=== PATIENT | female | born 1980 | race African-American/Black ===

== ENCOUNTER 2016-04-25 13:12 | Emergency (ER) | payer SELFPAY ==
--- NOTE | 2016-04-25 15:20 | EDDOCDS ---
Nurse's Notes [facility] Name: Jose Carlos Larry Age: 35 yrs Sex: Female : 1980 Arrival Date: 04/25/2016 Time: 13:12 Bed Family 1 Private MD: NO PRIMARY PHYSICIAN, . Diagnosis: Headache-carboxyhemaglobin level of 1.9% Presentation: 04/25 13:24 Presenting complaint: Patient states: here for carbon monoxide exposure . Some SOB, ttb nausea. Adult Sepsis Screening: The patient does not have new or worsening altered mentation. Patient's respiratory rate is less than 22. Systolic blood pressure is greater than 100. Patient has a qSOFA score of 0- Negative Sepsis Screen. Suicide/Homicide risk assessment- the patient denies having any suicidal and/or homicidal ideations and does not present with any other emotional, behavioral or mental health complaints. Status: Patient is not a reactor service operator or dependent. Transition of care: patient was not received from another setting of care. 13:24 Acuity: SHELLEY Level 4 ttb 13:24 Method Of Arrival: Walkin/Carried/Asstd ttb Triage Assessment: 13:22 General: Appears in no apparent distress, well nourished, well groomed, Behavior is ttb appropriate for age, cooperative, pleasant. Pain: Location: left lower leg pain. HIV screening NA for this visit Offered previously. Neurological: Level of Consciousness is awake, alert, Reports headache. Cardiovascular: Chest pain is denied. Respiratory: No deficits noted. Airway is patent Respiratory effort is even, unlabored. Respiratory: Reports shortness of breath at rest on exertion the patient has mild shortness of breath. GI: Reports nausea. Derm: Skin is normal. Injury Description: No known injury. 13:26 Pain: Location: bilateral legs from knee to foot. 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 none - PMHx: gestational diabetes; possible CHF; - PSHx: none; - Social history: Smoking status: Patient states was never smoker of tobacco. Patient/guardian denies using alcohol, street drugs, No barriers to communication noted, The patient speaks fluent Slovak, Speaks appropriately for age. - Family history: Pertinent for recent upper respiratory infection symptoms. - : The pt / caregiver states he / she is not on anticoagulants. Home medication list is obtained from the patient. - Exposure Risk Screening:: None identified. Screenin:18 Screening information is obtained from the patient. Fall risk: No risks identified. srm Assistance ADL's: requires no assistance with activities of daily living. Abuse/DV Screen: The patient / caregiver reports he/she is: not in a situation that causes fear, pain or injury. Nutritional screening: On. Nutritional screening: No deficits noted. Advance Directives: There is no active DNR order. home support is adequate. Assessment: 14:26 General: Appears in no apparent distress, Behavior is appropriate for age, cooperative. srm Neurological: No deficits noted. EENT: No deficits noted. Respiratory: No deficits noted. GI: No deficits noted. 15:18 General: Appears in no apparent distress, Behavior is appropriate for age, cooperative. srm Pain: Denies pain. Neurological: No deficits noted. EENT: No deficits noted. Respiratory: No deficits noted. Social Work Consult: 14:40 Social Work Note: Patient brought her children in with flu-like sx. During the course jl of their evaluation, they were noted to have carboxyhemoglobin levels that are consistent of a smoker. Patient denied any smokers in their residence & denied the use of any portable/secondary heaters. As a result, she & her 3rd child (who was asymptomatic) registered as patients. Both parties were found to have slightly elevated levels as well. Family was discussed with Swati Ramírez, pipe fitter, as well as [employer] (Isabel Waters), [facility] Leanna (Luciana Caldwell) & [facility] Code Enforcement Office. Classroom Paraprofessional (Pan Toño: [phone]) went to the residence & reported finding no evidence of any CO leak. They reportedly changed the battery in the smoke/CO detector in the unit while there & has cleared the family to return home. Patient denied having any other D/C planning needs at this time. Support extended. Vital Signs: 13:25 BP 129 / 88; Pulse 105; Resp 18; Temp 97.8(O); Pulse Ox 99% on R/A; Weight 104.33 kg jjr (R); Height 5 ft. 2 in. (157.48 cm) (R); Pain 8/10; 14:37 BP 142 / 94; Pulse 102; Resp 18; Temp 98.5(O); Pulse Ox 99% on R/A; Pain 0/10; dem1 13:25 Body Mass Index 42.07 (104.33 kg, 157.48 cm) [facility] Vitals: 13:14 Log In Time: April 25, 2016 at 13:12. elp ED Course: 13:14 Patient visited by Belkis Louise PCA. elp 13:14 NO PRIMARY PHYSICIAN, . is Private Physician. elp 13:14 Patient visited by Belkis Louise PCA. elp 13:14 Patient moved to Waiting elp 13:16 Patient moved to Family 1 kc3 13:22 [facility] ar2 13:22 Jonas Melendez MD is Attending Physician. ar2 13:23 Patient visited by Kerrie Quijano RN. ttb 13:24 Patient visited by Kerrie Quijano RN. ttb 13:24 Triage Initiated ttb 13:28 Patient visited by Piero Garcia PA-C. ar2 14:27 Patient visited by Kiley Cardozo, MONSE. srm 14:29 Patient name changed from Vernette\S\\S\Larry\S\ to Vernette\S\ \S\Larry. EDMS 14:35 [facility] Payment Agreement was scanned into [employer] and attached to record. mm15 14:37 Patient visited by Mikal Venegas. dem1 15:19 The patient / caregiver is instructed regarding the plan of care and ED course. srm Accompanied by Family Member, Patient has correct armband on for positive identification. 15:19 No IV's were initiated during this patient's visit. No procedures done that require srm assistance. Order Results: Lab Order: Carboxyhemoglobin; SPEC'M 04/25/16 13:23 Test: CARBOXYHEMOGLOBIN; Value: 1.9; Range: 0.0-1.5; Abnormal: Above high normal; Units: %; Status: F Test Note: ; CARBOXYHEMOGLOBIN EXPECTED VALUES SUBURBAN NON-SMOKERS LESS THAN 1.5% SMOKERS 1.5-5.0% HEAVY SMOKERS 5.0-9.0% Outcome: 14:43 Discharge ordered by Provider. ar2 15:19 Discharge Assessment: Patient awake, alert and oriented x 3. No cognitive and/or srm functional deficits noted. Patient verbalized understanding of disposition instructions. patient administered narcotics - no. The following High Risk Discharge criteria are identified: None. Discharged to home with family. Condition: stable. Discharge instructions given to patient, Instructed on discharge instructions, follow up and referral plans. Demonstrated understanding of instructions, Pt was receptive of discharge instructions/ teaching. No special radiology studies were completed. Property sent home with patient. 15:19 Patient left the ED. srm Signatures: Dispatcher MedHost EDMS Kiley Cardozo, RN RN srm Jake, Larry, PSA PSA Tala Long RN RN jjr Robertshaw, Aaron, PA-C PAAlberto ar2 Mikal Venegas1 Kerrie Quijano RN RN ttb Isa Rodríguez mm15 Belkis Louise, WORKS MANAGER WORKS MANAGER Salima CuencaRN RN kc3 Corrections: (The following items were deleted from the chart) 15:00 14:40 Social Work Note: Patient brought her children in with flu-like sx. During the course of their evaluation, they were noted to have carboxyhemoglobin levels that are consistent of a smoker. Patient denied any smokers in their residence & denied the use of any portable/secondary heaters. As a result, she & her 3rd child (who was asymptomatic) registered as patients. Both parties were found to have slightly elevated levels as well. Family was discussed with Swati Ramírez, pipe fitter, as well as JC, [facility] & [facility] Code Enforcement Office. Code Enforcement went to the residence & reported finding no evidence of any CO leak. They reportedly changed the battery in the smoke/CO detector in the unit while there & has cleared the family to return home. Patient denied having any other D/C planning needs at this time. Support extended 15:19 15:18 Family history Not pertinent, srm srm MTDD
--- NOTE | 2016-04-25 15:20 | EDDOCDS ---
Physician Documentation [facility] Name: Jose Carlos Larry Age: 35 yrs Sex: Female : 1980 Arrival Date: 04/25/2016 Time: 13:12 Bed Family 1 Private MD: NO PRIMARY PHYSICIAN, . Disposition: 04/25/16 14:43 Discharged to Home/Self Care. Impression: Headache - carboxyhemaglobin level of 1.9%. - Condition is Stable. - Discharge Instructions: Carbon Monoxide Poisoning, General Headache Without Cause. - Referral List Call for Appointment, Medication Reconciliation, Local Pharmacy Hours form. - Follow up: Emergency Department; When: As needed; Reason: Trouble breathing, Worsening of conditions. - Problem is new. - Symptoms are resolved. - Notes: may use tylenol or ibuprofen for headache as needed. your apartment has been investigated and found safe to reside in, there is no carbon monoxide leak Historical: - Allergies: no known allergies; - Home Meds: 1. none - PMHx: gestational diabetes; possible CHF; - PSHx: none; - Social history: Smoking status: Patient states was never smoker of tobacco. Patient/guardian denies using alcohol, street drugs, No barriers to communication noted, The patient speaks fluent Grenadian, Speaks appropriately for age. - Family history: Pertinent for recent upper respiratory infection symptoms. - : The pt / caregiver states he / she is not on anticoagulants. Home medication list is obtained from the patient. - Exposure Risk Screening:: None identified. 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 2 in. (157.48 cm) (R); Pain 8/10; 14:37 BP 142 / 94; Pulse 102; Resp 18; Temp 98.5(O); Pulse Ox 99% on R/A; Pain 0/10; dem1 13:25 Body Mass Index 42.07 (104.33 kg, 157.48 cm) jjr MDM: 13:26 Carboxyhemoglobin Ordered. EDMS 13:43 Carboxyhemoglobin Reviewed. ar2 13:45 Financial registration complete. mm15 14:35 [facility] Payment Agreement was scanned into [employer] and attached to record. mm15 Signatures: Dispatcher MedHost Kiley Kay RN RN srm Piero Garcia, SANJU PAAlberto ar2 Kerrie Quijano RN RN ttb Isa Rodríguez mm15 The chart was reviewed and I authenticate all verbal orders and agree with the evaluation and treatment provided.Corrections: (The following items were deleted from the chart) 15:19 15:18 Family history Not pertinent, srm srm Attachments: 14:35 [facility] Payment Agreement mm15 MTDD
--- NOTE | 2016-04-27 16:20 | EDDOCDS ---
Physician Documentation [facility] Name: Jose Carlos Larry Age: 35 yrs Sex: Female : 1980 Arrival Date: 04/25/2016 Time: 13:12 Bed Family 1 Private MD: NO PRIMARY PHYSICIAN, . Disposition: 04/25/16 14:43 Discharged to Home/Self Care. Impression: Headache - carboxyhemaglobin level of 1.9%. - Condition is Stable. - Discharge Instructions: Carbon Monoxide Poisoning, General Headache Without Cause. - Referral List Call for Appointment, Medication Reconciliation, Local Pharmacy Hours form. - Follow up: Emergency Department; When: As needed; Reason: Trouble breathing, Worsening of conditions. - Problem is new. - Symptoms are resolved. - Notes: may use tylenol or ibuprofen for headache as needed. your apartment has been investigated and found safe to reside in, there is no carbon monoxide leak Historical: - Allergies: no known allergies; - Home Meds: 1. none - PMHx: gestational diabetes; possible CHF; - PSHx: none; - Social history: Smoking status: Patient states was never smoker of tobacco. Patient/guardian denies using alcohol, street drugs, No barriers to communication noted, The patient speaks fluent Irish, Speaks appropriately for age. - Family history: Pertinent for recent upper respiratory infection symptoms. - : The pt / caregiver states he / she is not on anticoagulants. Home medication list is obtained from the patient. - Exposure Risk Screening:: None identified. 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 2 in. (157.48 cm) (R); Pain 8/10; 14:37 BP 142 / 94; Pulse 102; Resp 18; Temp 98.5(O); Pulse Ox 99% on R/A; Pain 0/10; dem1 13:25 Body Mass Index 42.07 (104.33 kg, 157.48 cm) jjr MDM: 13:26 Carboxyhemoglobin Ordered. EDMS 13:43 Carboxyhemoglobin Reviewed. ar2 13:45 Financial registration complete. mm15 14:35 [facility] Payment Agreement was scanned into [employer] and attached to record. mm15 17:25 T-Sheet-- Draft Copy was scanned into Gem[employer] and attached to record. klr Signatures: Dispatcher MedHost Kiley Kay RN RN srm Piero Garcia, SANJU BILLS ar2 Kerrie Quijano RN RN ttb McGrath, Marlynn mm15 Alejandra Abdul klr The chart was reviewed and I authenticate all verbal orders and agree with the evaluation and treatment provided.Corrections: (The following items were deleted from the chart) 15:19 15:18 Family history Not pertinent, srm srm Attachments: 14:35 [facility] Payment Agreement mm15 17:25 T-Sheet-- Draft Copy klr Chart Complete MTDD
--- NOTE | 2016-04-27 16:20 | EDDOCDS ---
Nurse's Notes [facility] Name: Jose Carlos Larry Age: 35 yrs Sex: Female : 1980 Arrival Date: 04/25/2016 Time: 13:12 Bed Family 1 Private MD: NO PRIMARY PHYSICIAN, . Diagnosis: Headache-carboxyhemaglobin level of 1.9% Presentation: 04/25 13:24 Presenting complaint: Patient states: here for carbon monoxide exposure . Some SOB, ttb nausea. Adult Sepsis Screening: The patient does not have new or worsening altered mentation. Patient's respiratory rate is less than 22. Systolic blood pressure is greater than 100. Patient has a qSOFA score of 0- Negative Sepsis Screen. Suicide/Homicide risk assessment- the patient denies having any suicidal and/or homicidal ideations and does not present with any other emotional, behavioral or mental health complaints. Status: Patient is not a job service consultant or dependent. Transition of care: patient was not received from another setting of care. 13:24 Acuity: SHELLEY Level 4 ttb 13:24 Method Of Arrival: Walkin/Carried/Asstd ttb Triage Assessment: 13:22 General: Appears in no apparent distress, well nourished, well groomed, Behavior is ttb appropriate for age, cooperative, pleasant. Pain: Location: left lower leg pain. HIV screening NA for this visit Offered previously. Neurological: Level of Consciousness is awake, alert, Reports headache. Cardiovascular: Chest pain is denied. Respiratory: No deficits noted. Airway is patent Respiratory effort is even, unlabored. Respiratory: Reports shortness of breath at rest on exertion the patient has mild shortness of breath. GI: Reports nausea. Derm: Skin is normal. Injury Description: No known injury. 13:26 Pain: Location: bilateral legs from knee to foot. 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 none - PMHx: gestational diabetes; possible CHF; - PSHx: none; - Social history: Smoking status: Patient states was never smoker of tobacco. Patient/guardian denies using alcohol, street drugs, No barriers to communication noted, The patient speaks fluent Lithuanian, Speaks appropriately for age. - Family history: Pertinent for recent upper respiratory infection symptoms. - : The pt / caregiver states he / she is not on anticoagulants. Home medication list is obtained from the patient. - Exposure Risk Screening:: None identified. Screenin:18 Screening information is obtained from the patient. Fall risk: No risks identified. srm Assistance ADL's: requires no assistance with activities of daily living. Abuse/DV Screen: The patient / caregiver reports he/she is: not in a situation that causes fear, pain or injury. Nutritional screening: On. Nutritional screening: No deficits noted. Advance Directives: There is no active DNR order. home support is adequate. Assessment: 14:26 General: Appears in no apparent distress, Behavior is appropriate for age, cooperative. srm Neurological: No deficits noted. EENT: No deficits noted. Respiratory: No deficits noted. GI: No deficits noted. 15:18 General: Appears in no apparent distress, Behavior is appropriate for age, cooperative. srm Pain: Denies pain. Neurological: No deficits noted. EENT: No deficits noted. Respiratory: No deficits noted. Social Work Consult: 14:40 Social Work Note: Patient brought her children in with flu-like sx. During the course jl of their evaluation, they were noted to have carboxyhemoglobin levels that are consistent of a smoker. Patient denied any smokers in their residence & denied the use of any portable/secondary heaters. As a result, she & her 3rd child (who was asymptomatic) registered as patients. Both parties were found to have slightly elevated levels as well. Family was discussed with Swati Ramírez, ecology professor, as well as [facility] (Isabel Waters), [facility] Leanna (Luciana Caldwell) & [facility] Code Enforcement Office. Tip Mender (Pan Toño: [phone]) went to the residence & reported finding no evidence of any CO leak. They reportedly changed the battery in the smoke/CO detector in the unit while there & has cleared the family to return home. Patient denied having any other D/C planning needs at this time. Support extended. Vital Signs: 13:25 BP 129 / 88; Pulse 105; Resp 18; Temp 97.8(O); Pulse Ox 99% on R/A; Weight 104.33 kg jjr (R); Height 5 ft. 2 in. (157.48 cm) (R); Pain 8/10; 14:37 BP 142 / 94; Pulse 102; Resp 18; Temp 98.5(O); Pulse Ox 99% on R/A; Pain 0/10; dem1 13:25 Body Mass Index 42.07 (104.33 kg, 157.48 cm) [facility] Vitals: 13:14 Log In Time: April 25, 2016 at 13:12. elp ED Course: 13:14 Patient visited by Belkis Louise PCA. elp 13:14 NO PRIMARY PHYSICIAN, . is Private Physician. elp 13:14 Patient visited by Belkis Louise PCA. elp 13:14 Patient moved to Waiting elp 13:16 Patient moved to Family 1 kc3 13:22 [facility] ar2 13:22 Jonas Melendez MD is Attending Physician. ar2 13:23 Patient visited by Kerrie Quijano RN. ttb 13:24 Patient visited by Kerrie Quijano RN. ttb 13:24 Triage Initiated ttb 13:28 Patient visited by Piero Garcia PA-C. ar2 14:27 Patient visited by Kiley Cardozo RN. srm 14:29 Patient name changed from Vernette\S\\S\Larry\S\ to Vernette\S\ \S\Larry. EDMS 14:35 [facility] Payment Agreement was scanned into [employer] and attached to record. mm15 14:37 Patient visited by Mikal Venegas. dem1 15:19 The patient / caregiver is instructed regarding the plan of care and ED course. srm Accompanied by Family Member, Patient has correct armband on for positive identification. 15:19 No IV's were initiated during this patient's visit. No procedures done that require srm assistance. 17:25 T-Sheet-- Draft Copy was scanned into T[employer] and attached to record. klr Order Results: Lab Order: Carboxyhemoglobin; SPEC'M 04/25/16 13:23 Test: CARBOXYHEMOGLOBIN; Value: 1.9; Range: 0.0-1.5; Abnormal: Above high normal; Units: %; Status: F Test Note: ; CARBOXYHEMOGLOBIN EXPECTED VALUES SUBURBAN NON-SMOKERS LESS THAN 1.5% SMOKERS 1.5-5.0% HEAVY SMOKERS 5.0-9.0% Outcome: 14:43 Discharge ordered by Provider. ar2 15:19 Discharge Assessment: Patient awake, alert and oriented x 3. No cognitive and/or srm functional deficits noted. Patient verbalized understanding of disposition instructions. patient administered narcotics - no. The following High Risk Discharge criteria are identified: None. Discharged to home with family. Condition: stable. Discharge instructions given to patient, Instructed on discharge instructions, follow up and referral plans. Demonstrated understanding of instructions, Pt was receptive of discharge instructions/ teaching. No special radiology studies were completed. Property sent home with patient. 15:19 Patient left the ED. srm Signatures: Dispatcher MedHost EDMS Kiley Cardozo, RN RN srm Larry Joseph, CARLINE PSA Tala Long RN RN jPiero Pelayo, PA-C PA-C ar2 Mikal Venegas1 Kerrie Quijano RN RN Isa Joe mm15 Belkis Louise, CORI REAL ESTATE FINANCIAL ANALYST Salima Cuenca RN RN [id number] Alejandra Abdul Corrections: (The following items were deleted from the chart) 15:00 14:40 Social Work Note: Patient brought her children in with flu-like sx. During the jl course of their evaluation, they were noted to have carboxyhemoglobin levels that are consistent of a smoker. Patient denied any smokers in their residence & denied the use of any portable/secondary heaters. As a result, she & her 3rd child (who was asymptomatic) registered as patients. Both parties were found to have slightly elevated levels as well. Family was discussed with Swati Ramírez, ecology professor, as well as JC, [facility] & [facility] Code Enforcement Office. Code Enforcement went to the residence & reported finding no evidence of any CO leak. They reportedly changed the battery in the smoke/CO detector in the unit while there & has cleared the family to return home. Patient denied having any other D/C planning needs at this time. Support extended jl 15:19 15:18 Family history Not pertinent, srm srm Chart Complete MTDD
--- NOTE | 2016-04-27 16:20 | EDDOCDS ---
Physician Documentation [facility] Name: Jose Carlos Larry Age: 35 yrs Sex: Female : 1980 Arrival Date: 04/25/2016 Time: 13:12 Bed Family 1 Private MD: NO PRIMARY PHYSICIAN, . Disposition: 04/25/16 14:43 Discharged to Home/Self Care. Impression: Headache - carboxyhemaglobin level of 1.9%. - Condition is Stable. - Discharge Instructions: Carbon Monoxide Poisoning, General Headache Without Cause. - Referral List Call for Appointment, Medication Reconciliation, Local Pharmacy Hours form. - Follow up: Emergency Department; When: As needed; Reason: Trouble breathing, Worsening of conditions. - Problem is new. - Symptoms are resolved. - Notes: may use tylenol or ibuprofen for headache as needed. your apartment has been investigated and found safe to reside in, there is no carbon monoxide leak Historical: - Allergies: no known allergies; - Home Meds: 1. none - PMHx: gestational diabetes; possible CHF; - PSHx: none; - Social history: Smoking status: Patient states was never smoker of tobacco. Patient/guardian denies using alcohol, street drugs, No barriers to communication noted, The patient speaks fluent Bhutanese, Speaks appropriately for age. - Family history: Pertinent for recent upper respiratory infection symptoms. - : The pt / caregiver states he / she is not on anticoagulants. Home medication list is obtained from the patient. - Exposure Risk Screening:: None identified. 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 2 in. (157.48 cm) (R); Pain 8/10; 14:37 BP 142 / 94; Pulse 102; Resp 18; Temp 98.5(O); Pulse Ox 99% on R/A; Pain 0/10; dem1 13:25 Body Mass Index 42.07 (104.33 kg, 157.48 cm) jjr MDM: 13:26 Carboxyhemoglobin Ordered. EDMS 13:43 Carboxyhemoglobin Reviewed. ar2 13:45 Financial registration complete. mm15 14:35 [facility] Payment Agreement was scanned into [employer] and attached to record. mm15 17:25 T-Sheet-- Draft Copy was scanned into [employer] and attached to record. klr Signatures: Dispatcher MedHost Kiley Kay RN RN srm Piero Garcia, SANJU BILLS ar2 Kerrie Quijano RN RN ttb McGrath, Marlynn mm15 Alejandra Abdul klr The chart was reviewed and I authenticate all verbal orders and agree with the evaluation and treatment provided.Corrections: (The following items were deleted from the chart) 15:19 15:18 Family history Not pertinent, srm srm Attachments: 14:35 [facility] Payment Agreement mm15 17:25 T-Sheet-- Draft Copy klr Chart Complete MTDD
== END 2016-04-25 15:19 | disposition home or self-care (01) ==
LOC: M ED 13:12
DX: R51 Headache (principal); R79.9 Abnormal finding of blood chemistry, unspecified; Z86.32 Personal history of gestational diabetes

== ENCOUNTER 2016-11-25 09:30 | Emergency (ER) | payer MEDICAID, OTHER, SELFPAY ==
[~2016-11-25] VITALS: Ht 157.5 cm; Wt 118.9 kg
[2016-11-25 09:31] VITALS: BP 154/91
[2016-11-25] MEDS ORDERED: IBUP80TA PO (10:28)
[2016-11-25] MEDS ORDERED: AMOX500C PO (10:28)
[2016-11-25] MEDS ORDERED: AMOXICILLIN 500 MG CAP PO ONE (10:30)
[2016-11-25] MEDS ORDERED: NORCO, ANEXSIA 5/325MG TABLET (HYDROcodone/ACETAMINOPHEN) PO ONE (10:30)
[2016-11-25] MEDS ORDERED: IBUPROFEN 800 MG TAB PO ONE (10:30)
== END 2016-11-25 11:05 | disposition home or self-care (01) ==
LOC: M ED 09:30
DX: K02.9 Dental caries, unspecified (principal)

== ENCOUNTER 2017-01-20 16:03 | Emergency (ER) | payer MEDICAID, OTHER ==
[~2017-01-20] VITALS: Ht 157.5 cm; Wt 119.7 kg
[~2017-01-20 16:03] MED LIST: AMOX500C PO; IBUP80TA PO
[2017-01-20] MEDS ORDERED: NS 1,000 ML IV SCH (16:37)
[2017-01-20] MEDS ORDERED: ONDANSETRON 4MG/2ML VIAL (J2405) IV ONE (16:45)
[2017-01-20] MEDS ORDERED: KETOROLAC 30 MG/ML VIAL (J1885) IV ONE (16:45)
[2017-01-20] MEDS ORDERED: FAMOTIDINE IV BAG 20 MG in APPROPRIATE DILUENT 1 EA IV ONE (16:45)
[2017-01-20 17:46] LABS: BASO % 0.2 % (0.0-1.0); EOS # 0.1 10^3/uL (0.0-0.50); EOS % 1.2 % (0.0-3.0); IMMATURE GRANULOCYTE % 0.2 % (0-0); LYMPH # 1.9 10^3/uL (1.5-4.5); LYMPH % 40.2 % (24.0-44.0); MEAN CORPUSCULAR HEMOGLOBIN 25.3 pg (27.0-33.0); MEAN CORPUSCULAR HGB CONC 30.8 g/dl (32.0-36.5); MONO # 0.3 10^3/uL (0.0-0.8); MONO % 6.8 % (0.0-5.0); NEUTROPHILS # 2.5 10^3/uL (1.8-7.7); NEUTROPHILS % 51.4 % (36.0-66.0); PLATELET COUNT, AUTOMATED 322 10^3/uL (150-450); RED CELL DISTRIBUTION WIDTH 15.7 % (11.5-14.5); WHITE BLOOD COUNT 4.8 10^3/uL (4.0-10.0)
[2017-01-20 17:51] LABS: INR 0.95
--- NOTE | 2017-01-20 17:53 | REP ---
RIGHT UPPER QUADRANT ULTRASOUND: Real-time sonographic evaluation of the right upper quadrant performed. The gallbladder appears somewhat contracted. No gallstones are seen. There is no gallbladder wall thickening. There is no pericholecystic fluid. There is no intrahepatic or extrahepatic biliary dilatation, the common bile duct measuring 5 mm in diameter. No gross liver mass is seen. No gross pancreatic mass is seen, the pancreas is not well seen due to overlying bowel gas. The right kidney demonstrates no hydronephrosis or nephrolithiasis with normal size at 10.9 cm in length. IMPRESSION: Essentially negative right upper quadrant ultrasound. Signed by Fabricio Correa MD 01/22/2017 07:20 P
[2017-01-20 17:54] LABS: CONTROL LINE HCG INT CTR LINE PRESENT
[2017-01-20 17:59] LABS: ALBUMIN 3.5 GM/DL (3.2-5.2); ALBUMIN/GLOBULIN RATIO 0.71 (1.00-1.93); ALKALINE PHOSPHATASE 80 U/L (45-117); ALT/SGPT 17 U/L (12-78); AMYLASE 43 U/L (25-115); ANION GAP 8 MEQ/L (8-16); AST/SGOT 13 U/L (7-37); BILIRUBIN,DIRECT < 0.1 MG/DL (0.0-0.2); BILIRUBIN,TOTAL 0.2 MG/DL (0.2-1.0); BLOOD UREA NITROGEN 15 MG/DL (7-18); CARBON DIOXIDE LEVEL 30 MEQ/L (21-32); CHLORIDE LEVEL 102 MEQ/L (98-107); CREATININE FOR GFR 0.87 MG/DL (0.55-1.02); GLOMERULAR FILTRATION RATE > 60.0 (>60); GLUCOSE, FASTING 81 MG/DL (70-105); POTASSIUM SERUM 3.3 MEQ/L (3.5-5.1); SODIUM LEVEL 140 MEQ/L (136-145); TOTAL PROTEIN 8.4 GM/DL (6.4-8.2)
[2017-01-20] MEDS ORDERED: OMEP10CASR PO (18:18)
[2017-01-20 19:15] VITALS: BP 162/98
--- NOTE | 2017-01-20 20:16 | REP ---
HISTORY: Abdominal pain. FINDINGS: The superior mediastinal structures are midline. The cardiac silhouette is unremarkable in size, shape and position. The diaphragmatic surfaces of the lungs are regular and the costophrenic angles are clear. The pulmonary moctezuma are clear. The imaged osseous structures are intact. IMPRESSION: There is no acute cardiopulmonary disease. Signed by Jaiden Romero DO 01/23/2017 06:11 P
== END 2017-01-20 19:10 | disposition home or self-care (01) ==
LOC: M ED 16:03
DX: R10.9 Unspecified abdominal pain (principal); R11.0 Nausea
CPT/HCPCS: 71020; 76705; 80048; 80076; 81001; 81025; 82150; 83690; 84703; 85025; 85610; 87086; 96365; 96366; 96375; 99284; J1885; J2405

== ENCOUNTER 2017-04-30 14:10 | Emergency (ER) | payer OTHER | END 2017-04-30 14:55 | disposition left against medical advice (07) | LOC: M ED 14:55 | DX: Z53.29 Procedure and treatment not carried out because of patient's decision for other reasons (principal) ==

== ENCOUNTER 2017-05-01 13:49 | Emergency (ER) | payer OTHER ==
[2017-05-01] MEDS: NORCO, ANEXSIA 5/325MG TABLET (HYDROcodone/ACETAMINOPHEN) PO (15:06)
== END 2017-05-01 15:18 | disposition home or self-care (01) ==
LOC: M ED 13:49
DX: B02.9 Zoster without complications (principal); R06.02 Shortness of breath; I50.9 Heart failure, unspecified
CPT/HCPCS: 99282

== ENCOUNTER 2017-05-21 18:40 | Emergency (ER) | payer OTHER ==
[2017-05-21] MEDS: SIMETHICONE 80 MG CHEW TAB PO (23:28)
[2017-05-21] MEDS: MAALOX 30 ML SUSP *UDC PO (23:30)
[2017-05-21 23:55] LABS: BASO % 0.2 % (0.0-1.0); EOS # 0.1 10^3/uL (0.0-0.50); EOS % 1.6 % (0.0-3.0); HEMATOCRIT 36.2 % (36.0-47.0); IMMATURE GRANULOCYTE % 0.2 % (0-3.0); LYMPH # 2.6 10^3/uL (1.5-4.5); LYMPH % 40.3 % (24.0-44.0); MEAN CORPUSCULAR HEMOGLOBIN 24.9 pg (27.0-33.0); MEAN CORPUSCULAR HGB CONC 30.4 g/dl (32.0-36.5); MEAN CORPUSCULAR VOLUME 81.9 fl (80.0-96.0); MONO # 0.3 10^3/uL (0.0-0.8); MONO % 5.4 % (0.0-5.0); NEUTROPHILS # 3.3 10^3/uL (1.8-7.7); NEUTROPHILS % 52.3 % (36.0-66.0); PLATELET COUNT, AUTOMATED 306 10^3/uL (150-450); RED BLOOD COUNT 4.42 10^6/uL (4.00-5.40); RED CELL DISTRIBUTION WIDTH 16.4 % (11.5-14.5); WHITE BLOOD COUNT 6.3 10^3/uL (4.0-10.0)
[2017-05-22 00:20] LABS: ALBUMIN 3.6 GM/DL (3.2-5.2); ALBUMIN/GLOBULIN RATIO 0.75 (1.00-1.93); ALKALINE PHOSPHATASE 82 U/L (45-117); ALT/SGPT 18 U/L (12-78); ANION GAP 8 MEQ/L (8-16); AST/SGOT 11 U/L (7-37); BILIRUBIN,DIRECT < 0.1 MG/DL (0.0-0.2); BILIRUBIN,TOTAL 0.3 MG/DL (0.2-1.0); BLOOD UREA NITROGEN 18 MG/DL (7-18); CALCIUM LEVEL 9.1 MG/DL (8.5-10.1); CARBON DIOXIDE LEVEL 28 MEQ/L (21-32); CHLORIDE LEVEL 103 MEQ/L (98-107); CREATININE FOR GFR 0.89 MG/DL (0.55-1.30); GLOMERULAR FILTRATION RATE > 60.0 (>60); GLUCOSE, FASTING 99 MG/DL (70-100); HCG, SERUM QUANTITATIVE < 1.0 MIU/ML; LIPASE 82 U/L (73-393); POTASSIUM SERUM 3.8 MEQ/L (3.5-5.1); SODIUM LEVEL 139 MEQ/L (136-145); TOTAL PROTEIN 8.4 GM/DL (6.4-8.2)
[2017-05-22 01:40] LABS: CHLAMYDIA DNA AMPLIFICATION NEGATIVE (NEGATIVE); GC DNA AMPLIFICATION NEGATIVE (NEGATIVE)
[2017-05-22 08:35] LABS: PROLACTIN 6.2 NG/ML
== END 2017-05-22 01:32 | disposition home or self-care (01) ==
LOC: M ED 18:40
DX: N76.0 Acute vaginitis (principal); R10.12 Left upper quadrant pain
CPT/HCPCS: 76856

== ENCOUNTER 2017-07-10 02:09 | Emergency (ER) | payer OTHER ==
[2017-07-10] MEDS: DERMABOND TOPICAL SKIN ADHESIVE TOP (04:00)
== END 2017-07-10 04:23 | disposition home or self-care (01) ==
LOC: M ED 02:09
DX: S01.81XA Laceration without foreign body of other part of head, initial encounter (principal); W01.190A Fall on same level from slipping, tripping and stumbling with subsequent striking against furniture, initial encounter; Y92.89 Other specified places as the place of occurrence of the external cause
CPT/HCPCS: 12011

== ENCOUNTER 2017-08-19 16:41 | Emergency (ER) | payer OTHER ==
[2017-08-19] MEDS ORDERED: ACETAMINOPHEN 325 MG TAB (16:42)
[2017-08-20 02:57] LABS: ALBUMIN 3.6 GM/DL (3.2-5.2); ALBUMIN/GLOBULIN RATIO 0.78 (1.00-1.93); ALKALINE PHOSPHATASE 91 U/L (45-117); ALT/SGPT 22 U/L (12-78); ANION GAP 6 MEQ/L (8-16); AST/SGOT 11 U/L (7-37); BILIRUBIN,TOTAL 0.2 MG/DL (0.2-1.0); BLOOD UREA NITROGEN 16 MG/DL (7-18); CALCIUM LEVEL 8.6 MG/DL (8.5-10.1); CARBON DIOXIDE LEVEL 26 MEQ/L (21-32); CHLORIDE LEVEL 105 MEQ/L (98-107); CREATININE FOR GFR 0.87 MG/DL (0.55-1.30); GLOMERULAR FILTRATION RATE > 60.0 (>60); GLUCOSE, FASTING 167 MG/DL (70-100); HCG, SERUM QUANTITATIVE 2385 MIU/ML; POTASSIUM SERUM 3.5 MEQ/L (3.5-5.1); SODIUM LEVEL 137 MEQ/L (136-145); TOTAL PROTEIN 8.2 GM/DL (6.4-8.2)
[2017-08-20 03:56] LABS: BASO % 0.2 % (0.0-1.0); EOS # 0.1 10^3/uL (0.0-0.50); HEMATOCRIT 34.9 % (36.0-47.0); HEMOGLOBIN 10.8 g/dl (12.0-15.5); IMMATURE GRANULOCYTE % 0.3 % (0-3.0); LYMPH % 33.4 % (24.0-44.0); MEAN CORPUSCULAR HEMOGLOBIN 25.5 pg (27.0-33.0); MEAN CORPUSCULAR HGB CONC 30.9 g/dl (32.0-36.5); MEAN CORPUSCULAR VOLUME 82.3 fl (80.0-96.0); MONO # 0.4 10^3/uL (0.0-0.8); MONO % 5.9 % (0.0-5.0); NEUTROPHILS # 3.5 10^3/uL (1.8-7.7); NEUTROPHILS % 59.2 % (36.0-66.0); PLATELET COUNT, AUTOMATED 298 10^3/uL (150-450); RED BLOOD COUNT 4.24 10^6/uL (4.00-5.40)
[2017-08-20 04:43] LABS: APPEARANCE, URINE HAZY (CLEAR); BACTERIA, URINE AUTO NEGATIVE (NEGATIVE); BILIRUBIN, URINE AUTO NEGATIVE (NEGATIVE); BLOOD, URINE BLOOD NEGATIVE (NEGATIVE); COLOR, URINE YELLOW (YELLOW); GLUCOSE, URINE (UA) AUTO 2+ mg/dL (NEGATIVE); KETONE, URINE AUTO TRACE mg/dL (NEGATIVE); LEUKOCYTE ESTERASE, URINE AUTO NEGATIVE (NEGATIVE); MUCUS, URINE SMALL (NEGATIVE); NITRITE, URINE AUTO NEGATIVE (NEGATIVE); PROTEIN, URINE AUTO 1+ mg/dL (NEGATIVE); RBC, URINE AUTO 2 /HPF (0-3); SPECIFIC GRAVITY URINE AUTO 1.033 (1.002-1.035); SQUAMOUS EPITHELIAL CELL UR AU 1 /HPF (0-6); WBC, URINE AUTO 1 /HPF (0-3)
== END 2017-08-20 00:03 | disposition home or self-care (01) ==
LOC: M ED 16:41
DX: Z32.01 Encounter for pregnancy test, result positive (principal); O26.891 Other specified pregnancy related conditions, first trimester; O09.521 Supervision of elderly multigravida, first trimester
CPT/HCPCS: 93975

== ENCOUNTER 2017-09-10 13:45 | Emergency (ER) | payer OTHER ==
[2017-09-10 16:00] LABS: BASO % 0.2 % (0.0-1.0); EOS # 0.3 10^3/uL (0.0-0.50); EOS % 4.5 % (0.0-3.0); HEMATOCRIT 34.4 % (36.0-47.0); HEMOGLOBIN 10.7 g/dl (12.0-15.5); IMMATURE GRANULOCYTE % 0.2 % (0-3.0); LYMPH # 1.7 10^3/uL (1.5-4.5); LYMPH % 30.7 % (24.0-44.0); MEAN CORPUSCULAR HEMOGLOBIN 25.2 pg (27.0-33.0); MEAN CORPUSCULAR HGB CONC 31.1 g/dl (32.0-36.5); MEAN CORPUSCULAR VOLUME 80.9 fl (80.0-96.0); MONO # 0.4 10^3/uL (0.0-0.8); MONO % 7.2 % (0.0-5.0); NEUTROPHILS # 3.2 10^3/uL (1.8-7.7); NEUTROPHILS % 57.2 % (36.0-66.0); PLATELET COUNT, AUTOMATED 279 10^3/uL (150-450); RED BLOOD COUNT 4.25 10^6/uL (4.00-5.40); RED CELL DISTRIBUTION WIDTH 16.1 % (11.5-14.5); WHITE BLOOD COUNT 5.6 10^3/uL (4.0-10.0)
[2017-09-10 16:04] LABS: KETONE, URINE AUTO RFX NEGATIVE (NEGATIVE); LEUKOCYTE ESTERASE UR AUTO RFX NEGATIVE (NEGATIVE); NITRITE, URINE AUTO RFX POSITIVE (NEGATIVE); RBC, URINE AUTO RFX 61 /HPF (0-3); SPECIFIC GRAVITY UR AUTO RFX 1.016 (1.002-1.035); SQUAM EPITHELIAL CELL UR AURFX 6 /HPF (0-6); WBC, URINE AUTO RFX 1 /HPF (0-3)
[2017-09-10 16:10] LABS: INR 0.95; PROTHROMBIN TIME 12.8 SECONDS (12.4-14.5)
[2017-09-10 16:45] LABS: ALBUMIN 3.4 GM/DL (3.2-5.2); ALBUMIN/GLOBULIN RATIO 0.81 (1.00-1.93); ALKALINE PHOSPHATASE 82 U/L (45-117); ALT/SGPT 15 U/L (12-78); ANION GAP 8 MEQ/L (8-16); AST/SGOT 11 U/L (7-37); BILIRUBIN,DIRECT < 0.1 MG/DL (0.0-0.2); BILIRUBIN,TOTAL 0.2 MG/DL (0.2-1.0); BLOOD UREA NITROGEN 10 MG/DL (7-18); CALCIUM LEVEL 8.7 MG/DL (8.5-10.1); CARBON DIOXIDE LEVEL 27 MEQ/L (21-32); CHLORIDE LEVEL 103 MEQ/L (98-107); CREATININE FOR GFR 0.81 MG/DL (0.55-1.30); GLOMERULAR FILTRATION RATE > 60.0 (>60); GLUCOSE, FASTING 93 MG/DL (70-100); HCG, SERUM QUANTITATIVE 4470 MIU/ML; POTASSIUM SERUM 4.2 MEQ/L (3.5-5.1); SODIUM LEVEL 138 MEQ/L (136-145); TOTAL PROTEIN 7.6 GM/DL (6.4-8.2)
== END 2017-09-10 20:00 | disposition home or self-care (01) ==
LOC: M ED 13:45
DX: O20.0 Threatened abortion (principal); O99.411 Diseases of the circulatory system complicating pregnancy, first trimester; I50.9 Heart failure, unspecified; Z3A.01 Less than 8 weeks gestation of pregnancy
CPT/HCPCS: 76801

== ENCOUNTER 2018-01-26 08:57 | Emergency (ER) | payer OTHER ==
[2018-01-26] MEDS: IBUPROFEN 800 MG TAB PO (09:50)
== END 2018-01-26 09:55 | disposition home or self-care (01) ==
LOC: M ED 08:57
DX: H66.92 Otitis media, unspecified, left ear (principal); J02.9 Acute pharyngitis, unspecified; I50.9 Heart failure, unspecified
CPT/HCPCS: 87880

== ENCOUNTER 2018-06-17 19:11 | Emergency (ER) | payer OTHER ==
[~2018-06-17] VITALS: Ht 157.5 cm; Wt 118.2 kg
[~2018-06-17 19:11] MED LIST changes: +BACT800T5 PO; +HYDR-3715 PO; +METR-265 PO; +OMEP10CASR PO; +PRED20TA PO; +PRENMIS3 PO; +VALA1TAB2 PO
[2018-06-17] MEDS: ASPIRIN 325 MG TAB PO ONE (20:04)
[2018-06-17 20:06] LABS: BASO % 0.4 % (0.0-1.0); EOS % 0.6 % (0.0-3.0); HEMATOCRIT 34.4 % (36.0-47.0); HEMOGLOBIN 10.3 g/dl (12.0-15.5); LYMPH # 1.6 10^3/uL (1.5-4.5); LYMPH % 30.1 % (24.0-44.0); MEAN CORPUSCULAR HGB CONC 29.9 g/dl (32.0-36.5); MONO # 0.3 10^3/uL (0.0-0.8); MONO % 5.2 % (0.0-5.0); NEUTROPHILS # 3.4 10^3/uL (1.8-7.7); NEUTROPHILS % 63.3 % (36.0-66.0); PLATELET COUNT, AUTOMATED 337 10^3/uL (150-450); WHITE BLOOD COUNT 5.4 10^3/uL (4.0-10.0)
[2018-06-17 20:10] LABS: PARTIAL THROMBOPLASTIN TIME 29.2 SECONDS (25.4-37.6); PROTHROMBIN TIME 13.3 SECONDS (12.1-14.4)
[2018-06-17 20:18] LABS: BLOOD UREA NITROGEN 15 MG/DL (7-18); CALCIUM LEVEL 8.6 MG/DL (8.5-10.1); CARBON DIOXIDE LEVEL 26 MEQ/L (21-32); CHLORIDE LEVEL 106 MEQ/L (98-107); CPK CREATINE PHOSPHOKINASE 139 U/L (26-192); CREATININE FOR GFR 0.83 MG/DL (0.55-1.30); GLOMERULAR FILTRATION RATE > 60.0 (>60); GLUCOSE, FASTING 114 MG/DL (70-100); MB/CK RELATIVE INDEX 1.08 (< OR =4); POTASSIUM SERUM 4.3 MEQ/L (3.5-5.1); SODIUM LEVEL 139 MEQ/L (136-145); TROPONIN I < 0.02 NG/ML (< 0.10)
[2018-06-17] MEDS ORDERED: ISOVUE-370 76% 125ML VIAL (Q9967 PER ML) As Ordered ONE (20:25)
--- NOTE | 2018-06-17 21:40 | REP ---
Clinical: Acute chest pain. Technique: Axial contrast enhanced images from the thoracic inlet to the upper abdomen using 100 ml Isovue 370 intravenous contrast material with coronal and sagittal re-formations. Findings: Satisfactory enhancement of the pulmonary vasculature is achieved and no filling defects are identified to suggest pulmonary embolus. Lung moctezuma demonstrate mild bibasilar atelectasis. No effusion. No pneumothorax. No adenopathy. Thoracic aorta is normal caliber without aneurysm or dissection. Heart and pericardium are normal. Impression: No evidence for pulmonary embolus. Mild bibasilar atelectasis. Electronically Signed by Nakul Chapin MD 06/17/2018 09:32 P
[2018-06-17] MEDS: CORTISPORIN OTIC SOLN 10 ML BTL AS ONE (22:28)
[2018-06-18 00:01] LABS: CPK CREATINE PHOSPHOKINASE 166 U/L (26-192); MB/CK RELATIVE INDEX 0.66 (< OR =4); TROPONIN I < 0.02 NG/ML (< 0.10)
[2018-06-18 00:36] VITALS: BP 136/71
--- NOTE | 2018-06-18 06:39 | ECGEPIP ---
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
--- NOTE | 2018-06-18 17:02 | ECGEPIP ---
Stationary ECG Study [facility] - ED Test Date: 2018-06-17 Pat Name: BEE HOLCOMB Department: Room: - Gender: F Lab Rn: : 1980 Requested By: MISAEL MONTANO Order Number: [id number] Reading MD: Raeann Lizama Measurements Intervals [place] Rate: 96 P: 51 [place]: 152 QRS: 34 QRSD: 92 T: 9 QT: 355 QTc: 450 Interpretive Statements SINUS RHYTHM DELAYED R WAVE PROGRESSION NONSPECIFIC ST T WAVE CHANGES CW 06/17/18 RATE DECREASED Electronically Signed On 06-18-2018 17:02:40 EDT by Raeann Lizama
== END 2018-06-18 00:55 | disposition home or self-care (01) ==
LOC: M ED 19:11
DX: H60.90 Unspecified otitis externa, unspecified ear (principal); R07.89 Other chest pain; R94.31 Abnormal electrocardiogram [ECG] [EKG]; E66.01 Morbid (severe) obesity due to excess calories
CPT/HCPCS: 36415; 71275; 80048; 82550; 82553; 85025; 85610; 85730; 93005; 99284; Q9967

== ENCOUNTER → 2018-07-19 | Outpatient (REF) | payer OTHER ==
[2018-07-19 12:13] LABS: BASO % 0.2 % (0.0-1.0); EOS # 0.1 10^3/uL (0.0-0.50); EOS % 1.5 % (0.0-3.0); HEMATOCRIT 35.1 % (36.0-47.0); HEMOGLOBIN 10.3 g/dl (12.0-15.5); LYMPH # 1.3 10^3/uL (1.5-4.5); LYMPH % 32.9 % (24.0-44.0); MEAN CORPUSCULAR HEMOGLOBIN 24.1 pg (27.0-33.0); MEAN CORPUSCULAR HGB CONC 29.3 g/dl (32.0-36.5); MONO # 0.3 10^3/uL (0.0-0.8); MONO % 7.7 % (0.0-5.0); NEUTROPHILS # 2.3 10^3/uL (1.8-7.7); NEUTROPHILS % 57.2 % (36.0-66.0); PLATELET COUNT, AUTOMATED 316 10^3/uL (150-450); RED BLOOD COUNT 4.28 10^6/uL (4.00-5.40)
[2018-07-19 12:46] LABS: HEMOGLOBIN A1c 7.4 %
[2018-07-19 13:04] LABS: ALBUMIN 3.5 GM/DL (3.2-5.2); ALT/SGPT 20 U/L (12-78); BILIRUBIN,TOTAL 0.2 MG/DL (0.2-1.0); BLOOD UREA NITROGEN 17 MG/DL (7-18); CALCIUM LEVEL 8.7 MG/DL (8.5-10.1); CARBON DIOXIDE LEVEL 28 MEQ/L (21-32); CHLORIDE LEVEL 106 MEQ/L (98-107); CHOLESTEROL LEVEL 161 MG/DL (<200); CHOLESTEROL RISK RATIO 4.128 (<5); CREATININE FOR GFR 0.91 MG/DL (0.55-1.30); FREE T4 1.08 NG/DL (0.76-1.46); GLOMERULAR FILTRATION RATE > 60.0 (>60); GLUCOSE, FASTING 149 MG/DL (70-100); HDL CHOLESTEROL 39 MG/DL (>40); LDL CHOLESTEROL 94 MG/DL (<100); NON-HDL-C 122 MG/DL; SODIUM LEVEL 140 MEQ/L (136-145); TOTAL 25(OH) VITAMIN D 9.4 NG/ML (30.0-100.0); TOTAL PROTEIN 7.7 GM/DL (6.4-8.2); TRIGLYCERIDES LEVEL 138 MG/DL (<150)
[2018-07-21 00:06] LABS: Lyme Disease IgG/IgM Antibodie <0.91 ISR (0.00-0.90); Lyme Disease IgM Ab Quantitati <0.80 index (0.00-0.79)
== END ==
LOC: M LAB REF 11:51
PROVIDERS: ATTEND Internal Medicine
DX: Z13.228 Encounter for screening for other metabolic disorders (principal); E66.9 Obesity, unspecified

== ENCOUNTER 2018-11-01 21:24 | Emergency (ER) | payer OTHER ==
[~2018-11-01] VITALS: Ht 157.5 cm; Wt 120.5 kg
[2018-11-01 21:25] VITALS: BP 156/100
== END 2018-11-02 00:39 | disposition left against medical advice (07) ==
LOC: M ED 21:24
DX: H92.02 Otalgia, left ear (principal); Z53.21 Procedure and treatment not carried out due to patient leaving prior to being seen by health care provider

== ENCOUNTER 2019-04-07 00:45 | Emergency (ER) | payer OTHER ==
[~2019-04-07] VITALS: Ht 157.5 cm; Wt 118.2 kg
[2019-04-07 00:45] VITALS: BP 171/96
[~2019-04-07 00:45] MED LIST changes: -VALA1TAB2 PO; +VALA1TAB64 PO
[2019-04-07] MEDS ORDERED: PERC5TAB12 PO (06:41)
[2019-04-07] MEDS ORDERED: IBUPROFEN 600 MG TAB PO ONE (06:45)
--- NOTE | 2019-04-14 16:01 | REP ---
Left 93 views: There is a spiral fracture in the fibular proximal shaft. There is no dislocation. Mineralization and joint spaces are normal. Electronically Signed by Fabricio Stewart MD 04/14/2019 03:52 P
--- NOTE | 2019-04-14 16:02 | REP ---
Left ankle three views: Mineralization and joint spaces are normal. There is no fracture or dislocation. There are no calcifications or foreign bodies. Impression: Negative left ankle. Electronically Signed by Fabricio Stewart MD 04/14/2019 03:54 P
--- NOTE | 2019-04-14 16:02 | REP ---
Left tibia-fibula four views: There is a nondisplaced spiral fracture in the proximal shaft of the fibula. Mineralization and joint spaces are normal. There are no calcifications or foreign bodies. Electronically Signed by Fabricio Stewart MD 04/14/2019 03:53 P
== END 2019-04-07 07:12 | disposition home or self-care (01) ==
LOC: M ED 00:45
DX: S82.832A Other fracture of upper and lower end of left fibula, initial encounter for closed fracture (principal); W18.40XA Slipping, tripping and stumbling without falling, unspecified, initial encounter; Y92.096 Garden or yard of other non-institutional residence as the place of occurrence of the external cause; Y93.9 Activity, unspecified; Y99.9 Unspecified external cause status

== ENCOUNTER 2019-04-18 09:23 | Day surgery (SDC) | payer OTHER ==
[~2019-04-18] VITALS: Ht 157.5 cm; Wt 117.9 kg
[~2019-04-18 09:23] MED LIST changes: +LIDOCAINE 1% MDV 20ML VIAL SQ PRN; +LIDOCAINE 2% INJ 100 MG/5 ML SDV (FOR ANES.) As Ordered ONE; +LR 1,000 ML IV ONE; +MIDAZOLAM INJ 2 MG/2 ML VIAL (J2250) As Ordered ONE; +ONDANSETRON 4MG/2ML VIAL (J2405) As Ordered ONE; +PERC5TAB12 PO; +ROCURONIUM BROMIDE 50 MG/5 ML VIAL As Ordered ONE; +ceFAZolin SOD 2 GM in IV 1 EA IV ONE; +dexameTHASONE 4 MG/ML 1ML VIAL (J1100) As Ordered ONE; +fentaNYL 250 MCG/5 ML INJECTION (J3010) As Ordered ONE; +propofoL 200 MG/20 ML VIAL As Ordered ONE; +propofoL 500 MG/50 ML VIAL As Ordered ONE
[2019-04-18] MEDS ORDERED: fentaNYL 100 MCG/2 ML INJECTION (J3010) As Ordered ONE ×2 (10:06→12:40)
[2019-04-18] MEDS ORDERED: MIDAZOLAM INJ 2 MG/2 ML VIAL (J2250) As Ordered ONE (10:06)
[2019-04-18] MEDS: fentaNYL 100 MCG/2 ML INJECTION (J3010) IV SCH ×2 (10:52→11:00)
[2019-04-18] MEDS: MIDAZOLAM INJ 2 MG/2 ML VIAL (J2250) IV SCH ×2 (10:52→10:55)
[2019-04-18 11:05] LABS: HCG, SERUM QUALITATIVE NEGATIVE (NEGATIVE)
[2019-04-18] MEDS ORDERED: SUGAMMADEX SODIUM 500 MG/5 ML VIAL (BRIDION) As Ordered ONE (12:06)
[2019-04-18] MEDS: MORPHINE 2 MG/ML 1ML VIAL (J2270) IV PRN ×4 (12:23→13:17)
[2019-04-18] MEDS ORDERED: PERCOCET 5MG/325MG TAB As Ordered ONE (12:40)
[2019-04-18] MEDS: fentaNYL 100 MCG/2 ML INJECTION (J3010) IV PRN ×4 (12:42→13:01)
[2019-04-18] MEDS ORDERED: PERCOCET 5MG/325MG TAB PO PRN (13:00)
[2019-04-18] MEDS ORDERED: LR 1,000 ML IV SCH (13:00)
[2019-04-18] MEDS ORDERED: MEPERIDINE INJ 25 MG/ML VIAL (J2175) IV PRN (13:00)
[2019-04-18] MEDS ORDERED: ONDANSETRON 4MG/2ML VIAL (J2405) IV PRN (13:00)
[2019-04-18] MEDS ORDERED: METOCLOPRAMIDE INJ 10MG/2ML VIAL (J2765) IV PRN (13:00)
[2019-04-18] MEDS ORDERED: oxyCODONE 5MG TAB PO PRN ×2 (13:00)
[2019-04-18] MEDS ORDERED: MORPHINE 10 MG/ML 1ML VIAL (J2270) As Ordered ONE (13:14)
--- NOTE | 2019-04-18 14:58 | REP ---
C-ARM VIEWS LEFT ANKLE: Three C-arm views of the left ankle performed. Metallic plate is seen along the distal fibula and two transverse metallic screws bridge the distal tibia and fibula. Osseous structures are well aligned. Fluoroscopy time 1 minute and 25 seconds. Electronically Signed by Fabricio Correa MD 04/20/2019 11:47 A
[2019-04-18 17:05] VITALS: BP 143/89
--- NOTE | 2019-04-19 00:47 | RO ---
DATE OF PROCEDURE: 04/18/2019 PREOPERATIVE DIAGNOSIS: Left Maisonneuve fracture. POSTOPERATIVE DIAGNOSIS: Left Maisonneuve fracture. PROCEDURE: Open reduction, internal fixation of left syndesmosis. SURGEON: Raman Hargrove MD TRAIN GATE ATTENDANT: Girma Monroy PA-C, who was essential for retraction given the patient's severe obesity, a body mass index (BMI) of 43. ANESTHESIA: General. INDICATIONS: 38-year-old female that suffered a left Maisonneuve proximal fibula/deltoid ligament injury after a slip and fall. We discussed how this was an unstable injury that requires operative fixation. Patient expressed understanding and agreement of the risks including, but not limited to, infection, damage to surrounding structures, incomplete relief, and need for further surgery, and patient wished to proceed. PREOPERATIVE ANTIBIOTICS: 2 grams of Ancef. COMPLICATIONS: None. TOURNIQUET TIME: Approximately 25 minutes. BLOOD LOSS: Minimal. OPERATIVE DESCRIPTION: Patient was brought back to the operating room (OR) in supine position and underwent general anesthesia. The left leg was prepped and draped in the usual fashion. We had a time-out confirming site, side, and surgery. Once in agreement, we elevated the tourniquet up to 300 mmHg. We then made a longitudinal incision along the distal fibula, sharply dissected through the subcutaneous tissue, careful to monitor for superficial peroneal nerve, and I dissected down to bone. We utilized a four-hole one-third tubular plate and used a lobster claw to clamp it down to the distal fibula. We confirmed placement on AP films. Once we were happy with the location of the syndesmotic screws, we used a 2.5 drill to drill across both cortices of the fibula and tibia. First one measured to be a 50, and the second one measured to be a 40. These were confirmed on AP and lateral films. We then stressed the ankle and demonstrated adequate negative stress test without medial widening or talar tilt. This was confirmed on AP and lateral films. The wounds were then irrigated thoroughly. Closed the periosteal sheath with #2-0 Vicryl, subcutaneous tissue with #2-0 Vicryl, and the skin with samuel. Placed a dressing of Adaptic gauze, Webril, and placed in a posterior slab splint. The tourniquet was let down. Patient was then awakened and taken to postanesthesia care unit (PACU) in stable condition. POSTOPERATIVE PLAN: The patient will work on pain control and elevation along with deep venous thrombosis (DVT) prophylaxis of 325 mg of aspirin twice a day. We will see her in the office in 2 weeks, at which point we will remove the samuel and place her into a short leg cast that will be in place for approximately 4 weeks. After 6 weeks postoperative, we will start weightbearing as tolerated.
--- NOTE | 2019-04-21 00:45 | ECGEPIP ---
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
== END 2019-04-18 17:30 | disposition home or self-care (01) ==
LOC: M SDC 09:23
PROVIDERS: ATTEND Orthopaedic Surgery Hand Surgery
DX: S82.862A Displaced Maisonneuve's fracture of left leg, initial encounter for closed fracture (principal); W19.XXXA Unspecified fall, initial encounter; Y92.89 Other specified places as the place of occurrence of the external cause; Y93.9 Activity, unspecified; Y99.9 Unspecified external cause status; G47.30 Sleep apnea, unspecified; J44.9 Chronic obstructive pulmonary disease, unspecified; E66.01 Morbid (severe) obesity due to excess calories
CPT/HCPCS: 27829; 36415; 76000; 81025; 84703; 93005; C1713; J0690; J1100; J2250; J2270; J2405; J3010

== ENCOUNTER 2019-09-19 09:24 | Emergency (ER) | payer OTHER ==
[~2019-09-19] VITALS: Ht 157.5 cm; Wt 128.8 kg
[~2019-09-19 09:24] MED LIST changes: -LIDOCAINE 1% MDV 20ML VIAL SQ PRN; -LIDOCAINE 2% INJ 100 MG/5 ML SDV (FOR ANES.) As Ordered ONE; -LR 1,000 ML IV ONE; -MIDAZOLAM INJ 2 MG/2 ML VIAL (J2250) As Ordered ONE; -ONDANSETRON 4MG/2ML VIAL (J2405) As Ordered ONE; -ROCURONIUM BROMIDE 50 MG/5 ML VIAL As Ordered ONE; +VALA1TAB5 PO; -VALA1TAB64 PO; -ceFAZolin SOD 2 GM in IV 1 EA IV ONE; -dexameTHASONE 4 MG/ML 1ML VIAL (J1100) As Ordered ONE; -fentaNYL 250 MCG/5 ML INJECTION (J3010) As Ordered ONE; -propofoL 200 MG/20 ML VIAL As Ordered ONE; -propofoL 500 MG/50 ML VIAL As Ordered ONE
[2019-09-19 09:55] LABS: BASO % 0.2 % (0.0-1.0); EOS # 0.1 10^3/uL (0.0-0.5); EOS % 1.3 % (0.0-3.0); HEMATOCRIT 36.8 % (36.0-47.0); HEMOGLOBIN 10.9 g/dl (12.0-15.5); LYMPH # 1.5 10^3/uL (1.5-5.0); LYMPH % 31.3 % (24.0-44.0); MEAN CORPUSCULAR HEMOGLOBIN 23.5 pg (27.0-33.0); MEAN CORPUSCULAR HGB CONC 29.6 g/dl (32.0-36.5); MEAN CORPUSCULAR VOLUME 79.3 fl (80.0-96.0); MONO # 0.3 10^3/uL (0.0-0.8); NEUTROPHILS # 2.8 10^3/uL (1.5-8.5); PLATELET COUNT, AUTOMATED 305 10^3/uL (150-450); RED BLOOD COUNT 4.64 10^6/uL (4.00-5.40); WHITE BLOOD COUNT 4.7 10^3/uL (4.0-10.0)
[2019-09-19 10:01] LABS: APPEARANCE, URINE MANUAL CLOUDY (CLEAR); BILIRUBIN, URINE MANUAL NEGATIVE (NEGATIVE); BLOOD URINE MANUAL POSITIVE (NEGATIVE); COLOR, URINE MANUAL RED (YELLOW); GLUCOSE, URINE (UA) MANUAL 4+(1000 MG/DL) mg/dL (NEGATIVE); KETONE, URINE MANUAL OBSCURED mg/dL (NEGATIVE); LEUKOCYTE ESTERASE, URINE MAN POSITIVE (NEGATIVE); NITRITE, URINE MANUAL NEGATIVE (NEGATIVE); PROTEIN, URINE MANUAL 1+ mg/dL (NEGATIVE); SPECIFIC GRAVITY,URINE MANUAL 1.028 (1.002-1.035); UROBILINOGEN, URINE MANUAL NORMAL (NORMAL)
[2019-09-19 10:05] LABS: BACTERIA, URINE SMALL AMOUNT; HYALINE CAST, URINE NONE SEEN /lpf (0-1); RBC, URINE TNTC /hpf (0-3); SQUAMOUS EPITHELIAL CELL URINE LARGE AMOUNT /hpf (SMALL AMT)
[2019-09-19 10:35] LABS: BLOOD UREA NITROGEN 14 MG/DL (7-18); CALCIUM LEVEL 8.8 MG/DL (8.5-10.1); CARBON DIOXIDE LEVEL 25 MEQ/L (21-32); CHLORIDE LEVEL 102 MEQ/L (98-107); CREATININE FOR GFR 0.97 MG/DL (0.55-1.30); GLOMERULAR FILTRATION RATE > 60.0 (>58); GLUCOSE, FASTING 288 MG/DL (70-100); HCG, SERUM QUANTITATIVE < 1.0 MIU/ML; POTASSIUM SERUM 3.9 MEQ/L (3.5-5.1); SODIUM LEVEL 135 MEQ/L (136-145)
--- NOTE | 2019-09-19 12:44 | REP ---
PELVIC SONOGRAPHY: HISTORY: Vaginal bleeding. FINDINGS: Transabdominal and transvaginal scanning are included. Uterus is enlarged measuring 12.7 x 4.9 x 5.8 cm. Endometrial echo is 0.6 cm thick. No free fluid is seen. No focal uterine mass is seen. Neither ovary could be identified on either transabdominal or transvaginal scanning. There is no evidence of adnexal mass, cyst, or free fluid. IMPRESSION: Enlarged uterus. Scan quality inhibited by patient body habitus and bowel gas. No adnexal abnormality appreciated, although neither ovary was directly visualized. Electronically Signed by Demetrius Bradshaw MD 09/19/2019 12:47 P
[2019-09-19 12:59] LABS: CHLAMYDIA DNA AMPLIFICATION NEGATIVE (NEGATIVE); GC DNA AMPLIFICATION NEGATIVE (NEGATIVE)
[2019-09-19 13:08] VITALS: BP 162/98
== END 2019-09-19 13:16 | disposition home or self-care (01) ==
LOC: M ED 09:24
DX: N93.8 Other specified abnormal uterine and vaginal bleeding (principal); R73.9 Hyperglycemia, unspecified; N85.2 Hypertrophy of uterus; Z87.59 Personal history of other complications of pregnancy, childbirth and the puerperium; Z87.448 Personal history of other diseases of urinary system; R51 Headache; E66.9 Obesity, unspecified

== ENCOUNTER → 2020-08-17 | Outpatient (REF) | payer OTHER, MEDICAID ==
[2020-08-17 17:41] LABS: APPEARANCE, URINE HAZY (CLEAR); BACTERIA, URINE AUTO NEGATIVE (NEGATIVE); BILIRUBIN, URINE AUTO NEGATIVE (NEGATIVE); BLOOD, URINE BLOOD NEGATIVE (NEGATIVE); COLOR, URINE YELLOW (YELLOW); GLUCOSE, URINE (UA) AUTO 3+ mg/dL (NEGATIVE); KETONE, URINE AUTO NEGATIVE (NEGATIVE); LEUKOCYTE ESTERASE, URINE AUTO 1+ (NEGATIVE); NITRITE, URINE AUTO NEGATIVE (NEGATIVE); PROTEIN, URINE AUTO NEGATIVE (NEGATIVE); RBC, URINE AUTO 3 /HPF (0-3); SPECIFIC GRAVITY URINE AUTO 1.035 (1.002-1.035); SQUAMOUS EPITHELIAL CELL UR AU 12 /HPF (0-6); UROBILINOGEN, URINE AUTO 0.2 mg/dL (0.0-2.0); WBC, URINE AUTO 4 /HPF (0-3)
[2020-08-17 18:22] LABS: MALB URINE SIEMENS 26.1 MG/L
== END ==
LOC: M LAB REF 16:25
PROVIDERS: ATTEND Physician Assistant
DX: L29.3 Anogenital pruritus, unspecified (principal); N89.8 Other specified noninflammatory disorders of vagina; E11.65 Type 2 diabetes mellitus with hyperglycemia

== ENCOUNTER → 2020-08-24 | Outpatient (REF) | payer OTHER, MEDICAID ==
[2020-08-24 15:56] LABS: HEMATOCRIT 38.1 % (36.0-47.0); HEMOGLOBIN 11.6 g/dl (12.0-15.5); MEAN CORPUSCULAR HEMOGLOBIN 24.3 pg (27.0-33.0); MEAN CORPUSCULAR HGB CONC 30.4 g/dl (32.0-36.5); MEAN CORPUSCULAR VOLUME 79.9 fl (80.0-96.0); PLATELET COUNT, AUTOMATED 276 10^3/uL (150-450); RED BLOOD COUNT 4.77 10^6/uL (4.00-5.40); WHITE BLOOD COUNT 4.5 10^3/uL (4.0-10.0)
[2020-08-24 16:17] LABS: HEMOGLOBIN A1c 12.2 %
[2020-08-24 16:28] LABS: ALBUMIN 3.3 GM/DL (3.2-5.2); ALT/SGPT 21 U/L (12-78); BILIRUBIN,TOTAL 0.2 MG/DL (0.2-1.0); BLOOD UREA NITROGEN 14 MG/DL (7-18); CALCIUM LEVEL 8.9 MG/DL (8.5-10.1); CARBON DIOXIDE LEVEL 25 MEQ/L (21-32); CHLORIDE LEVEL 100 MEQ/L (98-107); CHOLESTEROL LEVEL 160 MG/DL (<200); CHOLESTEROL RISK RATIO 3.902 (<5); CREATININE FOR GFR 0.87 MG/DL (0.55-1.30); GLOMERULAR FILTRATION RATE > 60.0 (>58); GLUCOSE, FASTING 362 MG/DL (70-100); HDL CHOLESTEROL 41 MG/DL (>40); LDL CHOLESTEROL 88 MG/DL (<100); NON-HDL-C 119 MG/DL; POTASSIUM SERUM 4.6 MEQ/L (3.5-5.1); SODIUM LEVEL 133 MEQ/L (136-145); TOTAL PROTEIN 7.3 GM/DL (6.4-8.2); TRIGLYCERIDES LEVEL 157 MG/DL (<150)
[2020-08-24 16:36] LABS: TOTAL 25(OH) VITAMIN D 11.1 NG/ML (30.0-100.0)
== END ==
LOC: M LAB REF 15:32
PROVIDERS: ATTEND Physician Assistant
DX: E55.9 Vitamin D deficiency, unspecified (principal); E11.65 Type 2 diabetes mellitus with hyperglycemia

== ENCOUNTER 2021-01-18 13:49 | Emergency (ER) | payer OTHER, MEDICAID ==
[~2021-01-18] VITALS: Ht 157.5 cm; Wt 106.8 kg
--- OUTSIDE RECORDS SUMMARY | 2021-01-18 13:57 | CCD ---
Author Organization Unknown Address [address] [place] [id number] Phone [phone] Care Team Providers Care Audio/Visual Manager Name Role Phone Kelvin Talavera Unavailable Unavailable Allergies Code Code System Name Reaction Severity Status Onset NKDA Medications Name Status Start Date Stop Date atorvastatin 10 mg tablet Active Not av ailable cholecalciferol (vitamin D3) 1,250 mcg ( 50,000 unit) capsule Take 1 capsule every week by oral route. Active Not available cholecalciferol (vitamin D3) 50 mcg (2,0 00 unit) capsule TAKE 1 CAPSULE BY MOUTH ONCE DAILY Active Not available fluconazole 150 mg tablet TAKE ONE TABLET BY MOUTH EVERY 72 HOURS Active Not available ergocalciferol (vitamin D2) 1,250 mcg (50,000 unit) capsule Acti ve Not available metformin 1,000 mg tablet Take 1 tablet twice a day by oral route. Active 10/18/2020 Not available nystatin 100,000 unit/gram topical cream APPLY TO AFFECTED AREA S TWO TIMES A DAY Active Not available OneTouch Delica Plus Lancet 33 gauge ONCE DAILY AND NEEDED MAXIMUM DAILY DOSE 4 Active Not available OneTouch Verio Reflect Meter USE DIRECTED ONCE DAILY AND NEEDED DIRECTED Active Not available OneTouch Verio test strips ONCE DAILY AND NEEDED MAXIMUM DAILY DOSE 4 Active Not available Trulicity 0.75 mg/0.5 mL subcutaneous pe n injector Inject 0.5 mL every week by subcutaneous route for 28 days. Unknown Not available Trulicity 1.5 mg/0.5 mL subcutaneous pen injector INJECT 0.5ML EVERY WEEK BY SUBCUTANEOUS ROUTE FOR 28 DAYS Active Not available vitamin d3 50 mcg (2000 ut) caps Active Not available Problems Name Status Onset Date Source Dental Caries on Smooth Surface Penetrating into Pulp Active 01/05/2017 History Trigeminal Neuralgia Active 05/05/2017 History Elevated Blood-pressure Reading without Diagnosis of Hyperte nsion Active 05/05/2017 History Severe Obesity Active 06/21/2018 History Endocrine/metabolic Screening Unknown 06/21/2018 Hi story Impacted Cerumen in Left Ear Unknown 06/21/2018 His tory Type II Diabetes Mellitus Uncontrolled Active 9 History Vitamin D Deficiency Active 07/27/2018 History Low Back Pain Active 07/27/2018 History Evaluation Finding Unknown 07/27/2018 History Body Mass Index 30+ - Obesity Active 10/07/2019 Hi story Counseling Active 10/07/[address] Concept Unknown 10/07/2019 History Procedures Date Name Performed by 11/28/2020 MAMMO, Screening, Bilateral [facility] [address] [place] [address] ( (Work Place) Notes: section x3 Results Lab Results Date Name Specimen Result Interpretation Description Value Range Status Address 11/28/2020 Pap, IG + HPV mRNA E6/E7 + Reflex HPV (16+18+45) Normal Clinical Information: Final [facility]: [address] , [place] Normal Lmp: Final [facility] Diag nostics [facility]: [address] [facility] Normal Prev. Pap: Final [facility] [address] [facility] [place] [facility] Prev. BX: Final [facility]: [address] [facility] Normal Source: Final [facility]: [address] [facility] Normal Statement of Adequacy: Final [facility] [address] [facility] Interpretation/result: Final [facility]: [address] [place], [place] Normal Comment: Final [facility]: [address] [facility] Normal Software Applications Architect: Tiffany miller [facility]: [address] [facility] Comment Final [facility]: [address] [facility] Normal Hpv Mrna E6/E7 not detected not dete cted Final [facility]: [address] [facility] 11/[facility]/2020 CT + NG RNA, PCR, Unspecified Specimen Normal Chlamydia Trachomatis RNA, Tma, Urogenital not detected not detected Final [facility] [address] [facility] Normal Neisseria Gonorrhoeae RNA, Tma, Urogenital not detected not detected Final [facility] [address] [facility] Comment Final [facility] [address] [facility] 11/28/2020 Trichomonas Vaginalis RNA, Pap Vial Normal Trichomonas Vaginalis, Ql Tma, Pap Vial not detected not detected Final [facility]: [address], [place] 10/17/2020 Visual Acuity* R Eye Corrected 20/50 [facility]: [address] [place] L Eye Corrected 20/70 [facility]: [address] [facility] [address] [place] R Eye Uncorrected 20/100 [facility]: [address], [place] L Eye Uncorrected 20/100 [facility]: [address] [facility] [address] [place] 08/24/2020 Cbc Blood venous Normal White Blood Count 4.5 10 4.0-10.0 10 [facility]: [address] [place] [address] Blood venous Normal Red Blood Count 4.77 10 4.00- 5.40 10 [facility]: [address] [place] [address] Blood venous Low Hemoglobin 11.6 g/dL 12.0-15. 5 g/dL [facility]: [address] [place] [address] Blood venous Normal Hematocrit 38.1 % 36.0-47.0 % [facility]: [address] [place] [address] Blood venous Low Mean Corpuscular Volume 79.9 fL 80.0-96.0 fL [facility]: [address] [place] [address] Blood venous Low Mean Corpuscular Hemoglob in 24.3 pg 27.0-33.0 pg [facility]: [address] [place] [address] Blood venous Low Mean Corpuscular HGB Conc 30.4 g/dL 32.0-36.5 g/dL [facility]: [address] [place] [address] Blood venous High Red Cell Distribution Width 1 6.2 % 11.5-14.5 % [facility]: [address] [place] [address] Blood venous Normal Platelet Count, Automated 276 10 150-450 10 [facility]: [address] [place] [address] Blood venous Normal Nucleated Red Blood Cell % 0. 0 % 0-0 % [facility]: [address] [place] [address] 08/24/2020 HbA1C (Hemoglobin a1C), Blood Normal Hemogl obin a1C 12.2 % [facility]: [address] [place] [address] High Estimated Average Glucose 303 mg/dL 60-110 mg/dL [facility]: [address] [place] [address] 08/24/2020 CMP, Serum or Plasma Blood venous High Glu cose, Fasting 362 mg/dL 70-100 mg/dL [facility] nter: [address] [place] [address] Blood venous Normal Blood Urea Nitrogen 14 mg/dL 7-18 mg/dL [facility]: [address] [place] [address] Blood venous Normal Creatinine for GFR 0.87 mg/dL 0.55-1.30 mg/dL [facility]: [address] [place] [address] Blood venous Normal Glomerular Filtration Rate > 60.0 >58 [facility]: [address] [place] [address] Blood venous Low Sodium Level 133 mEq/L 136-14 5 mEq/L [facility]: [address] [place] [address] Blood venous Normal Potassium Serum 4.6 mEq/L 3.5 -5.1 mEq/L [facility]: [address] [place] [address] Blood venous Normal Chloride Level 100 mEq/L 98-1 07 mEq/L [facility]: [address] [place] [address] Blood venous Normal Carbon Dioxide Level 25 mEq/L 21-32 mEq/L [facility]: [address] [place] [address] Blood venous Normal Anion Gap 8 mEq/L 8-16 mEq/L [facility]: [address] [place] [address] Blood venous Normal Calcium Level 8.9 mg/dL 8.5-1 0.1 mg/dL [facility]: 0 [facility] Blood venous Normal AST/SGOT 15 U/L 7-37 U/L Tiffany paul [facility]: [address] [place] [address] Blood venous Normal ALT/SGPT 21 U/L 12-78 U/L [facility]: [address] [place] [address] Blood venous Normal Alkaline Phosphatase 87 U/L 4 5-117 U/L [facility]: [address] [place] [address] Blood venous Normal Bilirubin,total 0.2 mg/dL 0.2 -1.0 mg/dL [facility]: [address] [place] [address] Blood venous Normal Total Protein 7.3 gm/dL 6.4-8 .2 gm/dL [facility]: [address] [place] [address] Blood venous Normal Albumin 3.3 gm/dL 3.2-5.2 gm/ dL [facility]: [address] [place] [address] Blood venous Low Albumin/globulin Ratio 0.8 1.2-2.2 [facility]: [address] [place] [address] 08/24/2020 Lipid Panel, Blood Blood venous High Trigl ycerides Level 157 mg/dL <150 mg/dL [facility] nter: [address] [place] [address] Blood venous Normal Cholesterol Level 160 mg/dL < 200 mg/dL [facility]: [address] [place] [address] Blood venous Normal HDL Cholesterol 41 mg/dL >40 mg/dL [facility]: [address] [place] [address] Blood venous Normal LDL Cholesterol 88 mg/dL <100 mg/dL [facility]: [address] [place] [address] Blood venous Normal Non-hdl-c 119 mg/dL Fi [facility]: [address] [place] [address] Blood venous Normal Cholesterol Risk Ratio 3.902 <5 [facility]: [address] [place] [address] 08/24/2020 Vitamin D, 25-Hydroxy, Total, Serum Blood venous Low Total 25(Oh) Vitamin D 11.1 NG/mL 30.0-100.0 NG/mL [facility]: [address] [place] [address] 08/22/2020 Test, Urine Urine Hcg negative [facility]: [address] [facility] [address], [place] 08/17/2020 Urinalysis, Dipstick, Auto Urine clean catch Normal Appearance, Urine hazy clear [facility] Center: [address] [place] [address] Urine clean catch Normal Color, Urine yellow yello w [facility]: [address] [facility] Urine clean catch Normal pH,urine 5.0 units 5.0-9. 0 units [facility]: [address] [facility] Urine clean catch Normal Specific Kimberly Urin e Auto 1.035 1.002-1.035 [facility]: [address] [facility] Urine clean catch Normal Protein, Urine Auto negative mg/dL negative mg/dL [facility]: [address] [facility] Urine clean catch High Glucose, Urine (UA) A uto 3+ mg/dL negative mg/dL [facility]: [address] [facility] Urine clean catch Normal Ketone, Urine Auto n egative mg/dL negative mg/dL [facility]: [address] [facility] Urine clean catch Normal Urobilinogen, Urine A uto 0.2 mg/dL 0.0-2.0 mg/dL [facility]: [address] [facility] Urine clean catch Normal Bilirubin, Urine Auto neg ative negative [facility]: [address] [facility] Urine clean catch Normal Nitrite, Urine Auto negat rg negative [facility]: [address] [facility] Urine clean catch High Leukocyte Esterase, Urine Auto 1+ negative [facility]: [address] [facility] Urine clean catch Normal Blood, Urine Blood negati ve negative [facility]: [address] [facility] Urine clean catch High WBC, Urine Auto 4 /hpf 0- 3 /hpf [facility]: [address] [facility] Urine clean catch Normal RBC, Urine Auto 3 /hpf 0- 3 /hpf [facility]: [address] [facility] Urine clean catch Normal Bacteria, Urine Auto nega tive negative [facility]: [address] [facility] Urine clean catch Normal Squamous Epithelial C ell Ur AU 12 /hpf 0-6 /hpf [facility]: [address] [facility] Urine clean catch Normal Hyaline Cast, Urine Auto 0 /lpf 0-1 /lpf [facility]: [address] [facility] 08/17/2020 Microalbumin, Urine Urine Normal Creatinine, Urin e 113.0 mg/dL Final [facility]: [address] [facility] Urine Normal Malb Urine Siemens 26.1 mg/L Final [facility]: [address] [facility] Urine Normal Angelo/creat Ratio 23.0 mcg/mg 0.0-30.0 mcg/mg Final [facility]: [address] [facility] 08/17/2020 Trichomonas Vaginalis Amp Normal Tr ichomonas Vaginalis (Amp) not detected negative [facility] nter: [address] [place] [address] 08/17/2020 Culture, Urine URINE,CLEAN CATCH No observation recorded. [facility]: [address] [place] [address] 08/17/2020 Chlamydia & GC DNA Probes Normal Chlamydia DNA Probe negative negative [facility]: [address] [facility] Normal GC DNA Probe negative negative Final [facility]: [address] [facility] Past Encounters 11/28/2020 Adult Health Examination; Routine Gynecologic Examination Done; Screening for Malignant Neoplasm of Breast; Screening Mammography; Candidiasis of Skin; Type II Diabetes Mellitus Uncontrolled; Vitamin D Deficiency; Elevated Blood-pressure Reading without Diagnosis of Hypertension Kelvin Talavera RPA-C: [address] [id number], Ph. 10/17/2020 Type II Diabetes Mellitus Uncontrolled; Vitamin D Deficiency; Blurring of Visual Image; Patient Informed - Test Result; Severe Obesity; Elevated Blood-pressure Reading without Diagnosis of Hypertension Kelvin Talavera RPA-C: [address] [facility] [address] [address], Ph. 08/24/2020 Vitamin D Deficiency; Type II Diabetes Mellitus Uncontrolled Kelvin Talavera RPA-C: [address] [facility] [address] [address], Ph. 08/17/2020 Pruritus of Vagina; Vaginal Discharge; Candidiasis of Vagina; Type II Diabetes Mellitus Uncontrolled; Vitamin D Deficiency Kelvin Talavera, RPA-C: [address] [facility], [facility] [address], [place] [address], Ph. Social History Tobacco Smoking Status Never Smoker Vaccine List Vaccine Type SARS-COV-2 (COVID-19) vaccine, UNSPECIFI ED 06/30/2020 07/25/2020 Plan of Care Reminders Provider Appointments None recorded. Lab None recorded. Referral None recorded. Procedures None recorded. Surgeries None recorded. Imaging None recorded. Vitals 11/28/2020 11:20AM ANNUAL WITH STOCK CLIPPER EXAM Height Weight BMI Blood Pressure 62 in 274 lbs 4 oz 50.2 kg/m2 (1) 148/94 mm[ Hg] (2) 158/94 mm[Hg] 10/17/2020 08:50AM ESTABLISHED [id number] Height Weight BMI Blood Pressure 62 in 279 lbs 16 oz 51.2 kg/m2 (1) 139/95 mm [Hg] (2) 144/94 mm[Hg] 08/17/2020 03:10PM ESTABLISHED [id number] Height Weight BMI Blood Pressure 62 in 268 lbs 8 oz 49.1 kg/m2 (1) 157/79 mm[ Hg] (2) 143/93 mm[Hg] 10/24/2019 Height Weight BMI Blood Pressure 62 in 281 lbs 4 oz 51.63 kg/m2 145/90 mm[Hg] 10/07/2019 Height Weight BMI Blood Pressure 62 in 286 lbs 2.08 oz 52.52 kg/m2 160/84 mm[H g] 09/09/2018 Blood Pressure 142/89 mm[Hg] 07/27/2018 Height Weight BMI Blood Pressure 62 in 288 lbs 6.08 oz 52.94 kg/m2 143/97 mm[H g] 06/21/2018 Height Weight BMI Blood Pressure 62 in 291 lbs 53.42 kg/m2 147/93 mm[Hg]
--- OUTSIDE RECORDS SUMMARY | 2021-01-18 13:57 | CCD ---
Author Author [facility] Organization [facility] Address Unknown Phone Unavailable Care Team Providers Care Gift Shop Assistant Name Role Phone TALAVERA, KAELA KELVIN RPA-C Unavailable Unavailable TALAVERA, KAELA KELVIN RPA-C Unavailable Unavailable TALAVERA, KAELA KELVIN RPA-C Unavailable Unavailable TALAVERA, KAELA KELVIN RPA-C Unavailable Unavailable TALAVERA, KAELA KELVIN RPA-C Unavailable Unavailable TALAVERA, KAELA KELVIN RPA-C Unavailable Unavailable TALAVERA, KAELA KELVIN RPA-C Unavailable Unavailable TALAVERA, KAELA KELVIN RPA-C Unavailable Unavailable TALAVERA, KAELA KELVIN RPA-C Unavailable Unavailable TALAVERA, KAELA KELVIN RPA-C Unavailable Unavailable TALAVERA, KAELA KELVIN RPA-C Unavailable Unavailable TALAVERA, KAELA KELVIN RPA-C Unavailable Unavailable TALAVERA, KAELA KELVIN RPA-C Unavailable Unavailable TALAVERA, KAELA KELVIN RPA-C Unavailable Unavailable TALAVERA, KAELA KELVIN RPA-C Unavailable Unavailable TALAVERA, KEALA KELVIN RPA-C Unavailable Unavailable TALAVERA, KAELA KELVIN RPA-C Unavailable Unavailable TALAVERA, KAELA KELVIN RPA-C Unavailable Unavailable TALAVERA, KAELA KELVIN RPA-C Unavailable Unavailable TALAVERA, KAELA KELVIN RPA-C Unavailable Unavailable TALAVERA, KAELA KELVIN RPA-C Unavailable Unavailable TALAVERA, KAELA KELVIN RPA-C Unavailable Unavailable TALAVERA, KAELA KELVIN RPA-C Unavailable Unavailable TALAVERA, KAELA KELVIN RPA-C Unavailable Unavailable TALAVERA, KEALA KELVIN RPA-C Unavailable Unavailable TALAVERA, KAELA KELVIN RPA-C Unavailable Unavailable TALAVERA, KAELA KELVIN RPA-C Unavailable Unavailable TALAVERA, KAELA KELVIN RPA-C Unavailable Unavailable TALAVERA, KAELA KELVIN RPA-C Unavailable Unavailable TALAVERA, KAELA KELVIN RPA-C Unavailable Unavailable TALAVERA, KAELA KELVIN RPA-C Unavailable Unavailable TALAVERA, KAELA KELVIN RPA-C Unavailable Unavailable TALAVERA, KAELA KELVIN RPA-C Unavailable Unavailable TALAVERA, KAELA KELVIN RPA-C Unavailable Unavailable TALAVERA, KAELA KELVIN RPA-C Unavailable Unavailable TALAVERA, KAELA KELVIN RPA-C Unavailable Unavailable TALAVERA, KAELA KELVIN RPA-C Unavailable Unavailable TALAVERA, KAELA KELVIN RPA-C Unavailable Unavailable TALAVERA, KAELA KELVIN RPA-C Unavailable Unavailable TALAVERA, KAELA KELVIN RPA-C Unavailable Unavailable TALAVERA, KAELA KLEVIN RPA-C Unavailable Unavailable TALAVERA, KAELA KELVIN RPA-C Unavailable Unavailable TALAVERA, KAELA KELVIN RPA-C Unavailable Unavailable TALAVERA, KAELA KELVIN RPA-C Unavailable Unavailable TALAVERA, KAELA KELVIN RPA-C Unavailable Unavailable TALAVERA, KAELA KELVIN RPA-C Unavailable Unavailable TALAVERA, KAELA KELVIN RPA-C Unavailable Unavailable TALAVERA, KAELA KELVIN RPA-C Unavailable Unavailable TALAVERA, KAELA KELVIN RPA-C Unavailable Unavailable TALAVERA, KAELA KELVIN RPA-C Unavailable Unavailable TALAVERA, KAELA KELVIN RPA-C Unavailable Unavailable TALAVERA, KAELA KELVIN RPA-C Unavailable Unavailable TALAVERA, KAELA KELVIN RPA-C Unavailable Unavailable TALAVERA, KAELA KELVIN RPA-C Unavailable Unavailable TALAVERA, KAELA KELVIN RPA-C Unavailable Unavailable TALAVERA, KAELA KELVIN RPA-C Unavailable Unavailable TALAVERA, KAELA KELVIN RPA-C Unavailable Unavailable TALAVERA, KAELA KELVIN RPA-C Unavailable Unavailable TALAVERA, KAELA KELVIN RPA-C Unavailable Unavailable TALAVERA, KAELA KELVIN RPA-C Unavailable Unavailable TALAVERA, KAELA KELVIN RPA-C Unavailable Unavailable TALAVERA, KAELA KELVIN RPA-C Unavailable Unavailable TALAVERA, KAELA KELVIN RPA-C Unavailable Unavailable TALAVERA, KAELA KELVIN RPA-C Unavailable Unavailable TALAVERA, KAELA KELVIN RPA-C Unavailable Unavailable TALAVERA, KAELA KELVIN RPA-C Unavailable Unavailable TALAVERA, KAELA KELVIN RPA-C Unavailable Unavailable TALAVERA, KAELA KELVIN RPA-C Unavailable Unavailable TALAVERA, KAELA KELVIN RPA-C Unavailable Unavailable TALAVERA, KAELA KELVIN RPA-C Unavailable Unavailable TALAVERA, KAELA KELVIN RPA-C Unavailable Unavailable ATLAVERA, KAELA KELVIN RPA-C Unavailable Unavailable TALAVERA, KAELA KELVIN RPA-C Unavailable Unavailable TALAVERA, KAELA KELVIN RPA-C Unavailable Unavailable TALAVERA, KAELA KELVIN RPA-C Unavailable Unavailable TALAVERA, KAELA KELVIN RPA-C Unavailable Unavailable TALAVERA, KAELA KELVIN RPA-C Unavailable Unavailable TALAVERA, KAELA KELVIN RPA-C Unavailable Unavailable TALAVERA, KAELA KELVIN RPA-C Unavailable Unavailable TALAVERA, KAELA KELVIN RPA-C Unavailable Unavailable TALAVERA, KAELA KELVIN RPA-C Unavailable Unavailable TALAVERA, KAELA KELVIN RPA-C Unavailable Unavailable TALAVERA, KAELA KELVIN RPA-C Unavailable Unavailable TALAVERA, KAELA KELVIN RPA-C Unavailable Unavailable TALAVERA, KAELA KELVIN RPA-C Unavailable Unavailable TALAVERA, KAELA KELVIN RPA-C Unavailable Unavailable Re-disclosure Warning The records that you are about to access may contain information from federally-assisted alcohol or drug abuse programs. If such information is present, then the following federally mandated warning applies: This information has been disclosed to you from records protected by federal confidentiality rules (42 CFR part 2). The federal rules prohibit you from making any further disclosure of this information unless further disclosure is expressly permitted by the written consent of the person to whom it pertains or as otherwise permitted by 42 CFR part 2. A general authorization for the release of medical or other information is NOT sufficient for this purpose. The Federal rules restrict any use of the information to criminally investigate or prosecute any alcohol or drug abuse patient.The records that you are about to access may contain highly sensitive health information, the redisclosure of which is protected by Article 27-F of the [facility] Public Health law. If you continue you may have access to information: Regarding HIV / AIDS; Provided by facilities licensed or operated by the [facility] Office of Mental Health; or Provided by the [facility] Office for People With Developmental Disabilities. If such information is present, then the following [facility] mandated warning applies: This information has been disclosed to you from confidential records which are protected by state law. State law prohibits you from making any further disclosure of this information without the specific written consent of the person to whom it pertains, or as otherwise permitted by law. Any unauthorized further disclosure in violation of state law may result in a fine or [place] [facility] sentence or both. A general authorization for the release of medical or other information is NOT sufficient authorization for further disc losure. Encounters Encounter Providers Location Date Indications Data Source(s ) ERYN Zimmer: [address], [place] [address], Ph. Attender: KELVIN CERNA [facility] Medical 01/18/2021 12:00:00 AM EDT MALIK ([facility]) ERYN Zimmer: [address], [place] [address], Ph. Attender: KELVIN CERNA [facility] Medical 11/28/2020 12:00:00 AM EDT MALIK ([facility]) KATHI ZimmerC: [address], [place] [address], Ph. Attender: KELVIN CERNA [facility] Medical 11/28/2020 12:00:00 AM EDT MALIK ([facility]) KATHI ZimmerC: [address], [place] [address], Ph. Attender: KELVIN CERNA [facility] Medical 10/17/2020 12:00:00 AM EDT MALIK ([facility]) Kelvin Talavera, RPA-C: [address], [place] [address], Ph. Attender: KELVIN TALAVERA RPA-C [facility] Medical 10/17/2020 12:00:00 AM EDT MALIK ([facility]) Kelvin Talavera, RPA-C: [address], [place] [address], Ph. Attender: KELVIN TALAVERA RPA-C [facility] Medical 10/17/2020 12:00:00 AM EDT MALIK ([facility]) Kelvin Talavera, RPA-C: [address], [place] [address], Ph. Attender: KELVIN TALAVERA RPA-C [facility] Medical 08/24/2020 12:00:00 AM EDT MALIK ([facility]) Kelvin Talavera, RPA-C: [address], [place] [address], Ph. Attender: KELVIN TALAVERA RPA-C [facility] Medical 08/24/2020 12:00:00 AM EDT MALIK ([facility]) Kelvin Talavera, RPA-C: [address], [place] [address], Ph. Attender: KELVIN TALAVERA RPA-C [facility] Medical 08/24/2020 12:00:00 AM EDT MALIK ([facility]) Kelvin Talavera RPA-C: [address], [place] [address], Ph. Attender: KELVIN TALAVERA RPA-C [facility] Medical 08/24/2020 12:00:00 AM EDT MALIK ([facility]) Kelvin Talavera, RPA-C: [address], [place] [address], Ph. Attender: KELVIN TALAVERA RPA-C [facility] Medical 08/17/2020 12:00:00 AM EDT MALIK ([facility]) Kelvin Talavera, RPA-C: [address], [place] [address], Ph. Attender: KELVIN TALAVERA RPA-C [facility] Medical 08/17/2020 12:00:00 AM EDT MALIK ([facility]) Kelvin Talavera, RPA-C: [address], [place] [address], Ph. Attender: KELVIN TALAVERA RPA-C [facility] Medical 08/17/2020 12:00:00 AM EDT MALIK ([facility]) Kelvin Talavera RPA-C: [address], [place] [address], Ph. Attender: KELVIN TALAVERA RPA-C [facility] Medical 08/17/2020 12:00:00 AM EDT MALIK ([facility]) Kelvin Talavera, RPA-C: [address], [place] [address], Ph. Attender: KELVIN TALAVERA RPA-C [facility] Medical 08/17/2020 12:00:00 AM EDT MALIK ([facility]) Kelvin Talavera, RPA-C: [address] [facility] [address], [place] [address], Ph. Attender: KELVIN TALAVERA RPA-C [facility] Medical 03/06/2020 12:00:00 AM EST MALIK ([facility]) Outpatient Attender: KELVIN TALAVERA RPA-C [facility] 12/08/2019 01:10:[address] [facility] Outpatient Attender: KELVIN TALAVERA RPA-C [facility] 11/23/2019 08:18:[address] [facility] Outpatient Attender: KELVIN TALAVERA RPA-C [facility] 11/23/2019 08:18:[address] [facility] Outpatient Attender: KELVIN TALAVERA RPA-C [facility] 11/21/2019 02:21:[address] [facility] Immunizations Vaccine Date Status Description Data Source(s) SARS-COV-2 (COVID-19) vaccine, UNSPECIFIED 07/25/2020 12:00:00 A M EDT completed 07/25/2020 MALIK ([facility]) SARS-COV-2 (COVID-19) vaccine, UNSPECIFIED 07/25/2020 12:00:00 A M EDT completed 07/25/2020 MALIK ([facility]) SARS-COV-2 (COVID-19) vaccine, UNSPECIFIED 07/25/2020 12:00:00 A M EDT completed 07/25/2020 MALIK ([facility]) SARS-COV-2 (COVID-19) vaccine, UNSPECIFIED 07/25/2020 12:00:00 A M EDT completed 07/25/2020 MALIK ([facility]) SARS-COV-2 (COVID-19) vaccine, UNSPECIFIED 07/25/2020 12:00:00 A M EDT completed 07/25/2020 MALIK ([facility]) COVID-19 VACCINE Moderna 07/25/2020 12:00:00 AM EDT completed [facility] Vaccine Series Complete: YESThis Data wa s Submitted to [facility]. SARS-COV-2 (COVID-19) vaccine, UNSPECIFIED 06/30/2020 12:00:00 A M EDT completed 06/30/2020 [place] ([facility]) SARS-COV-2 (COVID-19) vaccine, UNSPECIFIED 06/30/2020 12:00:00 A M EDT completed 06/30/2020 MALIK ([facility]) SARS-COV-2 (COVID-19) vaccine, UNSPECIFIED 06/30/2020 12:00:00 A M EDT completed 06/30/2020 MALIK ([facility]) SARS-COV-2 (COVID-19) vaccine, UNSPECIFIED 06/30/2020 12:00:00 A M EDT completed 06/30/2020 [place] ([facility]) SARS-COV-2 (COVID-19) vaccine, UNSPECIFIED 06/30/2020 12:00:00 A M EDT completed 06/30/2020 [place] ([facility]) COVID-19 VACCINE Moderna 06/30/2020 12:00:00 AM EDT completed [facility] Vaccine Series Complete: NOThis Data was Submitted to [facility]. Medications Medication Brand Name Start Date Product Form Dose Route Admi nistrative Instructions Pharmacy Instructions Status Indications Reaction Description Data Source(s) amoxicillin 875mg- take 1 tablet by mouth every 12hrs for th e next 10 days 01/18/2021 12:00:00 AM EDT completed Zeusxat[facility] HUMMELMALIK ([facility]) 100,000 unit/gram 11/29/2020 12:00:00 AM EDT cream 30 APPLY TO AFFECTED AREA(S) TWO TIMES A DAY APPLY TO AFFECTED AREA(S) TWO TIMES A DAY SOLD: 11/29/2020 [facility] BLOOD-GLUCOSE METER 10/26/2020 12:00:00 AM EDT misc 1 USE DIRECTED ONCE DAILY AND NEEDED DIRECTED USE DIRECTED ONCE DAILY AND NEEDED DIRECTED SOLD: 10/31/2020 [facility] 33 gauge 10/25/2020 12:00:00 AM EDT misc 100 ONCE DAILY AND NEEDED MAXIMUM DAILY DOSE = 4 ONCE DAILY AND NEEDED MAXIMUM DAILY DOSE = 4 SOLD: 10/31/2020 [facility] BLOOD SUGAR DIAGNOSTIC 10/25/2020 12:00:00 AM EDT strip 100 ONCE DAILY AND NEEDED MAXIMUM DAILY DOSE = 4 ONCE DAILY AND NEEDED MAXIMUM DAILY D OSE = 4 SOLD: 10/31/2020 [facility] 1.5 mg/0.5 mL 10/19/2020 12:00:00 AM EDT pen injector 2 INJECT 0.5ML EVERY WEEK BY SUBCUTANEOUS ROUTE FOR 28 DAYS INJECT 0.5ML EVERY WEEK BY SUBCUTANEOUS ROUTE FOR 28 DAYS SOLD: 10/20/2020 [facility] 1.5 mg/0.5 mL 10/19/2020 12:00:00 AM EDT pen injector 2 INJECT 0.5ML EVERY WEEK BY SUBCUTANEOUS ROUTE FOR 28 DAYS INJECT 0.5ML EVERY WEEK BY SUBCUTANEOUS ROUTE FOR 28 DAYS SOLD: 01/09/2021 [facility] 1.5 mg/0.5 mL 10/19/2020 12:00:00 AM EDT pen injector 2 INJECT 0.5ML EVERY WEEK BY SUBCUTANEOUS ROUTE FOR 28 DAYS INJECT 0.5ML EVERY WEEK BY SUBCUTANEOUS ROUTE FOR 28 DAYS SOLD: 11/14/2020 [facility] 1.5 mg/0.5 mL 10/19/2020 12:00:00 AM EDT pen injector 2 INJECT 0.5ML EVERY WEEK BY SUBCUTANEOUS ROUTE FOR 28 DAYS INJECT 0.5ML EVERY WEEK BY SUBCUTANEOUS ROUTE FOR 28 DAYS SOLD: 12/15/2020 [facility] Metformin hydrochloride 1000 MG Oral Tab let metformin 1,000 mg tablet Take 1 tablet twice a day by oral route. metformin 1,000 mg tablet Take 1 tablet twice a day by oral route. 10/18/2020 12:00:00 AM EDT 1 completed metformin hydrochloride 1000 MG Oral Tablet MALIK ([facility]) Metformin hydrochloride 1000 MG Oral Tab let metformin 1,000 mg tablet Take 1 tablet twice a day by oral route. metformin 1,000 mg tablet Take 1 tablet twice a day by oral route. 10/18/2020 12:00:00 AM EDT 1 completed metformin hydrochloride 1000 MG Oral Tablet [place] ([facility]) 1,250 mcg (50,000 unit) 10/17/2020 12:00:00 AM EDT capsule 12 TAKE 1 CAPSULE BY MOUTH EVERY WEEK TAKE 1 CAPSULE BY MOUTH EVERY WEEK SOLD: 10/17/2020 [facility] atorvastatin 10 MG Oral Tablet ATORVASTATIN CALCIUM 10/17/2020 1 2:00:00 AM EDT tablet 30 TAKE ONE TABLET BY MOUTH EVERY D AY TAKE ONE TABLET BY MOUTH EVERY DAY SOLD: 10/17/2020 [facility] 1,000 mg 10/17/2020 12:00:00 AM EDT tablet 60 TAKE ONE TABLET BY MOUTH TWICE A DAY TAKE ONE TABLET BY MOUTH TWICE A DAY SOLD: 10/17/2020 [facility] 150 mg 08/17/2020 12:00:00 AM EDT tablet 2 TAKE ONE TABLET BY MOUTH EVERY 72 HOURS TAKE ONE TABLET BY MOUTH EVERY 72 HOURS SOLD: 08/17/2020 [facility] 50 mcg (2,000 unit) 11/19/2019 12:00:00 AM EDT capsule 30 TAKE 1 CAPSULE BY MOUTH ONCE DAILY TAKE 1 CAPSULE BY MOUTH ONCE DAILY SOLD: 11/21/2019 [facility] Metformin hydrochloride 1000 MG Oral Tablet 1,000 mg METFORM IN HCL 10/07/2019 12:00:00 AM EDT tablet 60 TAKE ONE TABLET BY MOUTH TWICE A DAY TAKE ONE TABLET BY MOUTH TWICE A DAY SOLD: 02/23/2020 [facility] 1,000 mg 10/07/2019 12:00:00 AM EDT tablet 60 TAKE ONE TABLET BY MOUTH TWICE A DAY TAKE ONE TABLET BY MOUTH TWICE A DAY SOLD: 09/18/2020 [facility] Fluconazole 150 MG Oral Tablet [Diflucan ] Diflucan 150 mg tablet Take 1 tablet every 72 hours by oral route. Diflucan 150 mg tablet Take 1 tablet becka ry 72 hours by oral route. 1 completed fluconazole 150 MG Oral Tablet [Diflucan] MALIK ([facility]) Insurance Providers Payer name Policy type / Coverage type Policy ID Covered democrat ID Covered democrat's relationship to cabrera Policy Cabrera Plan Information Medicaid S [id number] S [id number] D [facility] P [id number] S [id number] [facility] P [id number] S [id number] Medicaid S [id number] S [id number] [facility] Community Plan P [id number] S [id number] [facility] P [id number] S [id number] Medicaid S [id number] S [id number] [facility] UHC Community Plan P [id number] S [id number] Medicaid S UNAVAILABLE S UNAVAILA BLE MEDICAID -PHYSICIAN [id number] MEDICAID -O/P EMERGENCY ROOM [id number] SELF PAY ONLY [id number] SP [id number] [employer]HC COMMUNITY PLAN MCDO [id number] SP [id number] [place] [id number] SP [id number] SELF PAY ONLY [id number] SP [id number] UNHC COMMUNITY PLAN MCDHMO [id number] SP [id number] [place] [id number] SP [id number] [facility]) O [id number] S [id number] MEDICAID [id number] SP [id number] UN COMMUNITY PLAN MCDO [id number] SP [id number] Medicaid S [id number] S [id number] Managed Care - [facility] P [id number] S [id number] Problems, Conditions, and Diagnoses Code Display Name Description Problem Type Effective Dates Data Source(s) 222748190 SNOMED CT Concept SNOMED CT Concept Problem 10/06 12:00:00 AM EDT - 10/24/2020 12:00:00 AM EDT MALIK ([facility]) [id number] SNOMED CT Concept SNOMED CT Concept Problem 10/06 12:00:00 AM EDT - 10/24/2020 12:00:00 AM EDT MALIK ([facility]) [id number] Evaluation finding Evaluation Finding Problem 09/2018 12:00:00 AM EDT - 10/24/2020 12:00:00 AM EDT MALIK ([facility]) [id number] Evaluation finding Evaluation Finding Problem 09/2018 12:00:00 AM EDT - 10/24/2020 12:00:00 AM EDT MALIK ([facility]) [id number] Impacted cerumen in left ear Impacted Cerumen i n Left Ear Problem 06/21/2018 12:00:00 AM EDT - 10/24/2020 12:00:00 AM ED T MALIK ([facility]) [id number] Endocrine/metabolic screening Endocrine/metabolic Scre ening Problem 06/21/2018 12:00:00 AM EDT - 10/24/2020 12:00:00 AM EDT [place] ([facility]) [id number] Impacted cerumen in left ear Impacted Cerumen i n Left Ear Problem 06/21/2018 12:00:00 AM EDT - 10/24/2020 12:00:00 AM ED T [place] ([facility]) [id number] Endocrine/metabolic screening Endocrine/metabolic Scre ening Problem 06/21/2018 12:00:00 AM EDT - 10/24/2020 12:00:00 AM EDT [place] ([facility]) Surgeries/Procedures No Information Results ID Date Data Source [id number] 11/28/2020 12:17:00 PM EDT [facility]) Name Value Range Interpretation Code Description Data Nikia rce(s) Supporting Document(s) Trichomonas vaginalis rRNA [Presence] in Unspecified specimen by Probe and target amplification method not detected not detected Tric homonas Vaginalis, Ql Tma, Pap Vial [place] ([facility]) ID Date Data Source [id number] 11/28/2020 12:17:00 PM EDT [facility]) Name Value Range Interpretation Code Description Data Nikia rce(s) Supporting Document(s) Neisseria gonorrhoeae rRNA [Presence] in Unspecified specimen by Probe and target amplification method not detected not detected Neis seria Gonorrhoeae RNA, Tma, Urogenital [place] ([facility]) Chlamydia trachomatis rRNA [Presence] in Unspecified specimen by Probe and target amplification method not detected not detected Chla mydia Trachomatis RNA, Tma, Urogenital [place] ([facility]) comment Comment [place] ([facility]) ID Date Data Source [id number] 11/28/2020 12:17:00 PM EDT [place] ([facility]) Name Value Range Interpretation Code Description Data Nikia rce(s) Supporting Document(s) Hemoglobin A1c/Hemoglobin.total in Blood tnp Hemoglobin a1C [place] ([facility]) ID Date Data Source [id number] 11/28/2020 12:17:00 PM EDT [place] ([facility]) Name Value Range Interpretation Code Description Data Nikia rce(s) Supporting Document(s) Clinical information Clinical Inform ation: MALIK ([facility]) Date of previous biopsy Prev. BX: A THENA ([facility]) Last menstrual period start date Lmp : MALIK ([facility]) Date of previous PAP smear Prev. Pap : MALIK ([facility]) Statement of adequacy [Interpretation] o f Cervical or vaginal smear or scraping by Cyto stain Statement of Adequacy: DAVID DEL REAL ([facility]) Specimen source [Identifier] in Cervical or vaginal smear or scraping by Cyto stain Source: [place] ([facility]) Cytology study comment Cervical or vaginal smear or scraping Cyto s tain Comment: MALIK ([facility]) Audiology Director who read Cyto stain of Cervical or vaginal smear or scra ping Salesperson Stereo Equipment: MALIK ([facility]) Microscopic observation [Identifier] in Cervix by Cyto stain Interpretation/result: MALIK ([facility]) comment Comment MALIK ([facility]) Human papilloma virus E6+E7 mRNA [Presen ce] in Cervix by Probe and target amplification method not detected not detected Hpv Mrna E6/E7 GET Hurtado ([facility]) ID Date Data Source [id number] 11/28/2020 12:17:00 PM EDT [place] ([facility]) Name Value Range Interpretation Code Description Data Nikia rce(s) Supporting Document(s) Service comment Comment MALIK ([facility]) ID Date Data Source [id number] 11/28/2020 12:17:00 PM EDT [place] ([facility]) Name Value Range Interpretation Code Description Data Nikia rce(s) Supporting Document(s) Trichomonas vaginalis rRNA [Presence] in Unspecified specimen by Probe and target amplification method not detected not detected Tric homonas Vaginalis, Ql Tma, Pap Vial [place] ([facility]) ID Date Data Source [id number] 11/28/2020 12:17:00 PM EDT [facility]) Name Value Range Interpretation Code Description Data Nikia rce(s) Supporting Document(s) Chlamydia trachomatis rRNA [Presence] in Unspecified specimen by Probe and target amplification method not detected not detected Chla mydia Trachomatis RNA, Tma, Urogenital [place] ([facility]) Neisseria gonorrhoeae rRNA [Presence] in Unspecified specimen by Probe and target amplification method not detected not detected Neis seria Gonorrhoeae RNA, Tma, Urogenital [place] ([facility]) comment Comment [facility]) ID Date Data Source [id number] 11/28/2020 12:17:00 PM EDT [facility]) Name Value Range Interpretation Code Description Data Nikia rce(s) Supporting Document(s) Clinical information Clinical Inform ation: [place] ([facility]) Date of previous biopsy Prev. BX: A THENA ([facility]) Last menstrual period start date Lmp : [place] ([facility]) Date of previous PAP smear Prev. Pap : [place] ([facility]) Specimen source [Identifier] in Cervical or vaginal smear or scraping by Cyto stain Source: [place] ([facility]) Statement of adequacy [Interpretation] o f Cervical or vaginal smear or scraping by Cyto stain Statement of Adequacy: DAVID NA ([facility]) Microscopic observation [Identifier] in Cervix by Cyto stain Interpretation/result: [place] ([facility]) Cytology study comment Cervical or vaginal smear or scraping Cyto s tain Comment: [place] ([facility]) Audiology Director who read Cyto stain of Cervical or vaginal smear or scra ping Salesperson Stereo Equipment: [place] ([facility]) comment Comment [place] ([facility]) Human papilloma virus E6+E7 mRNA [Presen ce] in Cervix by Probe and target amplification method not detected not detected Hpv Mrna E6/E7 ATHEN A ([facility]) ID Date Data Source [id number] 10/17/2020 10:06:00 AM EDT MALIK ([facility]) Name Value Range Interpretation Code Description Data Nikia rce(s) Supporting Document(s) R Eye Corrected 20/50 R Eye Corrected ATHE NA ([facility]) L Eye Corrected 20/70 L Eye Corrected ATHE NA ([facility]) L Eye Uncorrected 20/100 L Eye Uncorrected MALIK ([facility]) R Eye Uncorrected 20/100 R Eye Uncorrected MALIK ([facility]) ID Date Data Source [id number] 10/17/2020 10:06:00 AM EDT MALIK ([facility]) Name Value Range Interpretation Code Description Data Nikia rce(s) Supporting Document(s) R Eye Corrected 20/50 R Eye Corrected ATHE NA ([facility]) R Eye Uncorrected 20/100 R Eye Uncorrected MALIK ([facility]) L Eye Corrected 20/70 L Eye Corrected ATHE NA ([facility]) L Eye Uncorrected 20/100 L Eye Uncorrected MALIK ([facility]) ID Date Data Source [id number] 08/24/2020 10:03:00 AM EDT MALIK ([facility]) Name Value Range Interpretation Code Description Data Nikia rce(s) Supporting Document(s) total 25(oh) vitamin D 11.1 NG/mL 30.0-100.0 Below low normal T otal 25(Oh) Vitamin D MALIK ([facility]) ID Date Data Source [id number] 08/24/2020 10:03:00 AM EDT MALIK ([facility]) Name Value Range Interpretation Code Description Data Nikia rce(s) Supporting Document(s) cholesterol level 160 mg/dL <200 Cholesterol Level MALIK ([facility]) triglycerides level 157 mg/dL <150 Above high normal Triglycer ides Level MALIK ([facility]) HDL cholesterol 41 mg/dL >40 HDL Cholesterol ATHE ([facility]) non-HDL-C 119 mg/dL Non-hdl-c MALIK ([facility]) cholesterol risk ratio <5 Cholesterol R isk Ratio MALIK ([facility]) Cholesterol in LDL [Mass/volume] in Serum or Plasma 88 mg/dL <1 00 LDL Cholesterol MALIK ([facility]) ID Date Data Source [id number] 08/24/2020 10:03:00 AM EDT MALIK ([facility]) Name Value Range Interpretation Code Description Data Nikia rce(s) Supporting Document(s) glucose, fasting 362 mg/dL 70-100 Above high normal Glucose, Fas ting MALIK ([facility]) glomerular filtration rate > 60.0 >58 Glomerula r Filtration Rate MALIK ([facility]) creatinine for GFR 0.87 mg/dL 0.55-1.30 Creatinine for GF R MALIK ([facility]) blood urea nitrogen 14 mg/dL 7-18 Blood Urea Nitro gen MALIK ([facility]) sodium level 133 mEq/L 136-145 Below low normal Sodium Level ATHE ([facility]) potassium serum 4.6 mEq/L 3.5-5.1 Potassium Serum ATHE ([facility]) chloride level 100 mEq/L 98-107 Chloride Level MALIK ([facility]) anion gap 8 mEq/L 8-16 Anion Gap MALIK ([facility]) calcium level 8.9 mg/dL 8.5-10.1 Calcium Level MALIK ( [facility]) carbon dioxide level 25 mEq/L 21-32 Carbon Dioxide Level MALIK ([facility]) AST/SGOT 15 U/L 7-37 AST/SGOT MALIK ([facility]) alkaline phosphatase 87 U/L 45-117 Alkaline Phosph atase MALIK ([facility]) bilirubin,total 0.2 mg/dL 0.2-1.0 Bilirubin,total ATHE ([facility]) ALT/SGPT 21 U/L 12-78 ALT/SGPT MALIK ([facility]) total protein 7.3 gm/dL 6.4-8.2 Total Protein MALIK ( [facility]) albumin 3.3 gm/dL 3.2-5.2 Albumin MALIK ([facility]) albumin/globulin ratio 1.2-2.2 Below low normal Albumin /globulin Ratio MALIK ([facility]) ID Date Data Source [id number] 08/24/2020 10:03:00 AM EDT MALIK ([facility]) Name Value Range Interpretation Code Description Data Nikia rce(s) Supporting Document(s) Hemoglobin A1c/Hemoglobin.total in Blood 12.2 % Hemoglobin a1C MALIK ([facility]) estimated average glucose 303 mg/dL 60-110 Above high norm al Estimated Average Glucose MALIK ([facility]) ID Date Data Source [id number] 08/24/2020 10:03:00 AM EDT MALIK ([facility]) Name Value Range Interpretation Code Description Data Nikia rce(s) Supporting Document(s) red blood count 4.77 10 4.00-5.40 Red Blood Count ATHE ([facility]) white blood count 4.5 10 4.0-10.0 White Blood Count MALIK ([facility]) hematocrit 38.1 % 36.0-47.0 Hematocrit MALIK ([facility]) hemoglobin 11.6 g/dL 12.0-15.5 Below low normal Hemoglobin MALIK ( [facility]) mean corpuscular HGB conc 30.4 g/dL 32.0-36.5 Below low dimple l Mean Corpuscular HGB Conc MALIK ([facility]) mean corpuscular volume 79.9 fL 80.0-96.0 Below low normal Mean Corpuscular Volume MALIK ([facility]) mean corpuscular hemoglobin 24.3 pg 27.0-33.0 Below low nor mal Mean Corpuscular Hemoglobin MALIK ([facility]) red cell distribution width 16.2 % 11.5-14.5 Above high no rmal Red Cell Distribution Width MLAIK ([facility]) nucleated red blood cell % 0.0 % 0-0 Nucleated Red Blood Cell % MALIK ([facility]) platelet count, automated 276 10 150-450 Platelet C ount, Automated MALIK ([facility]) ID Date Data Source [id number] 08/24/2020 10:03:00 AM EDT MALIK ([facility]) Name Value Range Interpretation Code Description Data Nikia rce(s) Supporting Document(s) total 25(oh) vitamin D 11.1 NG/mL 30.0-100.0 Below low normal T otal 25(Oh) Vitamin D [place] ([facility]) ID Date Data Source [id number] 08/24/2020 10:03:00 AM EDT MALIK ([facility]) Name Value Range Interpretation Code Description Data Nikia rce(s) Supporting Document(s) triglycerides level 157 mg/dL <150 Above high normal Triglycer ides Level MALIK ([facility]) cholesterol level 160 mg/dL <200 Cholesterol Level MALIK ([facility]) Cholesterol in LDL [Mass/volume] in Serum or Plasma 88 mg/dL <1 00 LDL Cholesterol MALIK ([facility]) HDL cholesterol 41 mg/dL >40 HDL Cholesterol ATHE ([facility]) non-HDL-C 119 mg/dL Non-hdl-c MALIK ([facility]) cholesterol risk ratio <5 Cholesterol R isk Ratio MALIK ([facility]) ID Date Data Source [id number] 08/24/2020 10:03:00 AM EDT [facility]) Name Value Range Interpretation Code Description Data Nikia rce(s) Supporting Document(s) creatinine for GFR 0.87 mg/dL 0.55-1.30 Creatinine for GF R MALIK ([facility]) glucose, fasting 362 mg/dL 70-100 Above high normal Glucose, Fas ting MALIK ([facility]) glomerular filtration rate > 60.0 >58 Glomerula r Filtration Rate MALIK ([facility]) blood urea nitrogen 14 mg/dL 7-18 Blood Urea Nitro gen MALIK ([facility]) sodium level 133 mEq/L 136-145 Below low normal Sodium Level ATHE NA ([facility]) chloride level 100 mEq/L 98-107 Chloride Level MALIK ([facility]) carbon dioxide level 25 mEq/L 21-32 Carbon Dioxide Level MALIK ([facility]) potassium serum 4.6 mEq/L 3.5-5.1 Potassium Serum ATHE NA ([facility]) ALT/SGPT 21 U/L 12-78 ALT/SGPT MALIK ([facility]) anion gap 8 mEq/L 8-16 Anion Gap MALIK ([facility]) calcium level 8.9 mg/dL 8.5-10.1 Calcium Level MALIK ( [facility]) AST/SGOT 15 U/L 7-37 AST/SGOT MALIK ([facility]) bilirubin,total 0.2 mg/dL 0.2-1.0 Bilirubin,total ATHE ([facility]) albumin 3.3 gm/dL 3.2-5.2 Albumin MALIK ([facility]) total protein 7.3 gm/dL 6.4-8.2 Total Protein MALIK ( [facility]) alkaline phosphatase 87 U/L 45-117 Alkaline Phosph atase MALIK ([facility]) albumin/globulin ratio 1.2-2.2 Below low normal Albumin /globulin Ratio MALIK ([facility]) ID Date Data Source [id number] 08/24/2020 10:03:00 AM EDT [place] ([facility]) Name Value Range Interpretation Code Description Data Nikia rce(s) Supporting Document(s) estimated average glucose 303 mg/dL 60-110 Above high norm al Estimated Average Glucose [place] ([facility]) Hemoglobin A1c/Hemoglobin.total in Blood 12.2 % Hemoglobin a1C [place] ([facility]) ID Date Data Source [id number] 08/24/2020 10:03:00 AM EDT [place] ([facility]) Name Value Range Interpretation Code Description Data Nikia rce(s) Supporting Document(s) hemoglobin 11.6 g/dL 12.0-15.5 Below low normal Hemoglobin MALIK ( [facility]) red blood count 4.77 10 4.00-5.40 Red Blood Count ATHE ([facility]) white blood count 4.5 10 4.0-10.0 White Blood Count MALIK ([facility]) hematocrit 38.1 % 36.0-47.0 Hematocrit MALIK ([facility]) mean corpuscular hemoglobin 24.3 pg 27.0-33.0 Below low nor mal Mean Corpuscular Hemoglobin MALIK ([facility]) mean corpuscular volume 79.9 fL 80.0-96.0 Below low normal Mean Corpuscular Volume MALIK ([facility]) red cell distribution width 16.2 % 11.5-14.5 Above high no rmal Red Cell Distribution Width MALIK ([facility]) platelet count, automated 276 10 150-450 Platelet C ount, Automated MALIK ([facility]) mean corpuscular HGB conc 30.4 g/dL 32.0-36.5 Below low dimple l Mean Corpuscular HGB Conc MALIK ([facility]) nucleated red blood cell % 0.0 % 0-0 Nucleated Red Blood Cell % MALIK ([facility]) ID Date Data Source [id number] 08/24/2020 10:03:00 AM EDT MALIK ([facility]) Name Value Range Interpretation Code Description Data Nikia rce(s) Supporting Document(s) total 25(oh) vitamin D 11.1 NG/mL 30.0-100.0 Below low normal T otal 25(Oh) [facility] Date Data Source [id number] 08/24/2020 10:03:00 AM EDT MALIK ([facility]) Name Value Range Interpretation Code Description Data Nikia rce(s) Supporting Document(s) triglycerides level 157 mg/dL <150 Above high normal Triglycer ides Level MALIK ([facility]) cholesterol level 160 mg/dL <200 Cholesterol Level MALIK ([facility]) HDL cholesterol 41 mg/dL >40 HDL Cholesterol ATHE ([facility]) non-HDL-C 119 mg/dL Non-hdl-c MALIK ([facility]) Cholesterol in LDL [Mass/volume] in Serum or Plasma 88 mg/dL <1 00 LDL Cholesterol MALIK ([facility]) cholesterol risk ratio <5 Cholesterol R isk Ratio MALIK ([facility]) ID Date Data Source [id number] 08/24/2020 10:03:00 AM EDT MALIK ([facility]) Name Value Range Interpretation Code Description Data Nikia rce(s) Supporting Document(s) glucose, fasting 362 mg/dL 70-100 Above high normal Glucose, Fas ting MALIK ([facility]) blood urea nitrogen 14 mg/dL 7-18 Blood Urea Nitro gen MALIK ([facility]) creatinine for GFR 0.87 mg/dL 0.55-1.30 Creatinine for GF R MALIK ([facility]) glomerular filtration rate > 60.0 >58 Glomerula r Filtration Rate MALIK ([facility]) potassium serum 4.6 mEq/L 3.5-5.1 Potassium Serum ATHE ([facility]) sodium level 133 mEq/L 136-145 Below low normal Sodium Level ATHE NA ([facility]) chloride level 100 mEq/L 98-107 Chloride Level MALIK ([facility]) carbon dioxide level 25 mEq/L 21-32 Carbon Dioxide Level MALIK ([facility]) calcium level 8.9 mg/dL 8.5-10.1 Calcium Level MALIK ( [facility]) anion gap 8 mEq/L 8-16 Anion Gap MALIK ([facility]) AST/SGOT 15 U/L 7-37 AST/SGOT MALIK ([facility]) ALT/SGPT 21 U/L 12-78 ALT/SGPT MALIK ([facility]) bilirubin,total 0.2 mg/dL 0.2-1.0 Bilirubin,total ATHE NA ([facility]) alkaline phosphatase 87 U/L 45-117 Alkaline Phosph atase MALIK ([facility]) albumin 3.3 gm/dL 3.2-5.2 Albumin MALIK ([facility]) total protein 7.3 gm/dL 6.4-8.2 Total Protein MALIK ( [facility]) albumin/globulin ratio 1.2-2.2 Below low normal Albumin /globulin Ratio MALIK ([facility]) ID Date Data Source [id number] 08/24/2020 10:03:00 AM EDT MALIK ([facility]) Name Value Range Interpretation Code Description Data Nikia rce(s) Supporting Document(s) Hemoglobin A1c/Hemoglobin.total in Blood 12.2 % Hemoglobin a1C MALIK ([facility]) estimated average glucose 303 mg/dL 60-110 Above high norm al Estimated Average Glucose MALIK ([facility]) ID Date Data Source [id number] 08/24/2020 10:03:00 AM EDT MALIK ([facility]) Name Value Range Interpretation Code Description Data Nikia rce(s) Supporting Document(s) white blood count 4.5 10 4.0-10.0 White Blood Count MALIK ([facility]) red blood count 4.77 10 4.00-5.40 Red Blood Count ATHE NA ([facility]) hemoglobin 11.6 g/dL 12.0-15.5 Below low normal Hemoglobin MALIK ( [facility]) hematocrit 38.1 % 36.0-47.0 Hematocrit MALIK ([facility]) mean corpuscular hemoglobin 24.3 pg 27.0-33.0 Below low nor mal Mean Corpuscular Hemoglobin MALIK ([facility]) mean corpuscular volume 79.9 fL 80.0-96.0 Below low normal Mean Corpuscular Volume MALIK ([facility]) mean corpuscular HGB conc 30.4 g/dL 32.0-36.5 Below low dimple l Mean Corpuscular HGB Conc MALIK ([facility]) red cell distribution width 16.2 % 11.5-14.5 Above high no rmal Red Cell Distribution Width MALIK ([facility]) platelet count, automated 276 10 150-450 Platelet C ount, Automated MALIK ([facility]) nucleated red blood cell % 0.0 % 0-0 Nucleated Red Blood Cell % MALIK ([facility]) ID Date Data Source [id number] 08/22/2020 10:04:00 AM EDT MALIK ([facility]) Name Value Range Interpretation Code Description Data Nikia rce(s) Supporting Document(s) HCG negative Hcg MALIK ([facility]) ID Date Data Source [id number] 08/22/2020 10:04:00 AM EDT MALIK ([facility]) Name Value Range Interpretation Code Description Data Nikia rce(s) Supporting Document(s) HCG negative Hcg MALIK ([facility]) ID Date Data Source [id number] 08/22/2020 10:04:00 AM EDT MALIK ([facility]) Name Value Range Interpretation Code Description Data Nikia rce(s) Supporting Document(s) HCG negative Hcg MALIK ([facility]) ID Date Data Source [id number] 08/22/2020 10:04:00 AM EDT MALIK ([facility]) Name Value Range Interpretation Code Description Data Nikia rce(s) Supporting Document(s) HCG negative Hcg MALIK ([facility]) ID Date Data Source [id number] 08/17/2020 03:10:00 PM EDT [place] ([facility]) Name Value Range Interpretation Code Description Data Nikia rce(s) Supporting Document(s) GC DNA probe negative negative GC DNA Probe MALIK ([facility]) chlamydia DNA probe negative negative Chlamydia DNA Pr obe [place] ([facility]) ID Date Data Source [id number] 08/17/2020 03:10:00 PM EDT [place] ([facility]) Name Value Range Interpretation Code Description Data Nikia rce(s) Supporting Document(s) ID Date Data Source [id number] 08/17/2020 03:10:00 PM EDT [place] ([facility]) Name Value Range Interpretation Code Description Data Nikia rce(s) Supporting Document(s) trichomonas vaginalis (amp) not detected negative Tricho monas Vaginalis (Amp) [place] ([facility]) ID Date Data Source [id number] 08/17/2020 03:10:00 PM EDT [place] ([facility]) Name Value Range Interpretation Code Description Data Nikia rce(s) Supporting Document(s) creatinine, urine 113.0 mg/dL Creatinine, Urine MALIK ([facility]) malb urine siemens 26.1 mg/L Malb Urine Siemen s MALIK ([facility]) angelo/creat ratio 23.0 mcg/mg 0.0-30.0 Angelo/creat Ratio ATH PRAKASH ([facility]) ID Date Data Source [id number] 08/17/2020 03:10:00 PM EDT [facility]) Name Value Range Interpretation Code Description Data Nikia rce(s) Supporting Document(s) appearance, urine hazy clear Appearance, Urine [place] ([facility]) specific gravity urine auto 1.002-1.035 Specifi c [place] Urine Auto [place] ([facility]) pH,urine 5.0 units 5.0-9.0 pH,urine MALIK ([facility]) color, urine yellow yellow Color, Urine MALIK ([facility]) protein, urine auto negative negative Protein, Urine A uto MALIK ([facility]) ketone, urine auto negative negative Ketone, Urine Aut o MALIK ([facility]) glucose, urine (UA) auto 3+ negative Above high normal Gluc ose, Urine (UA) Auto MALIK ([facility]) urobilinogen, urine auto 0.2 mg/dL 0.0-2.0 Urobilinoge n, Urine Auto MALIK ([facility]) leukocyte esterase, urine auto 1+ negative Above high normal Leukocyte Esterase, Urine Auto MALIK ([facility]) bilirubin, urine auto negative negative Bilirubin, Uri ne Auto MALIK ([facility]) blood, urine blood negative negative Blood, Urine Bloo d MALIK ([facility]) nitrite, urine auto negative negative Nitrite, Urine A uto MALIK ([facility]) WBC, urine auto 4 /hpf 0-3 Above high normal WBC, Urine Au to MALIK ([facility]) bacteria, urine auto negative negative Bacteria, Urine Auto MALIK ([facility]) hyaline cast, urine auto 0 /lpf 0-1 Hyaline Anton t, Urine Auto MALIK ([facility]) squamous epithelial cell ur AU 12 /hpf 0-6 Squam ous Epithelial Cell Ur AU MALIK ([facility]) RBC, urine auto 3 /hpf 0-3 RBC, Urine Auto ATHE NA ([facility]) ID Date Data Source [id number] 08/17/2020 03:10:00 PM EDT MALIK ([facility]) Name Value Range Interpretation Code Description Data Nikia rce(s) Supporting Document(s) GC DNA probe negative negative GC DNA Probe MALIK (No [facility]) chlamydia DNA probe negative negative Chlamydia DNA Pr obe MALIK ([facility]) ID Date Data Source [id number] 08/17/2020 03:10:00 PM EDT MALIK ([facility]) Name Value Range Interpretation Code Description Data Nikia rce(s) Supporting Document(s) ID Date Data Source [id number] 08/17/2020 03:10:00 PM EDT [place] ([facility]) Name Value Range Interpretation Code Description Data Nikia rce(s) Supporting Document(s) trichomonas vaginalis (amp) not detected negative Tricho monas Vaginalis (Amp) [place] ([facility]) ID Date Data Source [id number] 08/17/2020 03:10:00 PM EDT [place] ([facility]) Name Value Range Interpretation Code Description Data Nikia rce(s) Supporting Document(s) malb urine siemens 26.1 mg/L Malb Urine Siemen s MALIK ([facility]) angelo/creat ratio 23.0 mcg/mg 0.0-30.0 Angelo/creat Ratio ATH PRAKASH ([facility]) creatinine, urine 113.0 mg/dL Creatinine, Urine MALIK ([facility]) ID Date Data Source [id number] 08/17/2020 03:10:00 PM EDT [place] ([facility]) Name Value Range Interpretation Code Description Data Nikia rce(s) Supporting Document(s) appearance, urine hazy clear Appearance, Urine MALIK ([facility]) color, urine yellow yellow Color, Urine MALIK (No [facility]) ketone, urine auto negative negative Ketone, Urine Aut o MALIK ([facility]) protein, urine auto negative negative Protein, Urine A uto MALIK ([facility]) glucose, urine (UA) auto 3+ negative Above high normal Gluc ose, Urine (UA) Auto MALIK ([facility]) specific gravity urine auto 1.002-1.035 Specifi c [place] Urine Auto [place] ([facility]) pH,urine 5.0 units 5.0-9.0 pH,urine MALIK ([facility]) urobilinogen, urine auto 0.2 mg/dL 0.0-2.0 Urobilinoge n, Urine Auto MALIK ([facility]) leukocyte esterase, urine auto 1+ negative Above high normal Leukocyte Esterase, Urine Auto MALIK ([facility]) bilirubin, urine auto negative negative Bilirubin, Uri ne Auto [place] ([facility]) blood, urine blood negative negative Blood, Urine Bloo d MALIK ([facility]) nitrite, urine auto negative negative Nitrite, Urine A uto MALIK ([facility]) bacteria, urine auto negative negative Bacteria, Urine Auto [place] ([facility]) hyaline cast, urine auto 0 /lpf 0-1 Hyaline Anton t, Urine Auto [place] ([facility]) squamous epithelial cell ur AU 12 /hpf 0-6 Squam ous Epithelial Cell Ur AU [place] ([facility]) RBC, urine auto 3 /hpf 0-3 RBC, Urine Auto ATHE NA ([facility]) WBC, urine auto 4 /hpf 0-3 Above high normal WBC, Urine Au to MALIK ([facility]) ID Date Data Source [id number] 08/17/2020 03:10:00 PM EDT [place] ([facility]) Name Value Range Interpretation Code Description Data Nikia rce(s) Supporting Document(s) chlamydia DNA probe negative negative Chlamydia DNA Pr obe [place] ([facility]) GC DNA probe negative negative GC DNA Probe MALIK (No [facility]) ID Date Data Source [id number] 08/17/2020 03:10:00 PM EDT [place] ([facility]) Name Value Range Interpretation Code Description Data Nikia rce(s) Supporting Document(s) ID Date Data Source [id number] 08/17/2020 03:10:00 PM EDT [facility]) Name Value Range Interpretation Code Description Data Nikia rce(s) Supporting Document(s) trichomonas vaginalis (amp) not detected negative Tricho monas Vaginalis (Amp) [place] ([facility]) ID Date Data Source [id number] 08/17/2020 03:10:00 PM EDT [place] ([facility]) Name Value Range Interpretation Code Description Data Nikia rce(s) Supporting Document(s) creatinine, urine 113.0 mg/dL Creatinine, Urine MALIK ([facility]) malb urine siemens 26.1 mg/L Malb Urine Siemen s MALIK ([facility]) angelo/creat ratio 23.0 mcg/mg 0.0-30.0 Angelo/creat Ratio ATH PRAKASH ([facility]) ID Date Data Source [id number] 08/17/2020 03:10:00 PM EDT [place] ([facility]) Name Value Range Interpretation Code Description Data Nikia rce(s) Supporting Document(s) appearance, urine hazy clear Appearance, Urine MALIK ([facility]) color, urine yellow yellow Color, Urine MALIK (No [facility]) pH,urine 5.0 units 5.0-9.0 pH,urine [place] ([facility]) specific gravity urine auto 1.002-1.035 Specifi c [place] Urine Auto [place] ([facility]) protein, urine auto negative negative Protein, Urine A coo [place] ([facility]) glucose, urine (UA) auto 3+ negative Above high normal Gluc ose, Urine (UA) Auto MALIK ([facility]) urobilinogen, urine auto 0.2 mg/dL 0.0-2.0 Urobilinoge n, Urine Auto MALIK ([facility]) ketone, urine auto negative negative Ketone, Urine Aut o [place] ([facility]) nitrite, urine auto negative negative Nitrite, Urine A uto [place] ([facility]) bilirubin, urine auto negative negative Bilirubin, Uri ne Auto [place] ([facility]) leukocyte esterase, urine auto 1+ negative Above high normal Leukocyte Esterase, Urine Auto MALIK ([facility]) blood, urine blood negative negative Blood, Urine Bloo d MALIK ([facility]) WBC, urine auto 4 /hpf 0-3 Above high normal WBC, Urine Au to MALIK ([facility]) RBC, urine auto 3 /hpf 0-3 RBC, Urine Auto ATHE NA ([facility]) bacteria, urine auto negative negative Bacteria, Urine Auto MALIK ([facility]) hyaline cast, urine auto 0 /lpf 0-1 Hyaline Anton t, Urine Auto MALIK ([facility]) squamous epithelial cell ur AU 12 /hpf 0-6 Squam ous Epithelial Cell Ur AU MALIK ([facility]) ID Date Data Source [id number] 08/17/2020 03:10:00 PM EDT [facility]) Name Value Range Interpretation Code Description Data Nikia rce(s) Supporting Document(s) chlamydia DNA probe negative negative Chlamydia DNA Pr obe [place] ([facility]) GC DNA probe negative negative GC DNA Probe MALIK (No [facility]) ID Date Data Source [id number] 08/17/2020 03:10:00 PM EDT [facility]) Name Value Range Interpretation Code Description Data Nikia rce(s) Supporting Document(s) ID Date Data Source [id number] 08/17/2020 03:10:00 PM EDT [facility]) Name Value Range Interpretation Code Description Data Nikia rce(s) Supporting Document(s) trichomonas vaginalis (amp) not detected negative Tricho monas Vaginalis (Amp) [facility]) ID Date Data Source [id number] 08/17/2020 03:10:00 PM EDT [facility]) Name Value Range Interpretation Code Description Data Nikia rce(s) Supporting Document(s) malb urine siemens 26.1 mg/L Malb Urine Siemen s MALIK ([facility]) creatinine, urine 113.0 mg/dL Creatinine, Urine MALIK ([facility]) angelo/creat ratio 23.0 mcg/mg 0.0-30.0 Angelo/creat Ratio ATH PRAKASH ([facility]) ID Date Data Source [id number] 08/17/2020 03:10:00 PM EDT MALIK ([facility]) Name Value Range Interpretation Code Description Data Nikia rce(s) Supporting Document(s) color, urine yellow yellow Color, Urine MALIK (No [facility]) pH,urine 5.0 units 5.0-9.0 pH,urine MALIK ([facility]) appearance, urine hazy clear Appearance, Urine MALIK ([facility]) ketone, urine auto negative negative Ketone, Urine Aut o MALIK ([facility]) glucose, urine (UA) auto 3+ negative Above high normal Gluc ose, Urine (UA) Auto MALIK ([facility]) specific gravity urine auto 1.002-1.035 Specifi c [place] Urine Auto MALIK ([facility]) protein, urine auto negative negative Protein, Urine A uto MALIK ([facility]) bilirubin, urine auto negative negative Bilirubin, Uri ne Auto MALIK ([facility]) urobilinogen, urine auto 0.2 mg/dL 0.0-2.0 Urobilinoge n, Urine Auto MALIK ([facility]) leukocyte esterase, urine auto 1+ negative Above high normal Leukocyte Esterase, Urine Auto MALIK ([facility]) nitrite, urine auto negative negative Nitrite, Urine A uto MALIK ([facility]) blood, urine blood negative negative Blood, Urine Bloo d MALIK ([facility]) RBC, urine auto 3 /hpf 0-3 RBC, Urine Auto ATHE NA ([facility]) WBC, urine auto 4 /hpf 0-3 Above high normal WBC, Urine Au to MALIK ([facility]) bacteria, urine auto negative negative Bacteria, Urine Auto MALIK ([facility]) hyaline cast, urine auto 0 /lpf 0-1 Hyaline Anton t, Urine Auto [place] ([facility]) squamous epithelial cell ur AU 12 /hpf 0-6 Squam ous Epithelial Cell Ur AU MALIK ([facility]) ID Date Data Source [id number] 08/17/2020 03:10:00 PM EDT [place] ([facility]) Name Value Range Interpretation Code Description Data Nikia rce(s) Supporting Document(s) chlamydia DNA probe negative negative Chlamydia DNA Pr obe [place] ([facility]) GC DNA probe negative negative GC DNA Probe [place] (No [facility]) ID Date Data Source [id number] 08/17/2020 03:10:00 PM EDT [place] ([facility]) Name Value Range Interpretation Code Description Data Nikia rce(s) Supporting Document(s) trichomonas vaginalis (amp) not detected negative Tricho monas Vaginalis (Amp) [place] ([facility]) ID Date Data Source [id number] 08/17/2020 03:10:00 PM EDT [place] ([facility]) Name Value Range Interpretation Code Description Data Nikia rce(s) Supporting Document(s) color, urine yellow yellow Color, Urine MALIK (No [facility]) appearance, urine hazy clear Appearance, Urine [place] ([facility]) specific gravity urine auto 1.002-1.035 Specifi c [place] Urine Auto [place] ([facility]) protein, urine auto negative negative Protein, Urine A uto [place] ([facility]) pH,urine 5.0 units 5.0-9.0 pH,urine MALIK ([facility]) glucose, urine (UA) auto 3+ negative Above high normal Gluc ose, Urine (UA) Auto [place] ([facility]) leukocyte esterase, urine auto 1+ negative Above high normal Leukocyte Esterase, Urine Auto [place] ([facility]) ketone, urine auto negative negative Ketone, Urine Aut o [place] ([facility]) nitrite, urine auto negative negative Nitrite, Urine A uto MALIK ([facility]) urobilinogen, urine auto 0.2 mg/dL 0.0-2.0 Urobilinoge n, Urine Auto MALIK ([facility]) bilirubin, urine auto negative negative Bilirubin, Uri ne Auto MALIK ([facility]) RBC, urine auto 3 /hpf 0-3 RBC, Urine Auto ATHE NA ([facility]) bacteria, urine auto negative negative Bacteria, Urine Auto MALIK ([facility]) WBC, urine auto 4 /hpf 0-3 Above high normal WBC, Urine Au to MALIK ([facility]) blood, urine blood negative negative Blood, Urine Bloo d [place] ([facility]) hyaline cast, urine auto 0 /lpf 0-1 Hyaline Anton t, Urine Auto [place] ([facility]) squamous epithelial cell ur AU 12 /hpf 0-6 Squam ous Epithelial Cell Ur AU [place] ([facility]) Procedure Social History No Information Vital Signs ID Date Data Source UNK Name Value Range Interpretation Code Description Data Source(s) Diastolic blood pressure 94 mm[Hg] 94 mm[Hg] MALIK ([facility]) Diastolic blood pressure 94 mm[Hg] 94 mm[Hg] MALIK ([facility]) Body height 62 [in_i] 62 [in_i] MALIK ([facility]) Body mass index (BMI) [Ratio] 50.2 kg/m2 50.2 k g/m2 MALIK ([facility]) Systolic blood pressure 158 mm[Hg] 158 mm[Hg] A [facility] ([facility]) Systolic blood pressure 148 mm[Hg] 148 mm[Hg] [facility] Body weight 4388 [oz_av] 4388 [oz_av] MALIK ([facility]) Diastolic blood pressure 94 mm[Hg] 94 mm[Hg] MALIK ([facility]) Diastolic blood pressure 94 mm[Hg] 94 mm[Hg] MALIK ([facility]) Body height 62 [in_i] 62 [in_i] MALIK ([facility]) Body mass index (BMI) [Ratio] 50.2 kg/m2 50.2 k g/m2 MALIK ([facility]) Systolic blood pressure 158 mm[Hg] 158 mm[Hg] A [place] ([facility]) Systolic blood pressure 148 mm[Hg] 148 mm[Hg] A [place] ([facility]) Body weight 4388 [oz_av] 4388 [oz_av] MALIK ([facility]) Diastolic blood pressure 94 mm[Hg] 94 mm[Hg] MALIK ([facility]) Diastolic blood pressure 95 mm[Hg] 95 mm[Hg] MALIK ([facility]) Body height 62 [in_i] 62 [in_i] MALIK ([facility]) Body mass index (BMI) [Ratio] 51.2 kg/m2 51.2 k g/m2 MALIK ([facility]) Systolic blood pressure 144 mm[Hg] 144 mm[Hg] A [place] ([facility]) Systolic blood pressure 139 mm[Hg] 139 mm[Hg] A THENA ([facility]) Body weight 4480 [oz_av] 4480 [oz_av] MALIK ([facility]) Diastolic blood pressure 94 mm[Hg] 94 mm[Hg] MALIK ([facility]) Diastolic blood pressure 95 mm[Hg] 95 mm[Hg] MALIK ([facility]) Body height 62 [in_i] 62 [in_i] MALIK ([facility]) Body mass index (BMI) [Ratio] 51.2 kg/m2 51.2 k g/m2 MALIK ([facility]) Systolic blood pressure 144 mm[Hg] 144 mm[Hg] A THE[place] ([facility]) Systolic blood pressure 139 mm[Hg] 139 mm[Hg] A THE[place] ([facility]) Body weight 4480 [oz_av] 4480 [oz_av] MALIK ([facility]) Diastolic blood pressure 94 mm[Hg] 94 mm[Hg] MALIK ([facility]) Diastolic blood pressure 95 mm[Hg] 95 mm[Hg] MALIK ([facility]) Body height 62 [in_i] 62 [in_i] MALIK ([facility]) Body mass index (BMI) [Ratio] 51.2 kg/m2 51.2 k g/m2 MALIK ([facility]) Systolic blood pressure 144 mm[Hg] 144 mm[Hg] A THE[place] ([facility]) Systolic blood pressure 139 mm[Hg] 139 mm[Hg] A THENA ([facility]) Body weight 4480 [oz_av] 4480 [oz_av] MALIK ([facility]) Diastolic blood pressure 93 mm[Hg] 93 mm[Hg] MALIK ([facility]) Diastolic blood pressure 79 mm[Hg] 79 mm[Hg] MALIK ([facility]) Body height 62 [in_i] 62 [in_i] MALIK ([facility]) Body mass index (BMI) [Ratio] 49.1 kg/m2 49.1 k g/m2 MALIK ([facility]) Systolic blood pressure 143 mm[Hg] 143 mm[Hg] A THENA ([facility]) Systolic blood pressure 157 mm[Hg] 157 mm[Hg] A THENA ([facility]) Body weight 4296 [oz_av] 4296 [oz_av] MALIK ([facility]) Diastolic blood pressure 93 mm[Hg] 93 mm[Hg] MALIK ([facility]) Diastolic blood pressure 79 mm[Hg] 79 mm[Hg] MALIK ([facility]) Body height 62 [in_i] 62 [in_i] MALIK ([facility]) Body mass index (BMI) [Ratio] 49.1 kg/m2 49.1 k g/m2 MALIK ([facility]) Systolic blood pressure 143 mm[Hg] 143 mm[Hg] A THENA ([facility]) Systolic blood pressure 157 mm[Hg] 157 mm[Hg] A THENA ([facility]) Body weight 4296 [oz_av] 4296 [oz_av] MALIK ([facility]) Diastolic blood pressure 93 mm[Hg] 93 mm[Hg] MALIK ([facility]) Diastolic blood pressure 79 mm[Hg] 79 mm[Hg] MALIK ([facility]) Body height 62 [in_i] 62 [in_i] MALIK ([facility]) Body mass index (BMI) [Ratio] 49.1 kg/m2 49.1 k g/m2 MALIK ([facility]) Systolic blood pressure 143 mm[Hg] 143 mm[Hg] A THENA ([facility]) Systolic blood pressure 157 mm[Hg] 157 mm[Hg] A [facility] ([facility]) Body weight 4296 [oz_av] 4296 [oz_av] MALIK ([facility]) Diastolic blood pressure 93 mm[Hg] 93 mm[Hg] MALIK ([facility]) Diastolic blood pressure 79 mm[Hg] 79 mm[Hg] MALIK ([facility]) Body height 62 [in_i] 62 [in_i] MALIK ([facility]) Body mass index (BMI) [Ratio] 49.1 kg/m2 49.1 k g/m2 MALIK ([facility]) Systolic blood pressure 143 mm[Hg] 143 mm[Hg] A THENA ([facility]) Systolic blood pressure 157 mm[Hg] 157 mm[Hg] A THENA ([facility]) Body weight 4296 [oz_av] 4296 [oz_av] MALIK ([facility]) Diastolic blood pressure 79 mm[Hg] 79 mm[Hg] MALIK ([facility]) Diastolic blood pressure 93 mm[Hg] 93 mm[Hg] MALIK ([facility]) Body height 62 [in_i] 62 [in_i] MALIK ([facility]) Body mass index (BMI) [Ratio] 49.1 kg/m2 49.1 k g/m2 MALIK ([facility]) Systolic blood pressure 143 mm[Hg] 143 mm[Hg] A THENA ([facility]) Systolic blood pressure 157 mm[Hg] 157 mm[Hg] A [facility] ([facility]) Body weight 4296 [oz_av] 4296 [oz_av] MALIK ([facility]) Patient Treatment Plan of Care Planned Activity Planned Date Details Description Data Source (s) amoxicillin 875mg- take 1 tablet by mouth every 12hrs for the next 10 days 01/18/2021 12:00:00 AM EDT MALIK ([facility]) Metformin hydrochloride 1000 MG Oral Tablet 10/18/2020 12:00:00 AM EDT [place] ([facility]) Metformin hydrochloride 1000 MG Oral Tablet 10/18/2020 12:00:00 AM EDT [place] ([facility]) Fluconazole 150 MG Oral Tablet [Diflucan] [place] ([facility])
[2021-01-18 14:04] VITALS: BP 180/92
--- OUTSIDE RECORDS SUMMARY | 2021-01-18 17:32 | CCD ---
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 If you continue you may have access to information: Regarding HIV / AIDS; Provided by facilities licensed or operated by the [facility] Office of Mental Health; or Provided by the [facility] Office for People With Developmental Disabilities. If such information is present, then the following [facility] mandated warning applies: This information has been [...] law may result in a fine or care home sentence or both. A general authorization for the release of medical or other information is NOT sufficient authorization for further disc losure. Encounters Encounter Providers Location Date Indications Data Source(s ) ERYN Zimmer: [address], [place] [address], Ph. Attender: KELVIN CERNA [facility] 01/18/2021 12:00:00 AM EDT MALIK ([facility]) ERYN Zimmer: [address], [place] [address], Ph. Attender: KELVIN CERNA [facility] 11/28/2020 12:00:00 AM EDT MALIK ([facility]) KATHI ZimmerC: [address], [place] [address], Ph. Attender: KELVIN CERNA [facility] 11/28/2020 12:00:00 AM EDT MALIK ([facility]) KATHI ZimmerC: [address], [place] [address], Ph. Attender: KELVIN CERNA [facility] 10/17/2020 12:00:00 AM EDT MALIK ([facility]) Kelvin Talavera, RPA-C: [address], [place] [address], Ph. Attender: KELVIN TALAVERA RPA-C [facility] 10/17/2020 12:00:00 AM EDT MALIK ([facility]) Kelvin Talavera, RPA-C: [address], [place] [address], Ph. Attender: KELVIN TALAVERA RPA-C [facility] 10/17/2020 12:00:00 AM EDT MALIK ([facility]) Klevin Talavera, RPA-C: [address], [place] [address], Ph. Attender: KELVIN TALAVERA RPA-C [facility] 08/24/2020 12:00:00 AM EDT MALIK ([facility]) Kelvin Talavera, RPA-C: [address], [place] [address], Ph. Attender: KELVIN TALAVERA RPA-C [facility] 08/24/2020 12:00:00 AM EDT MALIK ([facility]) Kelvin Talavera, RPA-C: [address], [place] [address], Ph. Attender: KELVIN TALAVERA RPA-C [facility] 08/24/2020 12:00:00 AM EDT MALIK ([facility]) Kelvin Talavera RPA-C: [address], [place] [address], Ph. Attender: KELVIN TALAVERA RPA-C [facility] 08/24/2020 12:00:00 AM EDT MALIK ([facility]) Kelvin Talavera, RPA-C: [address], [place] [address], Ph. Attender: KELVIN TALAVERA RPA-C [facility] 08/17/2020 12:00:00 AM EDT MALIK ([facility]) Kelvin Talavera, RPA-C: [address], [place] [address], Ph. Attender: KELVIN TALAVERA RPA-C [facility] 08/17/2020 12:00:00 AM EDT MALIK ([facility]) Kelvin Talavera, RPA-C: [address], [place] [address], Ph. Attender: KELVIN TALAVERA RPA-C [facility] 08/17/2020 12:00:00 AM EDT MALIK ([facility]) Kelvin Talavera RPA-C: [address], [place] [address], Ph. Attender: KELVIN TALAVERA RPA-C [facility] 08/17/2020 12:00:00 AM EDT MALIK ([facility]) Kelvin Talavera, RPA-C: [address], [place] [address], Ph. Attender: KELVIN TALAVERA RPA-C [facility] 08/17/2020 12:00:00 AM EDT MALIK ([facility]) Kelvin Talavera, RPA-C: [address] [place] [facility] [address], [place] [address], Ph. Attender: KELVIN TALAVERA RPA-C [facility] 03/06/2020 12:00:00 AM EST MALIK ([facility]) Outpatient Attender: KELVIN TALAVERA RPA-C [facility] 12/08/2019 01:10:02 PM EDT [facility] Outpatient Attender: KELVIN TALAVERA RPA-C [facility] 11/23/2019 08:18:01 AM EDT [facility] Outpatient Attender: KELVIN TALAVERA RPA-C [facility] 11/23/2019 08:18:00 AM EDT [facility] Outpatient Attender: KELVIN TALAVERA RPA-C [facility] 11/21/2019 02:21:02 PM EDT [facility] Immunizations Vaccine Date Status Description Data Source(s) SARS-COV-2 (COVID-19) vaccine, UNSPECIFIED 07/25/2020 12:00:00 A M EDT completed 07/25/2020 MALIK ([facility]) SARS-COV-2 (COVID-19) vaccine, UNSPECIFIED 07/25/2020 12:00:00 A M EDT completed 07/25/2020 MALIK ([facility]) SARS-COV-2 (COVID-19) vaccine, UNSPECIFIED 07/25/2020 12:00:00 A M EDT completed 07/25/2020 MALIK ([facility]) SARS-COV-2 (COVID-19) vaccine, UNSPECIFIED 07/25/2020 12:00:00 A M EDT completed 07/25/2020 MALIK ([facility]) SARS-COV-2 (COVID-19) vaccine, UNSPECIFIED 07/25/2020 12:00:00 A M EDT completed 07/25/2020 MALIK ([facility]) COVID-19 VACCINE Moderna 07/25/2020 12:00:00 AM EDT completed [place] Vaccine Series Complete: YESThis Data wa s Submitted to [facility] Via [email or web address]. SARS-COV-2 (COVID-19) vaccine, UNSPECIFIED 06/30/2020 12:00:00 A M EDT completed 06/30/2020 DRY FORK ([facility]) SARS-COV-2 (COVID-19) vaccine, UNSPECIFIED 06/30/2020 12:00:00 A M EDT completed 06/30/2020 MALIK ([facility]) SARS-COV-2 (COVID-19) vaccine, UNSPECIFIED 06/30/2020 12:00:00 A M EDT completed 06/30/2020 MALIK ([facility]) SARS-COV-2 (COVID-19) vaccine, UNSPECIFIED 06/30/2020 12:00:00 A M EDT completed 06/30/2020 DRY [place]K ([facility]) SARS-COV-2 (COVID-19) vaccine, UNSPECIFIED 06/30/2020 12:00:00 A M EDT completed 06/30/2020 DRY [place]K ([facility]) COVID-19 VACCINE Moderna 06/30/2020 12:00:00 AM EDT completed [place] Vaccine Series Complete: NOThis Data was Submitted to [facility] Via [email or web address]. Medications Medication Brand Name Start Date Product Form Dose Route Admi nistrative Instructions Pharmacy Instructions Status Indications Reaction Description Data Source(s) amoxicillin 875mg- take 1 tablet by mouth every 12hrs for th e next 10 days 01/18/2021 12:00:00 AM EDT completed Zeusxatacarter HUMMELMALIK ([facility]) 100,000 unit/gram 11/29/2020 12:00:00 AM EDT cream [...] DAILY D OSE = 4 SOLD: 10/31/2020 [facility] 1.5 mg/0.5 mL 10/19/2020 12:00:00 [...] metformin hydrochloride 1000 MG Oral Tablet MALIK ([facility]) Metformin hydrochloride 1000 MG Oral Tab let metformin 1,000 mg tablet Take 1 tablet twice a day by oral route. metformin 1,000 mg tablet Take 1 tablet twice a day by oral route. 10/18/2020 12:00:00 AM EDT 1 completed metformin hydrochloride 1000 MG Oral Tablet DRY FORK ([facility]) 1,250 mcg (50,000 unit) 10/17/2020 12:00:00 AM [...] fluconazole 150 MG Oral Tablet [Diflucan] MALIK ([facility]) Insurance Providers Payer name Policy type / Coverage type Policy ID Covered green party ID Covered green party's relationship to cabrera Policy Cabrera Plan Information Medicaid S [id number] S [id number] D [facility] P [id number] S [id number] [facility] P [id number] S [id number] Medicaid S [id number] S [id number] [facility] Community Plan P [id number] S [id number] [facility] P [id number] S [id number] Medicaid S [id number] S [id number] [facility] UHC Community Plan P [id number] S [id number] Medicaid S UNAVAILABLE S UNAVAILA BLE MEDICAID -PHYSICIAN [id number] 1 [id number] MEDICAID -O/P EMERGENCY ROOM [id number] SELF PAY ONLY [id number] SP [id number] UNHC COMMUNITY PLAN MCDO [id number] SP [id number] [place] [id number] SP [id number] SELF PAY ONLY [id number] SP SP1 UNHC COMMUNITY PLAN MCDHMO [id number] SP [id number] [place] [id number] SP [id number] [facility](MCAID) O [id number] S [id number] MEDICAID [id number] SP [id number] UN COMMUNITY PLAN MCDO [id number] SP [id number] Medicaid S [id number] S [id number] [facility] P [id number] S [id number] Problems, Conditions, and Diagnoses Code Display Name Description Problem Type Effective Dates Data Source(s) 168586218 SNOMED CT Concept SNOMED CT Concept Problem 10/06 12:00:00 AM EDT - 10/24/2020 12:00:00 AM EDT MALIK ([facility]) [id number] SNOMED CT Concept SNOMED CT Concept Problem 10/06 12:00:00 AM EDT - 10/24/2020 12:00:00 AM EDT MALIK ([facility]) [id number] Evaluation finding Evaluation Finding Problem 09/2018 12:00:00 AM EDT - 10/24/2020 12:00:00 AM EDT MALIK ([facility]) [id number] Evaluation finding Evaluation Finding Problem 09/2018 12:00:00 AM EDT - 10/24/2020 12:00:00 AM EDT MALIK ([facility]) [id number] Impacted cerumen in left ear Impacted Cerumen i n Left Ear Problem 06/21/2018 12:00:00 AM EDT - 10/24/2020 12:00:00 AM ED T MALIK ([facility]) [id number] Endocrine/metabolic screening Endocrine/metabolic Scre ening Problem 06/21/2018 12:00:00 AM EDT - 10/24/2020 12:00:00 AM EDT DRY FORK ([facility]) [id number] Impacted cerumen in left ear Impacted Cerumen i n Left Ear Problem 06/21/2018 12:00:00 AM EDT - 10/24/2020 12:00:00 AM ED T DRY FORK ([facility]) [id number] Endocrine/metabolic screening Endocrine/metabolic Scre ening Problem 06/21/2018 12:00:00 AM EDT - 10/24/2020 12:00:00 AM EDT DRY [place]K ([facility]) Surgeries/Procedures No Information Results ID Date Data Source [id number] 11/28/2020 12:17:00 PM EDT [facility]) Name Value Range Interpretation Code Description Data Nikia rce(s) Supporting Document(s) Trichomonas vaginalis rRNA [Presence] in Unspecified specimen by Probe and target amplification method not detected not detected Tric homonas Vaginalis, Ql Tma, Pap Vial DRY FORK ([facility]) ID Date Data Source [id number] 11/28/2020 12:17:00 PM EDT [facility]) Name Value Range Interpretation Code Description Data Nikia rce(s) Supporting Document(s) Neisseria gonorrhoeae rRNA [Presence] in Unspecified specimen by Probe and target amplification method not detected not detected Neis seria Gonorrhoeae RNA, Tma, Urogenital DRY FORK ([facility]) Chlamydia trachomatis rRNA [Presence] in Unspecified specimen by Probe and target amplification method not detected not detected Chla mydia Trachomatis RNA, Tma, Urogenital DRY [place]K ([facility]) comment Comment DRY FORK ([facility]) ID Date Data Source [id number] 11/28/2020 12:17:00 PM EDT DRY FORK ([facility]) Name Value Range Interpretation Code Description Data Nikia rce(s) Supporting Document(s) Hemoglobin A1c/Hemoglobin.total in Blood tnp Hemoglobin a1C DRY [place]K ([facility]) ID Date Data Source [id number] 11/28/2020 12:17:00 PM EDT DRY [place]K ([facility]) Name Value Range Interpretation Code Description Data Nikia rce(s) Supporting Document(s) Clinical information Clinical Inform ation: MALIK ([facility]) Date of previous biopsy Prev. BX: A THENA ([facility]) Last menstrual period start date Lmp : MALIK ([facility]) Date of previous PAP smear Prev. Pap : MALIK ([facility]) Statement of adequacy [Interpretation] o f Cervical or vaginal smear or scraping by Cyto stain Statement of Adequacy: DAVID DEL REAL ([facility]) Specimen source [Identifier] in Cervical or vaginal smear or scraping by Cyto stain Source: DRY FORK ([facility]) Cytology study comment Cervical or vaginal smear or scraping Cyto s tain Comment: MALIK ([facility]) Supervisor Machine Setter who read Cyto stain of Cervical or vaginal smear or scra ping Lockstitch Hemmer: MALIK ([facility]) Microscopic observation [Identifier] in Cervix by Cyto stain Interpretation/result: MALIK ([facility]) comment Comment MALIK ([facility]) Human papilloma virus E6+E7 mRNA [Presen ce] in Cervix by Probe and target amplification method not detected not detected Hpv Mrna E6/E7 GET Hurtado ([facility]) ID Date Data Source [id number] 11/28/2020 12:17:00 PM EDT DRY FORK ([facility]) Name Value Range Interpretation Code Description Data Nikia rce(s) Supporting Document(s) Service comment Comment MALIK ([facility]) ID Date Data Source [id number] 11/28/2020 12:17:00 PM EDT DRY FORK ([facility]) Name Value Range Interpretation Code Description Data Nikia rce(s) Supporting Document(s) Trichomonas vaginalis rRNA [Presence] in Unspecified specimen by Probe and target amplification method not detected not detected Tric homonas Vaginalis, Ql Tma, Pap Vial DRY FORK ([facility]) ID Date Data Source [id number] 11/28/2020 12:17:00 PM EDT [facility]) Name Value Range Interpretation Code Description Data Nikia rce(s) Supporting Document(s) Chlamydia trachomatis rRNA [Presence] in Unspecified specimen by Probe and target amplification method not detected not detected Chla mydia Trachomatis RNA, Tma, Urogenital DRY FORK ([facility]) Neisseria gonorrhoeae rRNA [Presence] in Unspecified specimen by Probe and target amplification method not detected not detected Neis seria Gonorrhoeae RNA, Tma, Urogenital DRY FORK ([facility]) comment Comment [facility]) ID Date Data Source [id number] 11/28/2020 12:17:00 PM EDT [facility]) Name Value Range Interpretation Code Description Data Nikia rce(s) Supporting Document(s) Clinical information Clinical Inform ation: DRY FORK ([facility]) Date of previous biopsy Prev. BX: A THENA ([facility]) Last menstrual period start date Lmp : DRY FORK ([facility]) Date of previous PAP smear Prev. Pap : DRY FORK ([facility]) Specimen source [Identifier] in Cervical or vaginal smear or scraping by Cyto stain Source: DRY FORK ([facility]) Statement of adequacy [Interpretation] o f Cervical or vaginal smear or scraping by Cyto stain Statement of Adequacy: DAVID NA ([facility]) Microscopic observation [Identifier] in Cervix by Cyto stain Interpretation/result: DRY FORK ([facility]) Cytology study comment Cervical or vaginal smear or scraping Cyto s tain Comment: DRY FORK ([facility]) Supervisor Machine Setter who read Cyto stain of Cervical or vaginal smear or scra ping Lockstitch Hemmer: DRY FORK ([facility]) comment Comment DRY FORK ([facility]) Human papilloma virus E6+E7 mRNA [Presen ce] in Cervix by Probe and target amplification method not detected not detected Hpv Mrna E6/E7 ATHEN A ([facility]) ID Date Data Source [id number] 10/17/2020 10:06:00 AM EDT MALIK ([facility]) Name Value Range Interpretation Code Description Data Nikia rce(s) Supporting Document(s) R Eye Corrected 20/50 R Eye Corrected ATHE NA ([facility]) L Eye Corrected 20/70 L Eye Corrected ATHE NA ([facility]) L Eye Uncorrected 20/100 L Eye Uncorrected MALIK ([facility]) R Eye Uncorrected 20/100 R Eye Uncorrected MALIK ([facility]) ID Date Data Source [id number] 10/17/2020 10:06:00 AM EDT MALIK ([facility]) Name Value Range Interpretation Code Description Data Nikia rce(s) Supporting Document(s) R Eye Corrected 20/50 R Eye Corrected ATHE NA ([facility]) R Eye Uncorrected 20/100 R Eye Uncorrected MALIK ([facility]) L Eye Corrected 20/70 L Eye Corrected ATHE NA ([facility]) L Eye Uncorrected 20/100 L Eye Uncorrected MALIK ([facility]) ID Date Data Source [id number] 08/24/2020 10:03:00 AM EDT MALIK ([facility]) Name Value Range Interpretation Code Description Data Nikia rce(s) Supporting Document(s) total 25(oh) vitamin D 11.1 NG/mL 30.0-100.0 Below low normal T otal 25(Oh) Vitamin D MALIK ([facility]) ID Date Data Source [id number] 08/24/2020 10:03:00 AM EDT MALIK ([facility]) Name Value Range Interpretation Code Description Data Nikia rce(s) Supporting Document(s) cholesterol level 160 mg/dL <200 Cholesterol Level MALIK ([facility]) triglycerides level 157 mg/dL <150 Above high normal Triglycer ides Level MALIK ([facility]) HDL cholesterol 41 mg/dL >40 HDL Cholesterol ATHE ([facility]) non-HDL-C 119 mg/dL Non-hdl-c MALIK ([facility]) cholesterol risk ratio <5 Cholesterol R isk Ratio MALIK ([facility]) Cholesterol in LDL [Mass/volume] in Serum or Plasma 88 mg/dL <1 00 LDL Cholesterol MALIK ([facility]) ID Date Data Source [id number] 08/24/2020 10:03:00 AM EDT MALIK ([facility]) Name Value Range Interpretation Code Description Data Nikia rce(s) Supporting Document(s) glucose, fasting 362 mg/dL 70-100 Above high normal Glucose, Fas ting MALIK ([facility]) glomerular filtration rate > 60.0 >58 Glomerula r Filtration Rate MALIK ([facility]) creatinine for GFR 0.87 mg/dL 0.55-1.30 Creatinine for GF R MALIK ([facility]) blood urea nitrogen 14 mg/dL 7-18 Blood Urea Nitro gen MALIK ([facility]) sodium level 133 mEq/L 136-145 Below low normal Sodium Level ATHE ([facility]) potassium serum 4.6 mEq/L 3.5-5.1 Potassium Serum ATHE ([facility]) chloride level 100 mEq/L 98-107 Chloride Level MALIK ([facility]) anion gap 8 mEq/L 8-16 Anion Gap MALIK ([facility]) calcium level 8.9 mg/dL 8.5-10.1 Calcium Level MALIK ( [facility]) carbon dioxide level 25 mEq/L 21-32 Carbon Dioxide Level MALIK ([facility]) AST/SGOT 15 U/L 7-37 AST/SGOT MALIK ([facility]) alkaline phosphatase 87 U/L 45-117 Alkaline Phosph atase MALIK ([facility]) bilirubin,total 0.2 mg/dL 0.2-1.0 Bilirubin,total ATHE ([facility]) ALT/SGPT 21 U/L 12-78 ALT/SGPT MALIK ([facility]) total protein 7.3 gm/dL 6.4-8.2 Total Protein MALIK ( [facility]) albumin 3.3 gm/dL 3.2-5.2 Albumin MALIK ([facility]) albumin/globulin ratio 1.2-2.2 Below low normal Albumin /globulin Ratio MALIK ([facility]) ID Date Data Source [id number] 08/24/2020 10:03:00 AM EDT MALIK ([facility]) Name Value Range Interpretation Code Description Data Nikia rce(s) Supporting Document(s) Hemoglobin A1c/Hemoglobin.total in Blood 12.2 % Hemoglobin a1C MALIK ([facility]) estimated average glucose 303 mg/dL 60-110 Above high norm al Estimated Average Glucose MALIK ([facility]) ID Date Data Source [id number] 08/24/2020 10:03:00 AM EDT MALIK ([facility]) Name Value Range Interpretation Code Description Data Nikia rce(s) Supporting Document(s) red blood count 4.77 10 4.00-5.40 Red Blood Count ATHE ([facility]) white blood count 4.5 10 4.0-10.0 White Blood Count MALIK ([facility]) hematocrit 38.1 % 36.0-47.0 Hematocrit MALIK ([facility]) hemoglobin 11.6 g/dL 12.0-15.5 Below low normal Hemoglobin MALIK ( [facility]) mean corpuscular HGB conc 30.4 g/dL 32.0-36.5 Below low dimple l Mean Corpuscular HGB Conc MALIK ([facility]) mean corpuscular volume 79.9 fL 80.0-96.0 Below low normal Mean Corpuscular Volume MALIK ([facility]) mean corpuscular hemoglobin 24.3 pg 27.0-33.0 Below low nor mal Mean Corpuscular Hemoglobin MALIK ([facility]) red cell distribution width 16.2 % 11.5-14.5 Above high no rmal Red Cell Distribution Width MALIK ([facility]) nucleated red blood cell % 0.0 % 0-0 Nucleated Red Blood Cell % MALIK ([facility]) platelet count, automated 276 10 150-450 Platelet C ount, Automated MALIK ([facility]) ID Date Data Source [id number] 08/24/2020 10:03:00 AM EDT MALIK ([facility]) Name Value Range Interpretation Code Description Data Nikia rce(s) Supporting Document(s) total 25(oh) vitamin D 11.1 NG/mL 30.0-100.0 Below low normal T otal 25(Oh) Vitamin D DRY FORK ([facility]) ID Date Data Source [id number] 08/24/2020 10:03:00 AM EDT MALIK ([facility]) Name Value Range Interpretation Code Description Data Nikia rce(s) Supporting Document(s) triglycerides level 157 mg/dL <150 Above high normal Triglycer ides Level MALIK ([facility]) cholesterol level 160 mg/dL <200 Cholesterol Level MALIK ([facility]) Cholesterol in LDL [Mass/volume] in Serum or Plasma 88 mg/dL <1 00 LDL Cholesterol MALIK ([facility]) HDL cholesterol 41 mg/dL >40 HDL Cholesterol ATHE ([facility]) non-HDL-C 119 mg/dL Non-hdl-c MALIK ([facility]) cholesterol risk ratio <5 Cholesterol R isk Ratio MALIK ([facility]) ID Date Data Source [id number] 08/24/2020 10:03:00 AM EDT [facility]) Name Value Range Interpretation Code Description Data Nikia rce(s) Supporting Document(s) creatinine for GFR 0.87 mg/dL 0.55-1.30 Creatinine for GF R MALIK ([facility]) glucose, fasting 362 mg/dL 70-100 Above high normal Glucose, Fas ting MALIK ([facility]) glomerular filtration rate > 60.0 >58 Glomerula r Filtration Rate MALIK ([facility]) blood urea nitrogen 14 mg/dL 7-18 Blood Urea Nitro gen MALIK ([facility]) sodium level 133 mEq/L 136-145 Below low normal Sodium Level ATHE NA ([facility]) chloride level 100 mEq/L 98-107 Chloride Level MALIK ([facility]) carbon dioxide level 25 mEq/L 21-32 Carbon Dioxide Level MALIK ([facility]) potassium serum 4.6 mEq/L 3.5-5.1 Potassium Serum ATHE NA ([facility]) ALT/SGPT 21 U/L 12-78 ALT/SGPT MALIK ([facility]) anion gap 8 mEq/L 8-16 Anion Gap MALIK ([facility]) calcium level 8.9 mg/dL 8.5-10.1 Calcium Level MALIK ( [facility]) AST/SGOT 15 U/L 7-37 AST/SGOT MALIK ([facility]) bilirubin,total 0.2 mg/dL 0.2-1.0 Bilirubin,total ATHE ([facility]) albumin 3.3 gm/dL 3.2-5.2 Albumin MALIK ([facility]) total protein 7.3 gm/dL 6.4-8.2 Total Protein MALIK ( [facility]) alkaline phosphatase 87 U/L 45-117 Alkaline Phosph atase MALIK ([facility]) albumin/globulin ratio 1.2-2.2 Below low normal Albumin /globulin Ratio MALIK ([facility]) ID Date Data Source [id number] 08/24/2020 10:03:00 AM EDT DRY [place]K ([facility]) Name Value Range Interpretation Code Description Data Nikia rce(s) Supporting Document(s) estimated average glucose 303 mg/dL 60-110 Above high norm al Estimated Average Glucose DRY FORK ([facility]) Hemoglobin A1c/Hemoglobin.total in Blood 12.2 % Hemoglobin a1C DR[facility] [place]K ([facility]) ID Date Data Source [id number] 08/24/2020 10:03:00 AM EDT DRY [place]K ([facility]) Name Value Range Interpretation Code Description Data Nikia rce(s) Supporting Document(s) hemoglobin 11.6 g/dL 12.0-15.5 Below low normal Hemoglobin MALIK ( [facility]) red blood count 4.77 10 4.00-5.40 Red Blood Count ATHE ([facility]) white blood count 4.5 10 4.0-10.0 White Blood Count MALIK ([facility]) hematocrit 38.1 % 36.0-47.0 Hematocrit MALIK ([facility]) mean corpuscular hemoglobin 24.3 pg 27.0-33.0 Below low nor mal Mean Corpuscular Hemoglobin MALIK ([facility]) mean corpuscular volume 79.9 fL 80.0-96.0 Below low normal Mean Corpuscular Volume MALIK ([facility]) red cell distribution width 16.2 % 11.5-14.5 Above high no rmal Red Cell Distribution Width AMLIK ([facility]) platelet count, automated 276 10 150-450 Platelet C ount, Automated MALIK ([facility]) mean corpuscular HGB conc 30.4 g/dL 32.0-36.5 Below low dimple l Mean Corpuscular HGB Conc MALIK ([facility]) nucleated red blood cell % 0.0 % 0-0 Nucleated Red Blood Cell % MALIK ([facility]) ID Date Data Source [id number] 08/24/2020 10:03:00 AM EDT MALIK ([facility]) Name Value Range Interpretation Code Description Data Nikia rce(s) Supporting Document(s) total 25(oh) vitamin D 11.1 NG/mL 30.0-100.0 Below low normal T otal 25(Oh) [facility] ID Date Data Source [id number] 08/24/2020 10:03:00 AM EDT MALIK ([facility]) Name Value Range Interpretation Code Description Data Nikia rce(s) Supporting Document(s) triglycerides level 157 mg/dL <150 Above high normal Triglycer ides Level MALIK ([facility]) cholesterol level 160 mg/dL <200 Cholesterol Level MALIK ([facility]) HDL cholesterol 41 mg/dL >40 HDL Cholesterol ATHE ([facility]) non-HDL-C 119 mg/dL Non-hdl-c MALIK ([facility]) Cholesterol in LDL [Mass/volume] in Serum or Plasma 88 mg/dL <1 00 LDL Cholesterol MALIK ([facility]) cholesterol risk ratio <5 Cholesterol R isk Ratio MALIK ([facility]) ID Date Data Source [id number] 08/24/2020 10:03:00 AM EDT MALIK ([facility]) Name Value Range Interpretation Code Description Data Nikia rce(s) Supporting Document(s) glucose, fasting 362 mg/dL 70-100 Above high normal Glucose, Fas ting MALIK ([facility]) blood urea nitrogen 14 mg/dL 7-18 Blood Urea Nitro gen MALIK ([facility]) creatinine for GFR 0.87 mg/dL 0.55-1.30 Creatinine for GF R MALIK ([facility]) glomerular filtration rate > 60.0 >58 Glomerula r Filtration Rate MALIK ([facility]) potassium serum 4.6 mEq/L 3.5-5.1 Potassium Serum ATHE ([facility]) sodium level 133 mEq/L 136-145 Below low normal Sodium Level ATHE NA ([facility]) chloride level 100 mEq/L 98-107 Chloride Level MALIK ([facility]) carbon dioxide level 25 mEq/L 21-32 Carbon Dioxide Level MALIK ([facility]) calcium level 8.9 mg/dL 8.5-10.1 Calcium Level MALIK ( [facility]) anion gap 8 mEq/L 8-16 Anion Gap MALIK ([facility]) AST/SGOT 15 U/L 7-37 AST/SGOT MALIK ([facility]) ALT/SGPT 21 U/L 12-78 ALT/SGPT MALIK ([facility]) bilirubin,total 0.2 mg/dL 0.2-1.0 Bilirubin,total ATHE NA ([facility]) alkaline phosphatase 87 U/L 45-117 Alkaline Phosph atase MALIK ([facility]) albumin 3.3 gm/dL 3.2-5.2 Albumin MALIK ([facility]) total protein 7.3 gm/dL 6.4-8.2 Total Protein MALIK ( [facility]) albumin/globulin ratio 1.2-2.2 Below low normal Albumin /globulin Ratio MALIK ([facility]) ID Date Data Source [id number] 08/24/2020 10:03:00 AM EDT MALIK ([facility]) Name Value Range Interpretation Code Description Data Nikia rce(s) Supporting Document(s) Hemoglobin A1c/Hemoglobin.total in Blood 12.2 % Hemoglobin a1C MALIK ([facility]) estimated average glucose 303 mg/dL 60-110 Above high norm al Estimated Average Glucose MALIK ([facility]) ID Date Data Source [id number] 08/24/2020 10:03:00 AM EDT MALIK ([facility]) Name Value Range Interpretation Code Description Data Nikia rce(s) Supporting Document(s) white blood count 4.5 10 4.0-10.0 White Blood Count MALIK ([facility]) red blood count 4.77 10 4.00-5.40 Red Blood Count ATHE NA ([facility]) hemoglobin 11.6 g/dL 12.0-15.5 Below low normal Hemoglobin MALIK ( [facility]) hematocrit 38.1 % 36.0-47.0 Hematocrit MALIK ([facility]) mean corpuscular hemoglobin 24.3 pg 27.0-33.0 Below low nor mal Mean Corpuscular Hemoglobin MALIK ([facility]) mean corpuscular volume 79.9 fL 80.0-96.0 Below low normal Mean Corpuscular Volume MALIK ([facility]) mean corpuscular HGB conc 30.4 g/dL 32.0-36.5 Below low dimple l Mean Corpuscular HGB Conc MALIK ([facility]) red cell distribution width 16.2 % 11.5-14.5 Above high no rmal Red Cell Distribution Width MALIK ([facility]) platelet count, automated 276 10 150-450 Platelet C ount, Automated MALIK ([facility]) nucleated red blood cell % 0.0 % 0-0 Nucleated Red Blood Cell % MALIK ([facility]) ID Date Data Source [id number] 08/22/2020 10:04:00 AM EDT MALIK ([facility]) Name Value Range Interpretation Code Description Data Nikia rce(s) Supporting Document(s) HCG negative Hcg MALIK ([facility]) ID Date Data Source [id number] 08/22/2020 10:04:00 AM EDT MALIK ([facility]) Name Value Range Interpretation Code Description Data Nikia rce(s) Supporting Document(s) HCG negative Hcg MALIK ([facility]) ID Date Data Source [id number] 08/22/2020 10:04:00 AM EDT MALIK ([facility]) Name Value Range Interpretation Code Description Data Nikia rce(s) Supporting Document(s) HCG negative Hcg MALIK ([facility]) ID Date Data Source [id number] 08/22/2020 10:04:00 AM EDT MALIK ([facility]) Name Value Range Interpretation Code Description Data Nikia rce(s) Supporting Document(s) HCG negative Hcg MALIK ([facility]) ID Date Data Source [id number] 08/17/2020 03:10:00 PM EDT DRY [facility]K ([facility]) Name Value Range Interpretation Code Description Data Nikia rce(s) Supporting Document(s) GC DNA probe negative negative GC DNA Probe MALIK ([facility]) chlamydia DNA probe negative negative Chlamydia DNA Pr obe [facility]Y [facility]K ([facility]) ID Date Data Source [id number] 08/17/2020 03:10:00 PM EDT DRY [place]K ([facility]) Name Value Range Interpretation Code Description Data Nikia rce(s) Supporting Document(s) ID Date Data Source [id number] 08/17/2020 03:10:00 PM EDT DRY [place]K ([facility]) Name Value Range Interpretation Code Description Data Nikia rce(s) Supporting Document(s) trichomonas vaginalis (amp) not detected negative Tricho monas Vaginalis (Amp) DRY [place]K ([facility]) ID Date Data Source [id number] 08/17/2020 03:10:00 PM EDT DRY [place]K ([facility]) Name Value Range Interpretation Code Description Data Nikia rce(s) Supporting Document(s) creatinine, urine 113.0 mg/dL Creatinine, Urine MALIK ([facility]) malb urine siemens 26.1 mg/L Malb Urine Siemen s MALIK ([facility]) angelo/creat ratio 23.0 mcg/mg 0.0-30.0 Angelo/creat Ratio ATH PRAKASH ([facility]) ID Date Data Source [id number] 08/17/2020 03:10:00 PM EDT [facility]) Name Value Range Interpretation Code Description Data Nikia rce(s) Supporting Document(s) appearance, urine hazy clear Appearance, Urine DRY [place]K ([facility]) specific gravity urine auto 1.002-1.035 Specifi c [place] Urine Auto DRY FORK ([facility]) pH,urine 5.0 units 5.0-9.0 pH,urine MALIK ([facility]) color, urine yellow yellow Color, Urine MALIK ([facility]) protein, urine auto negative negative Protein, Urine A uto MALIK ([facility]) ketone, urine auto negative negative Ketone, Urine Aut o MALIK ([facility]) glucose, urine (UA) auto 3+ negative Above high normal Gluc ose, Urine (UA) Auto MALIK ([facility]) urobilinogen, urine auto 0.2 mg/dL 0.0-2.0 Urobilinoge n, Urine Auto MALIK ([facility]) leukocyte esterase, urine auto 1+ negative Above high normal Leukocyte Esterase, Urine Auto MALIK ([facility]) bilirubin, urine auto negative negative Bilirubin, Uri ne Auto MALIK ([facility]) blood, urine blood negative negative Blood, Urine Bloo d MALIK ([facility]) nitrite, urine auto negative negative Nitrite, Urine A uto MALIK ([facility]) WBC, urine auto 4 /hpf 0-3 Above high normal WBC, Urine Au to MALIK ([facility]) bacteria, urine auto negative negative Bacteria, Urine Auto MALIK ([facility]) hyaline cast, urine auto 0 /lpf 0-1 Hyaline Anton t, Urine Auto MALIK ([facility]) squamous epithelial cell ur AU 12 /hpf 0-6 Squam ous Epithelial Cell Ur AU MALIK ([facility]) RBC, urine auto 3 /hpf 0-3 RBC, Urine Auto ATHE NA ([facility]) ID Date Data Source [id number] 08/17/2020 03:10:00 PM EDT MALIK ([facility]) Name Value Range Interpretation Code Description Data Nikia rce(s) Supporting Document(s) GC DNA probe negative negative GC DNA Probe MALIK ([facility]) chlamydia DNA probe negative negative Chlamydia DNA Pr obe MALIK ([facility]) ID Date Data Source [id number] 08/17/2020 03:10:00 PM EDT MALIK ([facility]) Name Value Range Interpretation Code Description Data Nikia rce(s) Supporting Document(s) ID Date Data Source [id number] 08/17/2020 03:10:00 PM EDT DRY FORK ([facility]) Name Value Range Interpretation Code Description Data Nikia rce(s) Supporting Document(s) trichomonas vaginalis (amp) not detected negative Tricho monas Vaginalis (Amp) DRY [place]K ([facility]) ID Date Data Source [id number] 08/17/2020 03:10:00 PM EDT DRY [place]K ([facility]) Name Value Range Interpretation Code Description Data Nikia rce(s) Supporting Document(s) malb urine siemens 26.1 mg/L Malb Urine Siemen s MALIK ([facility]) angelo/creat ratio 23.0 mcg/mg 0.0-30.0 Angelo/creat Ratio ATH PRAKASH ([facility]) creatinine, urine 113.0 mg/dL Creatinine, Urine MALIK ([facility]) ID Date Data Source [id number] 08/17/2020 03:10:00 PM EDT DRY [place]K ([facility]) Name Value Range Interpretation Code Description Data Nikia rce(s) Supporting Document(s) appearance, urine hazy clear Appearance, Urine MALIK ([facility]) color, urine yellow yellow Color, Urine MALIK ([facility]) ketone, urine auto negative negative Ketone, Urine Aut o MALIK ([facility]) protein, urine auto negative negative Protein, Urine A uto MALIK ([facility]) glucose, urine (UA) auto 3+ negative Above high normal Gluc ose, Urine (UA) Auto MALIK ([facility]) specific gravity urine auto 1.002-1.035 Specifi c [place] Urine Auto DRY [place]K ([facility]) pH,urine 5.0 units 5.0-9.0 pH,urine MALIK ([facility]) urobilinogen, urine auto 0.2 mg/dL 0.0-2.0 Urobilinoge n, Urine Auto MALIK ([facility]) leukocyte esterase, urine auto 1+ negative Above high normal Leukocyte Esterase, Urine Auto MALIK ([facility]) bilirubin, urine auto negative negative Bilirubin, Uri ne Auto DRY [place]K ([facility]) blood, urine blood negative negative Blood, Urine Bloo d MALIK ([facility]) nitrite, urine auto negative negative Nitrite, Urine A uto MALIK ([facility]) bacteria, urine auto negative negative Bacteria, Urine Auto [place] ([facility]) hyaline cast, urine auto 0 /lpf 0-1 Hyaline Anton t, Urine Auto [facility] [place] ([facility]) squamous epithelial cell ur AU 12 /hpf 0-6 Squam ous Epithelial Cell Ur AU [facility]Y [place]K ([facility]) RBC, urine auto 3 /hpf 0-3 RBC, Urine Auto ATHE NA ([facility]) WBC, urine auto 4 /hpf 0-3 Above high normal WBC, Urine Au to MALIK ([facility]) ID Date Data Source [id number] 08/17/2020 03:10:00 PM EDT DRY [place]K ([facility]) Name Value Range Interpretation Code Description Data Nikia rce(s) Supporting Document(s) chlamydia DNA probe negative negative Chlamydia DNA Pr obe [facility] [place] ([facility]) GC DNA probe negative negative GC DNA Probe MALIK ([facility]) ID Date Data Source [id number] 08/17/2020 03:10:00 PM EDT DRY [place]K ([facility]) Name Value Range Interpretation Code Description Data Nikia rce(s) Supporting Document(s) ID Date Data Source [id number] 08/17/2020 03:10:00 PM EDT [facility]) Name Value Range Interpretation Code Description Data Nikia rce(s) Supporting Document(s) trichomonas vaginalis (amp) not detected negative Tricho monas Vaginalis (Amp) DRY [place]K ([facility]) ID Date Data Source [id number] 08/17/2020 03:10:00 PM EDT DRY [place]K ([facility]) Name Value Range Interpretation Code Description Data Nikia rce(s) Supporting Document(s) creatinine, urine 113.0 mg/dL Creatinine, Urine MALIK ([facility]) malb urine siemens 26.1 mg/L Malb Urine Siemen s MALIK ([facility]) angelo/creat ratio 23.0 mcg/mg 0.0-30.0 Angelo/creat Ratio ATH PRAKASH ([facility]) ID Date Data Source [id number] 08/17/2020 03:10:00 PM EDT DRY [place]K ([facility]) Name Value Range Interpretation Code Description Data Nikia rce(s) Supporting Document(s) appearance, urine hazy clear Appearance, Urine MALIK ([facility]) color, urine yellow yellow Color, Urine MALIK ([facility]) pH,urine 5.0 units 5.0-9.0 pH,urine DRY [place]K ([facility]) specific gravity urine auto 1.002-1.035 Specifi c [place] Urine Auto DRY [facility]K ([facility]) protein, urine auto negative negative Protein, Urine A aro [facility]Y [facility]K ([facility]) glucose, urine (UA) auto 3+ negative Above high normal Gluc ose, Urine (UA) Auto MALIK ([facility]) urobilinogen, urine auto 0.2 mg/dL 0.0-2.0 Urobilinoge n, Urine Auto MALIK ([facility]) ketone, urine auto negative negative Ketone, Urine Aut o [facility] [place] ([facility]) nitrite, urine auto negative negative Nitrite, Urine A uto [facility] [place] ([facility]) bilirubin, urine auto negative negative Bilirubin, Uri ne Auto DRY [place]K ([facility]) leukocyte esterase, urine auto 1+ negative Above high normal Leukocyte Esterase, Urine Auto MALIK ([facility]) blood, urine blood negative negative Blood, Urine Bloo d MALIK ([facility]) WBC, urine auto 4 /hpf 0-3 Above high normal WBC, Urine Au to MALIK ([facility]) RBC, urine auto 3 /hpf 0-3 RBC, Urine Auto ATHE NA ([facility]) bacteria, urine auto negative negative Bacteria, Urine Auto MALIK ([facility]) hyaline cast, urine auto 0 /lpf 0-1 Hyaline Anton t, Urine Auto MALIK ([facility]) squamous epithelial cell ur AU 12 /hpf 0-6 Squam ous Epithelial Cell Ur AU MALIK ([facility]) ID Date Data Source [id number] 08/17/2020 03:10:00 PM EDT [facility]) Name Value Range Interpretation Code Description Data Nikia rce(s) Supporting Document(s) chlamydia DNA probe negative negative Chlamydia DNA Pr obe [facility]Y [place] ([facility]) GC DNA probe negative negative GC DNA Probe MALIK ([facility]) ID Date Data Source [id number] 08/17/2020 03:10:00 PM EDT [facility]) Name Value Range Interpretation Code Description Data Nikia rce(s) Supporting Document(s) ID Date Data Source [id number] 08/17/2020 03:10:00 PM EDT [facility]) Name Value Range Interpretation Code Description Data Nikia rce(s) Supporting Document(s) trichomonas vaginalis (amp) not detected negative Tricho monas Vaginalis (Amp) [facility]) ID Date Data Source [id number] 08/17/2020 03:10:00 PM EDT [facility]) Name Value Range Interpretation Code Description Data Nikia rce(s) Supporting Document(s) malb urine siemens 26.1 mg/L Malb Urine Siemen s MALIK ([facility]) creatinine, urine 113.0 mg/dL Creatinine, Urine MALIK ([facility]) angelo/creat ratio 23.0 mcg/mg 0.0-30.0 Angelo/creat Ratio ATH PRAKASH ([facility]) ID Date Data Source [id number] 08/17/2020 03:10:00 PM EDT MALIK ([facility]) Name Value Range Interpretation Code Description Data Nikia rce(s) Supporting Document(s) color, urine yellow yellow Color, Urine MALIK ([facility]) pH,urine 5.0 units 5.0-9.0 pH,urine MALIK ([facility]) appearance, urine hazy clear Appearance, Urine MALIK ([facility]) ketone, urine auto negative negative Ketone, Urine Aut o MALIK ([facility]) glucose, urine (UA) auto 3+ negative Above high normal Gluc ose, Urine (UA) Auto MALIK ([facility]) specific gravity urine auto 1.002-1.035 Specifi c [place] Urine Auto MALIK ([facility]) protein, urine auto negative negative Protein, Urine A uto MALIK ([facility]) bilirubin, urine auto negative negative Bilirubin, Uri ne Auto MALIK ([facility]) urobilinogen, urine auto 0.2 mg/dL 0.0-2.0 Urobilinoge n, Urine Auto MALIK ([facility]) leukocyte esterase, urine auto 1+ negative Above high normal Leukocyte Esterase, Urine Auto MALIK ([facility]) nitrite, urine auto negative negative Nitrite, Urine A uto MALIK ([facility]) blood, urine blood negative negative Blood, Urine Bloo d MALIK ([facility]) RBC, urine auto 3 /hpf 0-3 RBC, Urine Auto ATHE NA ([facility]) WBC, urine auto 4 /hpf 0-3 Above high normal WBC, Urine Au to MALIK ([facility]) bacteria, urine auto negative negative Bacteria, Urine Auto MALIK ([facility]) hyaline cast, urine auto 0 /lpf 0-1 Hyaline Anton t, Urine Auto [facility] [place] ([facility]) squamous epithelial cell ur AU 12 /hpf 0-6 Squam ous Epithelial Cell Ur AU MALIK ([facility]) ID Date Data Source [id number] 08/17/2020 03:10:00 PM EDT DRY [place]K ([facility]) Name Value Range Interpretation Code Description Data Nikia rce(s) Supporting Document(s) chlamydia DNA probe negative negative Chlamydia DNA Pr obe DRY [facility]K ([facility]) GC DNA probe negative negative GC DNA Probe DRY FORK ([facility]) ID Date Data Source [id number] 08/17/2020 03:10:00 PM EDT DRY [place]K ([facility]) Name Value Range Interpretation Code Description Data Nikia rce(s) Supporting Document(s) trichomonas vaginalis (amp) not detected negative Tricho monas Vaginalis (Amp) DRY [place]K ([facility]) ID Date Data Source [id number] 08/17/2020 03:10:00 PM EDT DRY [facility]K ([facility]) Name Value Range Interpretation Code Description Data Nikia rce(s) Supporting Document(s) color, urine yellow yellow Color, Urine MALIK ([facility]) appearance, urine hazy clear Appearance, Urine DRY [facility]K ([facility]) specific gravity urine auto 1.002-1.035 Specifi c [place] Urine Auto DRY [facility]K ([facility]) protein, urine auto negative negative Protein, Urine A uto [facility]Y [facility]K ([facility]) pH,urine 5.0 units 5.0-9.0 pH,urine MALIK ([facility]) glucose, urine (UA) auto 3+ negative Above high normal Gluc ose, Urine (UA) Auto [facility] ([facility]) leukocyte esterase, urine auto 1+ negative Above high normal Leukocyte Esterase, Urine Auto [facility] ([facility]) ketone, urine auto negative negative Ketone, Urine Aut o [facility] ([facility]) nitrite, urine auto negative negative Nitrite, Urine A uto MALIK ([facility]) urobilinogen, urine auto 0.2 mg/dL 0.0-2.0 Urobilinoge n, Urine Auto MALIK ([facility]) bilirubin, urine auto negative negative Bilirubin, Uri ne Auto MALIK ([facility]) RBC, urine auto 3 /hpf 0-3 RBC, Urine Auto ATHE NA ([facility]) bacteria, urine auto negative negative Bacteria, Urine Auto MALIK ([facility]) WBC, urine auto 4 /hpf 0-3 Above high normal WBC, Urine Au to MALIK ([facility]) blood, urine blood negative negative Blood, Urine Bloo d [facility] ([facility]) hyaline cast, urine auto 0 /lpf 0-1 Hyaline Anton t, Urine Auto [facility] ([facility]) squamous epithelial cell ur AU 12 /hpf 0-6 Squam ous Epithelial Cell Ur AU [facility] ([facility]) Procedure Social History No Information Vital Signs ID Date Data Source UNK Name Value Range Interpretation Code Description Data Source(s) Diastolic blood pressure 94 mm[Hg] 94 mm[Hg] MALIK ([facility]) Diastolic blood pressure 94 mm[Hg] 94 mm[Hg] MALIK ([facility]) Body height 62 [in_i] 62 [in_i] AMLIK ([facility]) Body mass index (BMI) [Ratio] 50.2 kg/m2 50.2 k g/m2 MALIK ([facility]) Systolic blood pressure 158 mm[Hg] 158 mm[Hg] A [facility] ([facility]) Systolic blood pressure 148 mm[Hg] 148 mm[Hg] [facility] Body weight 4388 [oz_av] 4388 [oz_av] MALIK ([facility]) Diastolic blood pressure 94 mm[Hg] 94 mm[Hg] MALIK ([facility]) Diastolic blood pressure 94 mm[Hg] 94 mm[Hg] MALIK ([facility]) Body height 62 [in_i] 62 [in_i] MALIK ([facility]) Body mass index (BMI) [Ratio] 50.2 kg/m2 50.2 k g/m2 MALIK ([facility]) Systolic blood pressure 158 mm[Hg] 158 mm[Hg] A THENA ([facility]) Systolic blood pressure 148 mm[Hg] 148 mm[Hg] A THENA ([facility]) Body weight 4388 [oz_av] 4388 [oz_av] MALIK ([facility]) Diastolic blood pressure 94 mm[Hg] 94 mm[Hg] MALIK ([facility]) Diastolic blood pressure 95 mm[Hg] 95 mm[Hg] MALIK ([facility]) Body height 62 [in_i] 62 [in_i] MALIK ([facility]) Body mass index (BMI) [Ratio] 51.2 kg/m2 51.2 k g/m2 MALIK ([facility]) Systolic blood pressure 144 mm[Hg] 144 mm[Hg] A THENA ([facility]) Systolic blood pressure 139 mm[Hg] 139 mm[Hg] A THENA ([facility]) Body weight 4480 [oz_av] 4480 [oz_av] MALIK ([facility]) Diastolic blood pressure 94 mm[Hg] 94 mm[Hg] MALIK ([facility]) Diastolic blood pressure 95 mm[Hg] 95 mm[Hg] MALIK ([facility]) Body height 62 [in_i] 62 [in_i] MALIK ([facility]) Body mass index (BMI) [Ratio] 51.2 kg/m2 51.2 k g/m2 MALIK ([facility]) Systolic blood pressure 144 mm[Hg] 144 mm[Hg] A THENA ([facility]) Systolic blood pressure 139 mm[Hg] 139 mm[Hg] A THENA ([facility]) Body weight 4480 [oz_av] 4480 [oz_av] MALIK ([facility]) Diastolic blood pressure 94 mm[Hg] 94 mm[Hg] MALIK ([facility]) Diastolic blood pressure 95 mm[Hg] 95 mm[Hg] MALIK ([facility]) Body height 62 [in_i] 62 [in_i] MALIK ([facility]) Body mass index (BMI) [Ratio] 51.2 kg/m2 51.2 k g/m2 MALIK ([facility]) Systolic blood pressure 144 mm[Hg] 144 mm[Hg] A THENA ([facility]) Systolic blood pressure 139 mm[Hg] 139 mm[Hg] A THENA ([facility]) Body weight 4480 [oz_av] 4480 [oz_av] MALIK ([facility]) Diastolic blood pressure 93 mm[Hg] 93 mm[Hg] MALIK ([facility]) Diastolic blood pressure 79 mm[Hg] 79 mm[Hg] MALIK ([facility]) Body height 62 [in_i] 62 [in_i] MALIK ([facility]) Body mass index (BMI) [Ratio] 49.1 kg/m2 49.1 k g/m2 MALIK ([facility]) Systolic blood pressure 143 mm[Hg] 143 mm[Hg] A THENA ([facility]) Systolic blood pressure 157 mm[Hg] 157 mm[Hg] A THENA ([facility]) Body weight 4296 [oz_av] 4296 [oz_av] MALIK ([facility]) Diastolic blood pressure 93 mm[Hg] 93 mm[Hg] MALIK ([facility]) Diastolic blood pressure 79 mm[Hg] 79 mm[Hg] MALIK ([facility]) Body height 62 [in_i] 62 [in_i] MALIK ([facility]) Body mass index (BMI) [Ratio] 49.1 kg/m2 49.1 k g/m2 MALIK ([facility]) Systolic blood pressure 143 mm[Hg] 143 mm[Hg] A THENA ([facility]) Systolic blood pressure 157 mm[Hg] 157 mm[Hg] A THENA ([facility]) Body weight 4296 [oz_av] 4296 [oz_av] MALIK ([facility]) Diastolic blood pressure 93 mm[Hg] 93 mm[Hg] MALIK ([facility]) Diastolic blood pressure 79 mm[Hg] 79 mm[Hg] MALIK ([facility]) Body height 62 [in_i] 62 [in_i] MALIK ([facility]) Body mass index (BMI) [Ratio] 49.1 kg/m2 49.1 k g/m2 MALIK ([facility]) Systolic blood pressure 143 mm[Hg] 143 mm[Hg] A THENA ([facility]) Systolic blood pressure 157 mm[Hg] 157 mm[Hg] A [facility] ([facility]) Body weight 4296 [oz_av] 4296 [oz_av] MALIK ([facility]) Diastolic blood pressure 93 mm[Hg] 93 mm[Hg] MALIK ([facility]) Diastolic blood pressure 79 mm[Hg] 79 mm[Hg] MALIK ([facility]) Body height 62 [in_i] 62 [in_i] MALIK ([facility]) Body mass index (BMI) [Ratio] 49.1 kg/m2 49.1 k g/m2 MALIK ([facility]) Systolic blood pressure 143 mm[Hg] 143 mm[Hg] A THENA ([facility]) Systolic blood pressure 157 mm[Hg] 157 mm[Hg] A THENA ([facility]) Body weight 4296 [oz_av] 4296 [oz_av] MALIK ([facility]) Diastolic blood pressure 79 mm[Hg] 79 mm[Hg] MALIK ([facility]) Body height 62 [in_i] 62 [in_i] MALIK ([facility]) Body mass index (BMI) [Ratio] 49.1 kg/m2 49.1 k g/m2 MALIK ([facility]) Systolic blood pressure 143 mm[Hg] 143 mm[Hg] A THENA ([facility]) Systolic blood pressure 157 mm[Hg] 157 mm[Hg] A THENA ([facility]) Diastolic blood pressure 93 mm[Hg] 93 mm[Hg] MALIK ([facility]) Body weight 4296 [oz_av] 4296 [oz_av] MALIK ([facility]) Patient Treatment Plan of Care Planned Activity Planned Date Details Description Data Source (s) amoxicillin 875mg- take 1 tablet by mouth every 12hrs for the next 10 days 01/18/2021 12:00:00 AM EDT MALIK ([facility]) Metformin hydrochloride 1000 MG Oral Tablet 10/18/2020 12:00:00 AM EDT DRY FORK ([facility]) Metformin hydrochloride 1000 MG Oral Tablet 10/18/2020 12:00:00 AM EDT [facility] ([facility]) Fluconazole 150 MG Oral Tablet [Diflucan] DRY FORK ([facility])
== END 2021-01-18 17:11 | disposition left against medical advice (07) ==
LOC: M ED 13:49
DX: Z53.21 Procedure and treatment not carried out due to patient leaving prior to being seen by health care provider (principal)

== ENCOUNTER 2022-07-19 12:30 | Emergency (ER) | payer MEDICAID, OTHER ==
[~2022-07-19] VITALS: Ht 157.5 cm; Wt 129.5 kg
[~2022-07-19 12:30] MED LIST changes: +CLIN150C17 PO; +METF10004 PO; +PROB1CAP10 PO; +TRUL0.5I SC; +TRUL0.5I SQ
[2022-07-19 13:59] LABS: BASO % 0.4 % (0.0-1.0); EOS # 0.1 10^3/uL (0.0-0.5); EOS % 1.7 % (0.0-3.0); HEMATOCRIT 34.2 % (36.0-47.0); HEMOGLOBIN 10.5 g/dl (12.0-15.5); LYMPH # 1.9 10^3/uL (1.5-5.0); LYMPH % 36.4 % (24.0-44.0); MEAN CORPUSCULAR HEMOGLOBIN 23.6 pg (27.0-33.0); MEAN CORPUSCULAR HGB CONC 30.7 g/dl (32.0-36.5); MONO # 0.4 10^3/uL (0.0-0.8); NEUTROPHILS # 2.9 10^3/uL (1.5-8.5); NEUTROPHILS % 53.9 % (36.0-66.0); PLATELET COUNT, AUTOMATED 276 10^3/uL (150-450); RED BLOOD COUNT 4.44 10^6/uL (4.00-5.40); WHITE BLOOD COUNT 5.3 10^3/uL (4.0-10.0)
[2022-07-19 14:22] LABS: URIC ACID 4.4 MG/DL (3.1-7.8)
[2022-07-19 14:24] LABS: C REACTIVE PROTEIN QUANTITATIV 1.8 MG/DL (<1.0)
[2022-07-19] MEDS ORDERED: KETOROLAC 30 MG/ML 1ML VIAL IV ONE (14:35)
[2022-07-19] MEDS ORDERED: IBUP80TA PO (14:37)
[2022-07-19 14:39] LABS: ERYTHROCYTE SEDIMENTATION RATE 117 mm/hr (0-20)
[2022-07-19 15:12] VITALS: BP 162/70
== END 2022-07-19 15:15 | disposition home or self-care (01) ==
LOC: M ED 12:30
DX: M72.2 Plantar fascial fibromatosis (principal); I50.9 Heart failure, unspecified; E11.9 Type 2 diabetes mellitus without complications; Z79.4 Long term (current) use of insulin
CPT/HCPCS: 73620; 80047; 83880; 84550; 85025; 85652; 86140; 96374; 99284; J1885

== ENCOUNTER → 2022-08-11 | Outpatient (REF) | payer OTHER ==
[2022-08-11 17:11] LABS: HEMATOCRIT 35.9 % (36.0-47.0); HEMOGLOBIN 10.6 g/dl (12.0-15.5); MEAN CORPUSCULAR HEMOGLOBIN 23.6 pg (27.0-33.0); MEAN CORPUSCULAR HGB CONC 29.5 g/dl (32.0-36.5); PLATELET COUNT, AUTOMATED 368 10^3/uL (150-450); RED BLOOD COUNT 4.49 10^6/uL (4.00-5.40); WHITE BLOOD COUNT 5.1 10^3/uL (4.0-10.0)
[2022-08-11 17:19] LABS: ALBUMIN 3.5 G/DL (3.2-5.2); ALKALINE PHOSPHATASE 92 U/L (46-116); ALT/SGPT 18 U/L (7.0-40); AST/SGOT 14 U/L (<34); BILIRUBIN,TOTAL 0.3 MG/DL (0.3-1.2); BLOOD UREA NITROGEN 16 MG/DL (9-23); CARBON DIOXIDE LEVEL 27 MMOL/L (20-31); CHLORIDE LEVEL 104 MMOL/L (98-107); CREATININE FOR GFR 0.88 MG/DL (0.55-1.30); GLOMERULAR FILTRATION RATE > 60.0 (>58); GLUCOSE, FASTING 235 MG/DL (60-100); IRON (FE) 21 UG/DL (50-170); PERCENT SATURATION 5.5 % (13.2-45.0); POTASSIUM SERUM 4.5 MMOL/L (3.5-5.1); SODIUM LEVEL 133 MMOL/L (136-145); TOTAL IRON BINDING CAPACITY 380 UG/DL (250-425); TOTAL PROTEIN 7.4 G/DL (5.7-8.2)
[2022-08-11 17:21] LABS: FERRITIN 3.6 NG/ML (7.3-270.7)
[2022-08-11 17:22] LABS: TOTAL 25(OH) VITAMIN D 23.3 NG/ML (20.0-100.0)
== END ==
LOC: M LAB REF 16:22
PROVIDERS: ATTEND Physician Assistant
DX: R60.0 Localized edema (principal); D50.9 Iron deficiency anemia, unspecified; E11.65 Type 2 diabetes mellitus with hyperglycemia

== ENCOUNTER → 2022-08-14 | Outpatient (REF) | payer OTHER ==
[2022-08-14 17:19] LABS: CREATININE, URINE 74.2 MG/DL
[2022-08-14 17:20] LABS: MAU/CREAT RATIO 6.7 MCG/MG (0.0-30.0)
== END ==
LOC: M LAB REF 16:27
PROVIDERS: ATTEND Physician Assistant
DX: E11.65 Type 2 diabetes mellitus with hyperglycemia (principal)

== ENCOUNTER → 2022-10-20 | Outpatient (CLI) | payer OTHER ==
[2022-10-20 11:31] LABS: HEMATOCRIT 36.9 % (36.0-47.0); HEMOGLOBIN 11.2 g/dl (12.0-15.5); MEAN CORPUSCULAR HEMOGLOBIN 24.4 pg (27.0-33.0); MEAN CORPUSCULAR HGB CONC 30.4 g/dl (32.0-36.5); MEAN CORPUSCULAR VOLUME 80.4 fl (80.0-96.0); PLATELET COUNT, AUTOMATED 287 10^3/uL (150-450); RED BLOOD COUNT 4.59 10^6/uL (4.00-5.40)
[2022-10-20 11:53] LABS: MAU/CREAT RATIO 10.7 MCG/MG (0.0-30.0)
[2022-10-20 11:54] LABS: IRON (FE) 26 UG/DL (50-170); PERCENT SATURATION 7.2 % (13.2-45.0); TOTAL IRON BINDING CAPACITY 359 UG/DL (250-425)
[2022-10-20 11:57] LABS: ALBUMIN 3.3 G/DL (3.2-5.2); ALKALINE PHOSPHATASE 84 U/L (46-116); ALT/SGPT 12 U/L (7.0-40); AST/SGOT < 8 U/L (<34); BILIRUBIN,TOTAL 0.3 MG/DL (0.3-1.2); BLOOD UREA NITROGEN 12 MG/DL (9-23); CARBON DIOXIDE LEVEL 27 MMOL/L (20-31); CHLORIDE LEVEL 100 MMOL/L (98-107); CHOLESTEROL LEVEL 139 MG/DL (<200); CHOLESTEROL RISK RATIO 4.02 (<5); CREATININE FOR GFR 0.66 MG/DL (0.55-1.30); FERRITIN 6.8 NG/ML (7.3-270.7); GLOMERULAR FILTRATION RATE > 60.0 (>58); GLUCOSE, FASTING 226 MG/DL (60-100); HDL CHOLESTEROL 34.5 MG/DL (>40); LDL CHOLESTEROL 78.5 MG/DL (<100); NON-HDL-C 104.5 MG/DL; POTASSIUM SERUM 4.2 MMOL/L (3.5-5.1); SODIUM LEVEL 135 MMOL/L (136-145); THYROID STIMULATING HORMONE 1.544 uIU/ML (0.55-4.78); TRIGLYCERIDES LEVEL 130 MG/DL (<150)
[2022-10-20 11:58] LABS: HEMOGLOBIN A1c 11.2 % (4.0-6.0)
== END ==
LOC: M LAB 10:06
PROVIDERS: ATTEND Physician Assistant
DX: E61.1 Iron deficiency (principal)

== ENCOUNTER → 2022-12-01 | Outpatient (REF) | payer OTHER ==
[2022-12-01 18:01] LABS: BLOOD UREA NITROGEN 11 MG/DL (9-23); CALCIUM LEVEL 8.7 MG/DL (8.5-10.1); CARBON DIOXIDE LEVEL 28 MMOL/L (20-31); CHLORIDE LEVEL 101 MMOL/L (98-107); CHOLESTEROL LEVEL 152 MG/DL (<200); CREATININE FOR GFR 0.65 MG/DL (0.55-1.30); GLOMERULAR FILTRATION RATE > 60.0 (>58); GLUCOSE, FASTING 285 MG/DL (60-100); HDL CHOLESTEROL 38.9 MG/DL (>40); LDL CHOLESTEROL 86.5 MG/DL (<100); NON-HDL-C 113.1 MG/DL; POTASSIUM SERUM 4.4 MMOL/L (3.5-5.1); SODIUM LEVEL 135 MMOL/L (136-145); TRIGLYCERIDES LEVEL 133 MG/DL (<150)
[2022-12-01 18:02] LABS: FERRITIN 5.5 NG/ML (7.3-270.7); IRON (FE) 32 UG/DL (50-170); PERCENT SATURATION 8.8 % (13.2-45.0); TOTAL IRON BINDING CAPACITY 365 UG/DL (250-425)
[2022-12-01 18:40] LABS: HEMOGLOBIN A1c 11.9 % (4.0-6.0)
== END ==
LOC: M LAB REF 16:48
PROVIDERS: ATTEND Physician Assistant
DX: E11.65 Type 2 diabetes mellitus with hyperglycemia (principal); D50.9 Iron deficiency anemia, unspecified

== ENCOUNTER 2023-01-07 12:17 | Inpatient (IN) | payer OTHER ==
[~2023-01-07] VITALS: Ht 157.5 cm; Wt 129.8 kg
[2023-01-07] MEDS: CLOTRIMAZOLE 1% VAG CR 45 GM PV SCH ×2 (02:00→22:11)
[~2023-01-07 12:17] MED LIST changes: -ATOR1TAB19 PO; -DULA3PEN SC; -FERR325T19 PO; -PROBCAP14 PO; -VITA200016 PO
[2023-01-07 12:43] LABS: BASO % 0.1 % (0.0-1.0); EOS % 0.3 % (0.0-3.0); HEMATOCRIT 36.8 % (36.0-47.0); HEMOGLOBIN 11.3 g/dl (12.0-15.5); LYMPH # 1.2 10^3/uL (1.5-5.0); LYMPH % 15.5 % (24.0-44.0); MEAN CORPUSCULAR HEMOGLOBIN 24.9 pg (27.0-33.0); MEAN CORPUSCULAR HGB CONC 30.7 g/dl (32.0-36.5); MEAN CORPUSCULAR VOLUME 81.2 fl (80.0-96.0); MONO # 0.5 10^3/uL (0.0-0.8); MONO % 6.9 % (2.0-8.0); NEUTROPHILS # 5.7 10^3/uL (1.5-8.5); NEUTROPHILS % 76.7 % (36.0-66.0); PLATELET COUNT, AUTOMATED 300 10^3/uL (150-450); RED BLOOD COUNT 4.53 10^6/uL (4.00-5.40); WHITE BLOOD COUNT 7.4 10^3/uL (4.0-10.0)
[2023-01-07] MEDS ORDERED: ACETAMINOPHEN TAB 650MG DOSE (2X325MG) PO ONE ×2 (12:45→16:45)
[2023-01-07 13:08] LABS: BLOOD UREA NITROGEN 10 MG/DL (9-23); CALCIUM LEVEL 9.1 MG/DL (8.5-10.1); CARBON DIOXIDE LEVEL 29 MMOL/L (20-31); CHLORIDE LEVEL 93 MMOL/L (98-107); CK-MB VALUE MASS < 1.0 NG/ML (<3.6); CPK CREATINE PHOSPHOKINASE 76 U/L (34-145); GLOMERULAR FILTRATION RATE > 60.0 (>58); GLUCOSE, FASTING 415 MG/DL (60-100); MB/CK RELATIVE INDEX 1.31 (< OR =4); POTASSIUM SERUM 4.3 MMOL/L (3.5-5.1); SODIUM LEVEL 131 MMOL/L (136-145)
[2023-01-07] MEDS ORDERED: NS 1,000 ML IV ONE ×2 (15:05→17:05)
[2023-01-07] MEDS ORDERED: IBUPROFEN 600MG TAB PO ONE (15:05)
[2023-01-07] MEDS ORDERED: ISOVUE-370 76% 100ML VIAL As Ordered ONE (15:07)
[2023-01-07] MEDS ORDERED: LevoFLOXacin IV 750 MG in IV 1 EA IV ONE (16:10)
[2023-01-07] MEDS ORDERED: SENOKOT S TAB PO PRN (16:20)
[2023-01-07] MEDS ORDERED: NS 2,000 ML IV ONE (16:20)
[2023-01-07] MEDS ORDERED: PERCOCET 5MG/325MG TAB PO PRN (16:20)
[2023-01-07] MEDS ORDERED: ONDANSETRON 4MG 2ML VIAL IV PRN (16:20)
[2023-01-07] MEDS ORDERED: MIRALAX *UNIT DOSE* 17GM PACKET PO PRN (16:20)
[2023-01-07] MEDS ORDERED: VITA200016 PO (16:24)
[2023-01-07] MEDS ORDERED: FERR325T19 PO (16:24)
[2023-01-07] MEDS ORDERED: DULA3PEN SC (16:24)
[2023-01-07] MEDS ORDERED: PROBCAP14 PO (16:24)
[2023-01-07] MEDS ORDERED: ATOR1TAB19 PO (16:24)
[2023-01-07] MEDS ORDERED: HOME MED LIST COMPLETE! XX SCH (16:25)
[2023-01-07] MEDS ORDERED: amLODIPine 5 MG TAB PO ONE (16:30)
[2023-01-07] MEDS ORDERED: DEXTROSE 50% 50ML SYRINGE IV PRN (16:30)
[2023-01-07] MEDS ORDERED: GLUCAGON INJ 1MG VIAL SC PRN (16:30)
[2023-01-07] MEDS ORDERED: HYDROMORPHONE HCL 0.5 MG/ 0.5 ML SYRINGE IV ONE (16:30)
[2023-01-07] MEDS ORDERED: GLUCOSE 4GM CHEW TABLET PO PRN (16:30)
[2023-01-07] MEDS ORDERED: LEVEMIR (INSULIN DETEMIR) 1 UNITS/0.01ML SC ONE (17:00)
[2023-01-07] MEDS: LACTOBACILLUS ACIDOPHILUS CAP (BACID) PO SCH (17:48)
[2023-01-07 17:54] LABS: HEMOGLOBIN A1c 11.8 % (4.0-6.0)
[2023-01-07] MEDS ORDERED: cefTRIAXone SOD 2 GM in D5W MINI-BAG PLUS 50 ML IV ONE (18:00)
[2023-01-07] MEDS: INSULIN LISPRO (NovoLOG) PER UNIT SC SCH ×3 (18:03→21:13)
[2023-01-07] MEDS: NS 1,000 ML IV SCH (19:00)
[2023-01-07 20:42] VITALS: BP 152/56; TEMP 98; O2SAT 94
[2023-01-07] MEDS ORDERED: CLOTRIMAZOLE 1% TOPICAL CREAM 30GM TOP SCH (21:00)
[2023-01-07] MEDS ORDERED: ENOXAPARIN 40MG/0.4ML SYRINGE (J1650 PER 10MG) SC ONE (21:00)
[2023-01-07] MEDS: KETOROLAC 30 MG/ML 1ML VIAL IV SCH (21:11)
[2023-01-08] VITALS (8 sets, daily range): BP systolic 139–182; BP diastolic 62–84; TEMP 99.8–102.3; O2SAT 97–100
[2023-01-08] MEDS: KETOROLAC 30 MG/ML 1ML VIAL IV SCH ×4 (03:34→20:30)
[2023-01-08] MEDS: ACETAMINOPHEN TAB 650MG DOSE (2X325MG) PO PRN ×2 (04:06→20:29)
[2023-01-08] MEDS: NS 1,000 ML IV SCH (05:36)
[2023-01-08] MEDS ORDERED: LEVEMIR (INSULIN DETEMIR) 1 UNITS/0.01ML SC SCH ×2 (06:00→21:00)
[2023-01-08 06:34] LABS: BASO % 0.2 % (0.0-1.0); HEMATOCRIT 31.7 % (36.0-47.0); HEMOGLOBIN 9.8 g/dl (12.0-15.5); LYMPH # 0.8 10^3/uL (1.5-5.0); LYMPH % 10.3 % (24.0-44.0); MEAN CORPUSCULAR HEMOGLOBIN 24.8 pg (27.0-33.0); MEAN CORPUSCULAR HGB CONC 30.9 g/dl (32.0-36.5); MEAN CORPUSCULAR VOLUME 80.3 fl (80.0-96.0); MONO # 0.7 10^3/uL (0.0-0.8); MONO % 8.3 % (2.0-8.0); NEUTROPHILS # 6.6 10^3/uL (1.5-8.5); NEUTROPHILS % 80.7 % (36.0-66.0); PLATELET COUNT, AUTOMATED 253 10^3/uL (150-450); RED BLOOD COUNT 3.95 10^6/uL (4.00-5.40); WHITE BLOOD COUNT 8.2 10^3/uL (4.0-10.0)
[2023-01-08 06:58] LABS: BLOOD UREA NITROGEN 8 MG/DL (9-23); CARBON DIOXIDE LEVEL 27 MMOL/L (20-31); CHLORIDE LEVEL 100 MMOL/L (98-107); CREATININE FOR GFR 0.79 MG/DL (0.55-1.30); GLOMERULAR FILTRATION RATE > 60.0 (>58); GLUCOSE, FASTING 264 MG/DL (60-100); POTASSIUM SERUM 3.6 MMOL/L (3.5-5.1); SODIUM LEVEL 136 MMOL/L (136-145)
[2023-01-08] MEDS ORDERED: atenoloL 25 MG TAB PO SCH (09:00)
[2023-01-08] MEDS ORDERED: LEVEMIR (INSULIN DETEMIR) 1 UNITS/0.01ML SC ONE ×2 (09:30→12:00)
[2023-01-08] MEDS: ENOXAPARIN 40MG/0.4ML SYRINGE (J1650 PER 10MG) SC SCH ×2 (09:50→20:29)
[2023-01-08] MEDS: INSULIN LISPRO (NovoLOG) PER UNIT SC SCH ×7 (09:51→20:31)
[2023-01-08] MEDS: LACTOBACILLUS ACIDOPHILUS CAP (BACID) PO SCH ×3 (09:52→17:23)
[2023-01-08] MEDS ORDERED: INFLUENZA QUADRIVALENT PF VACCINE 0.5ML SYRINGE IM.IMMUN ONE (13:00)
[2023-01-08] MEDS ORDERED: atenoloL 25 MG TAB PO ONE (15:10)
[2023-01-08] MEDS ORDERED: cloNIDine 0.2 MG TAB PO ONE (17:00)
[2023-01-08] MEDS ORDERED: cloNIDine 0.1MG TABLET PO ONE (17:00)
[2023-01-08] MEDS ORDERED: NITROGLYCERIN 2% OINT 1 GM *U/D* PKT TOP ONE (17:15)
[2023-01-08] MEDS ORDERED: cefTRIAXone SOD 2 GM in D5W MINI-BAG PLUS 50 ML IV SCH (18:00)
[2023-01-08] MEDS: CLOTRIMAZOLE 1% VAG CR 45 GM PV SCH (20:31)
[2023-01-08] MEDS ORDERED: cloNIDine 0.1MG TABLET PO SCH (21:00)
[2023-01-08] MEDS ORDERED: atenoloL 50 MG TAB PO SCH (21:00)
[2023-01-08] MEDS ORDERED: INSULIN LISPRO (NovoLOG) PER UNIT SC SCH (21:00)
[2023-01-09] VITALS: BP 140/73; TEMP 96.3; O2SAT 97
[2023-01-09] MEDS: KETOROLAC 30 MG/ML 1ML VIAL IV SCH ×2 (02:13→09:05)
[2023-01-09 05:00] VITALS: BP 164/82; TEMP 98.9; O2SAT 93
[2023-01-09 06:24] LABS: BASO % 0.2 % (0.0-1.0); EOS % 0.4 % (0.0-3.0); HEMATOCRIT 31.8 % (36.0-47.0); HEMOGLOBIN 9.8 g/dl (12.0-15.5); LYMPH # 0.8 10^3/uL (1.5-5.0); LYMPH % 16.9 % (24.0-44.0); MEAN CORPUSCULAR HEMOGLOBIN 24.9 pg (27.0-33.0); MEAN CORPUSCULAR HGB CONC 30.8 g/dl (32.0-36.5); MEAN CORPUSCULAR VOLUME 80.7 fl (80.0-96.0); MONO # 0.3 10^3/uL (0.0-0.8); MONO % 6.8 % (2.0-8.0); NEUTROPHILS # 3.6 10^3/uL (1.5-8.5); NEUTROPHILS % 74.9 % (36.0-66.0); PLATELET COUNT, AUTOMATED 227 10^3/uL (150-450); RED BLOOD COUNT 3.94 10^6/uL (4.00-5.40); WHITE BLOOD COUNT 4.9 10^3/uL (4.0-10.0)
[2023-01-09] MEDS ORDERED: INSULIN LISPRO (NovoLOG) PER UNIT SC SCH (07:30)
[2023-01-09] MEDS: INSULIN LISPRO (NovoLOG) PER UNIT SC SCH ×4 (07:30→12:35)
[2023-01-09] MEDS ORDERED: atenoloL 50 MG TAB PO ONE (07:35)
[2023-01-09] MEDS ORDERED: LEVO1TAB40 PO (07:35)
[2023-01-09] MEDS ORDERED: ATEN100T PO (07:36)
[2023-01-09] MEDS ORDERED: SELF1KIT MC (07:36)
[2023-01-09] MEDS: ENOXAPARIN 40MG/0.4ML SYRINGE (J1650 PER 10MG) SC SCH (09:05)
[2023-01-09 09:06] VITALS: BP 182/81
[2023-01-09] MEDS: LACTOBACILLUS ACIDOPHILUS CAP (BACID) PO SCH ×2 (09:06→12:35)
[2023-01-09] MEDS ORDERED: FUROSEMIDE 40MG/4ML VIAL IV ONE (09:25)
[2023-01-09] MEDS: LEVALBUTEROL 1.25MG 0.5ML CONCENTRATE NEB INH SCH ×3 (09:32→10:04)
[2023-01-09 09:48] LABS: ABG BASE EXCESS 1.9 (-2.0-2.0); ABG HCO3 24.9 MMOL/L (22.0-26.0); ABG PARTIAL PRESSURE CO2 33.3 mmHg (35.0-45.0); ABG TOTAL CO2 25.9 MMOL/L (22.0-29.0); ABG pH (ARTERIAL) 7.491 UNITS (7.350-7.450)
[2023-01-09 09:59] VITALS: BP 161/76; TEMP 98.6
[2023-01-09 10:16] VITALS: O2SAT 94
[2023-01-09] MEDS ORDERED: metOLazone 5 MG TAB PO ONE (12:00)
[2023-01-09] MEDS ORDERED: FUROSEMIDE 20MG/2ML VIAL IV ONE (12:30)
[2023-01-09 14:05] VITALS: BP 150/88; TEMP 99.9; O2SAT 93
[2023-01-09 14:56] LABS: BLOOD UREA NITROGEN 12 MG/DL (7-21); CALCIUM LEVEL 8.5 MG/DL (8.4-10.2); CARBON DIOXIDE LEVEL 23 MEQ/L (22-30); CHLORIDE LEVEL 102 MEQ/L (98-107); CREATININE FOR GFR 0.7 MG/DL (0.7-1.5); GLOMERULAR FILTRATION RATE > 60.0 (>58); GLUCOSE, FASTING 173 MG/DL (70-99); POTASSIUM SERUM 3.9 MEQ/L (3.6-5.0); SODIUM LEVEL 138 MEQ/L (134-153)
[2023-01-09 16:49] LABS: CPK CREATINE PHOSPHOKINASE 297 U/L (30-170)
== END 2023-01-09 15:10 | disposition home or self-care (01) | DRG 720 ==
LOC: M ED 12:17 → EDBD 12:17 → M ED INP 16:15 → UNDOADMIN 16:15 → M MS4PR 20:14
PROVIDERS: ADMIT General Practice; ATTEND General Practice
DX: A41.9 Sepsis, unspecified organism (principal); J96.01 Acute respiratory failure with hypoxia; E87.20 Acidosis, unspecified; J18.9 Pneumonia, unspecified organism; Z68.42 Body mass index [BMI] 45.0-49.9, adult; R16.0 Hepatomegaly, not elsewhere classified; E66.01 Morbid (severe) obesity due to excess calories; K76.0 Fatty (change of) liver, not elsewhere classified; E11.9 Type 2 diabetes mellitus without complications; I16.0 Hypertensive urgency; I10 Essential (primary) hypertension; G47.33 Obstructive sleep apnea (adult) (pediatric); R07.89 Other chest pain; K12.2 Cellulitis and abscess of mouth; B96.20 Unspecified Escherichia coli [E. coli] as the cause of diseases classified elsewhere; N10 Acute pyelonephritis; Z79.84 Long term (current) use of oral hypoglycemic drugs; Z79.899 Other long term (current) drug therapy; Z20.822 Contact with and (suspected) exposure to COVID-19

== ENCOUNTER → 2023-01-07 | Outpatient (REF) | payer OTHER ==
[~2023-01-07] MED LIST changes: +ATOR1TAB19 PO; +DULA3PEN SC; +FERR325T19 PO; +PROBCAP14 PO; +VITA200016 PO
[2023-01-07 16:49] LABS: APPEARANCE, URINE HAZY (CLEAR); BACTERIA, URINE AUTO 1+ (NEGATIVE); BILIRUBIN, URINE AUTO NEGATIVE (NEGATIVE); BLOOD, URINE BLOOD 1+ (NEGATIVE); COLOR, URINE YELLOW (YELLOW); GLUCOSE, URINE (UA) AUTO 3+ mg/dL (NEGATIVE); KETONE, URINE AUTO NEGATIVE (NEGATIVE); LEUKOCYTE ESTERASE, URINE AUTO 3+ (NEGATIVE); NITRITE, URINE AUTO NEGATIVE (NEGATIVE); PROTEIN, URINE AUTO NEGATIVE (NEGATIVE); RBC, URINE AUTO 10 /HPF (0-3); SPECIFIC GRAVITY URINE AUTO 1.026 (1.002-1.035); SQUAMOUS EPITHELIAL CELL UR AU 7 /HPF (0-6); UROBILINOGEN, URINE AUTO 0.2 mg/dL (0.0-2.0); WBC, URINE AUTO 65 /HPF (0-3)
== END ==
LOC: M LAB REF 16:31
PROVIDERS: ATTEND Nurse Practitioner Family
DX: R30.0 Dysuria (principal)

== ENCOUNTER → 2023-02-24 | Outpatient (CLI) | payer OTHER ==
[~2023-02-24] MED LIST changes: +ATEN100T PO; +ATOR1TAB19 PO; +DULA3PEN SC; +FERR325T19 PO; +LEVO1TAB40 PO; +PROBCAP14 PO; +PROHANCE 279.3MG/ML 15ML VIAL ONE; +PROHANCE 279.3MG/ML 5ML VIAL ONE; +SELF1KIT MC; +VITA200016 PO
== END ==
LOC: M PLAIMG 09:43
PROVIDERS: ATTEND Nurse Practitioner Family
DX: R19.09 Other intra-abdominal and pelvic swelling, mass and lump (principal); D35.02 Benign neoplasm of left adrenal gland

== ENCOUNTER → 2023-04-23 | Outpatient (CLI) | payer OTHER ==
[~2023-04-23] MED LIST changes: -PROHANCE 279.3MG/ML 15ML VIAL ONE; -PROHANCE 279.3MG/ML 5ML VIAL ONE
== END ==
LOC: M LAB 09:42
PROVIDERS: ATTEND Nurse Practitioner Family
DX: D35.02 Benign neoplasm of left adrenal gland (principal)

== ENCOUNTER → 2023-06-26 | Outpatient (CLI) | payer OTHER | LOC: M RAD 08:20 | PROVIDERS: ATTEND Nurse Practitioner Family | DX: D35.02 Benign neoplasm of left adrenal gland (principal) ==

== ENCOUNTER → 2023-07-18 | Outpatient (CLI) | payer OTHER | LOC: M SLEEP 20:00 | PROVIDERS: ATTEND Physician Assistant | DX: R40.0 Somnolence (principal); G47.33 Obstructive sleep apnea (adult) (pediatric) ==

== ENCOUNTER → 2023-08-30 | Outpatient (CLI) | payer OTHER ==
[2023-08-30 10:38] LABS: BLOOD UREA NITROGEN 12 MG/DL (9-23); CALCIUM LEVEL 9.2 MG/DL (8.5-10.1); CARBON DIOXIDE LEVEL 26 MMOL/L (20-31); CHLORIDE LEVEL 100 MMOL/L (98-107); CREATININE FOR GFR 0.59 MG/DL (0.55-1.30); GLOMERULAR FILTRATION RATE > 60.0 (>58); GLUCOSE, FASTING 351 MG/DL (60-100); POTASSIUM SERUM 4.4 MMOL/L (3.5-5.1); SODIUM LEVEL 133 MMOL/L (136-145)
== END ==
LOC: M LAB 09:00
PROVIDERS: ATTEND Internal Medicine Cardiovascular Disease
DX: R09.89 Other specified symptoms and signs involving the circulatory and respiratory systems (principal); E11.9 Type 2 diabetes mellitus without complications; I25.10 Atherosclerotic heart disease of native coronary artery without angina pectoris

== ENCOUNTER 2024-03-02 11:39 | Emergency (ER) | payer OTHER ==
[~2024-03-02] VITALS: Ht 157.5 cm; Wt 115.3 kg
[2024-03-02 12:46] LABS: BASO % 0.2 % (0.0-1.0); HEMATOCRIT 36.7 % (36.0-47.0); HEMOGLOBIN 11.3 g/dl (12.0-15.5); LYMPH # 1.7 10^3/uL (1.5-5.0); LYMPH % 40.1 % (24.0-44.0); MEAN CORPUSCULAR HEMOGLOBIN 25.3 pg (27.0-33.0); MEAN CORPUSCULAR HGB CONC 30.8 g/dl (32.0-36.5); MEAN CORPUSCULAR VOLUME 82.3 fl (80.0-96.0); MONO # 0.3 10^3/uL (0.0-0.8); MONO % 6.1 % (2.0-8.0); NEUTROPHILS # 2.2 10^3/uL (1.5-8.5); NEUTROPHILS % 52.4 % (36.0-66.0); PLATELET COUNT, AUTOMATED 326 10^3/uL (150-450); RED BLOOD COUNT 4.46 10^6/uL (4.00-5.40); WHITE BLOOD COUNT 4.1 10^3/uL (4.0-10.0)
[2024-03-02 13:07] LABS: ERYTHROCYTE SEDIMENTATION RATE 81 mm/hr (0-20)
[2024-03-02 13:14] LABS: C REACTIVE PROTEIN QUANTITATIV 0.59 MG/DL (<1.0)
[2024-03-02 13:15] LABS: BLOOD UREA NITROGEN 14 MG/DL (9-23); CALCIUM LEVEL 9.9 MG/DL (8.5-10.1); CARBON DIOXIDE LEVEL 27 MMOL/L (20-31); CHLORIDE LEVEL 107 MMOL/L (98-107); CREATININE FOR GFR 0.69 MG/DL (0.55-1.30); GLOMERULAR FILTRATION RATE > 60.0 (>58); GLUCOSE, FASTING 118 MG/DL (60-100); SODIUM LEVEL 144 MMOL/L (136-145)
[2024-03-02 13:21] LABS: HCG, SERUM QUALITATIVE NEGATIVE (NEGATIVE)
[2024-03-02] MEDS ORDERED: AMPICILLIN SOD/SULBACTAM SOD 3 GM in DEXTROSE 5% (D5W) ADV/MINI-BAG 50 ML IV ONE (14:55)
[2024-03-02] MEDS: KETOROLAC 30 MG/ML 1ML VIAL IV ONE (15:16)
[2024-03-02] MEDS: dexAMETHasone 20MG/5ML VIAL IV ONE (15:16)
[2024-03-02] MEDS: AMPICILLIN SOD/SULBACTAM SOD 3 GM in SODIUM CHLORIDE 0.9% 100ML ADD 100 ML IV ONE (15:26)
[2024-03-02] MEDS ORDERED: ISOVUE-370 76% 100ML VIAL As Ordered ONE (15:26)
[2024-03-02] MEDS ORDERED: TRAM50TA2 PO (18:02)
[2024-03-02] MEDS ORDERED: AMOX875T2 PO (18:02)
[2024-03-02 18:21] VITALS: BP 170/93; TEMP 97.6; O2SAT 99
== END 2024-03-02 18:20 | disposition home or self-care (01) ==
LOC: M ED 11:39
DX: K04.7 Periapical abscess without sinus (principal); I10 Essential (primary) hypertension; E78.5 Hyperlipidemia, unspecified; Z98.84 Bariatric surgery status; Z88.6 Allergy status to analgesic agent; K02.9 Dental caries, unspecified
CPT/HCPCS: 70491; 80048; 83605; 84703; 85025; 85652; 86140; 87040; 87077; 87154; 96365; 96375; 99284; J0295; J1100; J1885; Q9967

== ENCOUNTER → 2024-04-18 | Outpatient (CLI) | payer OTHER ==
[~2024-04-18] MED LIST changes: +AMOX875T2 PO; +TRAM50TA2 PO
== END ==
LOC: M LAB 13:40
PROVIDERS: ATTEND Physician Assistant
DX: N91.2 Amenorrhea, unspecified (principal); Z32.01 Encounter for pregnancy test, result positive

== ENCOUNTER 2024-05-17 14:21 | Emergency (ER) | payer OTHER ==
[~2024-05-17] VITALS: Ht 157.5 cm; Wt 100.0 kg
[2024-05-17 14:54] LABS: BASO % 0.4 % (0.0-1.0); EOS # 0.1 10^3/uL (0.0-0.5); EOS % 1.3 % (0.0-3.0); HEMATOCRIT 33.3 % (36.0-47.0); LYMPH # 2.2 10^3/uL (1.5-5.0); LYMPH % 46.4 % (24.0-44.0); MEAN CORPUSCULAR HEMOGLOBIN 24.1 pg (27.0-33.0); MEAN CORPUSCULAR VOLUME 80.2 fl (80.0-96.0); MONO # 0.3 10^3/uL (0.0-0.8); MONO % 6.8 % (2.0-8.0); NEUTROPHILS # 2.1 10^3/uL (1.5-8.5); NEUTROPHILS % 44.9 % (36.0-66.0); PLATELET COUNT, AUTOMATED 304 10^3/uL (150-450); RED BLOOD COUNT 4.15 10^6/uL (4.00-5.40); WHITE BLOOD COUNT 4.7 10^3/uL (4.0-10.0)
[2024-05-17 15:29] LABS: BLOOD UREA NITROGEN 12 MG/DL (9-23); CALCIUM LEVEL 8.5 MG/DL (8.5-10.1); CARBON DIOXIDE LEVEL 27 MMOL/L (20-31); CHLORIDE LEVEL 106 MMOL/L (98-107); CREATININE FOR GFR 0.75 MG/DL (0.55-1.30); GLOMERULAR FILTRATION RATE > 60.0 (>58); GLUCOSE, FASTING 90 MG/DL (60-100); POTASSIUM SERUM 3.7 MMOL/L (3.5-5.1); SODIUM LEVEL 140 MMOL/L (136-145); THYROID STIMULATING HORMONE 0.867 uIU/ML (0.55-4.78)
[2024-05-17] MEDS ORDERED: ISOVUE-370 76% 100ML VIAL As Ordered ONE (15:46)
[2024-05-17 16:29] LABS: CK-MB VALUE MASS < 1.0 NG/ML (<3.6)
[2024-05-17 16:30] LABS: CPK CREATINE PHOSPHOKINASE 72 U/L (34-145); MB/CK RELATIVE INDEX 1.38 (< OR =4)
[2024-05-17 16:53] LABS: CK-MB VALUE MASS < 1.0 NG/ML (<3.6)
[2024-05-17 17:08] LABS: CPK CREATINE PHOSPHOKINASE 78 U/L (34-145); MB/CK RELATIVE INDEX 1.28 (< OR =4)
[2024-05-17 17:18] VITALS: BP 165/101
[2024-05-17] MEDS: MAALOX 30 ML SUSP *UDC PO ONE (17:18)
[2024-05-17] MEDS: LOSARTAN 50MG TABLET PO ONE (17:18)
[2024-05-17] MEDS: LIDOCAINE VISCOUS 2% SOLN 15ML UDC PO ONE (17:19)
[2024-05-17] MEDS ORDERED: CARA1TAB6 PO (18:01)
[2024-05-17] MEDS ORDERED: PROT1TAB2 PO (18:01)
[2024-05-17 18:21] VITALS: O2SAT 99
[2024-05-17 18:30] VITALS: BP 179/96; TEMP 98.8
== END 2024-05-17 18:35 | disposition home or self-care (01) ==
LOC: EDBD 14:21 → M ED 14:21
DX: R55 Syncope and collapse (principal); K29.70 Gastritis, unspecified, without bleeding; I11.0 Hypertensive heart disease with heart failure; E11.9 Type 2 diabetes mellitus without complications; E78.5 Hyperlipidemia, unspecified; Z98.84 Bariatric surgery status; Z79.899 Other long term (current) drug therapy; Z88.6 Allergy status to analgesic agent
CPT/HCPCS: 71275; 74174; 80048; 82550; 82553; 84443; 84484; 84702; 85025; 93005; 93041; 94760; 99285; Q9967

== ENCOUNTER 2024-05-30 10:45 | Emergency (ER) | payer OTHER ==
[~2024-05-30] VITALS: Ht 157.5 cm; Wt 106.2 kg
[~2024-05-30 10:45] MED LIST changes: +CARA1TAB6 PO; +PROT1TAB2 PO
[2024-05-30 11:33] LABS: BASO % 0.5 % (0.0-1.0); EOS % 0.7 % (0.0-3.0); HEMATOCRIT 36.2 % (36.0-47.0); HEMOGLOBIN 10.8 g/dl (12.0-15.5); LYMPH # 1.8 10^3/uL (1.5-5.0); LYMPH % 42.9 % (24.0-44.0); MEAN CORPUSCULAR HEMOGLOBIN 24.3 pg (27.0-33.0); MEAN CORPUSCULAR HGB CONC 29.8 g/dl (32.0-36.5); MEAN CORPUSCULAR VOLUME 81.5 fl (80.0-96.0); MONO # 0.3 10^3/uL (0.0-0.8); NEUTROPHILS % 47.7 % (36.0-66.0); PLATELET COUNT, AUTOMATED 369 10^3/uL (150-450); RED BLOOD COUNT 4.44 10^6/uL (4.00-5.40); WHITE BLOOD COUNT 4.2 10^3/uL (4.0-10.0)
[2024-05-30] MEDS: PANTOPRAZOLE 40MG VIAL IV ONE (11:54)
[2024-05-30 11:56] LABS: LIPASE 23 U/L (12-53)
[2024-05-30 11:58] LABS: ALBUMIN 3.5 G/DL (3.2-5.2); ALKALINE PHOSPHATASE 101 U/L (35-104); ALT/SGPT 22 U/L (7.0-40); AST/SGOT 22 U/L (<34); BILIRUBIN,DIRECT < 0.1 MG/DL (<0.4); BILIRUBIN,TOTAL 0.2 MG/DL (0.3-1.2); BLOOD UREA NITROGEN 11 MG/DL (9-23); CALCIUM LEVEL 9.2 MG/DL (8.5-10.1); CARBON DIOXIDE LEVEL 26 MMOL/L (20-31); CHLORIDE LEVEL 106 MMOL/L (98-107); CREATININE FOR GFR 0.68 MG/DL (0.55-1.30); GLOMERULAR FILTRATION RATE > 60.0 (>58); GLUCOSE, FASTING 138 MG/DL (60-100); POTASSIUM SERUM 4.3 MMOL/L (3.5-5.1); SODIUM LEVEL 142 MMOL/L (136-145); TOTAL PROTEIN 7.6 G/DL (5.7-8.2)
[2024-05-30 11:59] LABS: HCG, SERUM QUALITATIVE NEGATIVE (NEGATIVE)
[2024-05-30] MEDS: GASTROGRAFIN SOLUTION 30ML PO ONE (13:50)
[2024-05-30] MEDS ORDERED: ISOVUE-370 76% 100ML VIAL As Ordered ONE (14:17)
[2024-05-30 15:15] VITALS: BP 134/72; O2SAT 98
[2024-05-30 15:38] VITALS: TEMP 99
== END 2024-05-30 15:43 | disposition home or self-care (01) ==
LOC: EDBD 10:45 → M ED 10:45
DX: K29.50 Unspecified chronic gastritis without bleeding (principal); Z98.84 Bariatric surgery status; E11.9 Type 2 diabetes mellitus without complications; J45.909 Unspecified asthma, uncomplicated; I10 Essential (primary) hypertension; G47.33 Obstructive sleep apnea (adult) (pediatric); Z79.899 Other long term (current) drug therapy; Z88.6 Allergy status to analgesic agent
CPT/HCPCS: 74021; 74177; 80048; 80076; 83690; 84703; 85025; 93005; 96374; 99285; J2470; Q9963; Q9967

== ENCOUNTER → 2024-11-14 | Outpatient (REF) | payer OTHER, MEDICAID ==
[2024-11-14 19:11] LABS: BASO # 0.0 10^3/uL (0.0-0.2); BASO % 0.3 % (0.0-1.0); EOS # 0.0 10^3/uL (0.0-0.5); EOS % 0.9 % (0.0-3.0); LYMPH # 1.6 10^3/uL (1.5-5.0); LYMPH % 47.2 % (24.0-44.0); MONO # 0.3 10^3/uL (0.0-0.8); MONO % 7.8 % (2.0-8.0); NEUTROPHILS # 1.5 10^3/uL (1.5-8.5); NEUTROPHILS % 43.8 % (36.0-66.0); PLATELET COUNT, AUTOMATED 333 10^3/uL (150-450)
[2024-11-14 19:23] LABS: HCG, SERUM QUANTITATIVE < 2.6 MIU/ML (<4.2)
[2024-11-14 19:24] LABS: IRON (FE) 29 UG/DL (50-170); PERCENT SATURATION 7.4 % (13.2-45.0)
== END ==
LOC: M LAB REF 17:28
PROVIDERS: ATTEND Student in an Organized Health Care Education/Training Program
DX: N92.6 Irregular menstruation, unspecified (principal); D50.9 Iron deficiency anemia, unspecified

== ENCOUNTER → 2024-12-06 | Outpatient (REF) | payer OTHER, MEDICAID ==
[2024-12-06 18:47] LABS: BASO # 0.0 10^3/uL (0.0-0.2); BASO % 0.3 % (0.0-1.0); EOS # 0.0 10^3/uL (0.0-0.5); EOS % 0.9 % (0.0-3.0); LYMPH # 1.4 10^3/uL (1.5-5.0); LYMPH % 43.7 % (24.0-44.0); MONO # 0.3 10^3/uL (0.0-0.8); MONO % 8.4 % (2.0-8.0); NEUTROPHILS # 1.5 10^3/uL (1.5-8.5); NEUTROPHILS % 46.1 % (36.0-66.0); PLATELET COUNT, AUTOMATED 377 10^3/uL (150-450)
[2024-12-06 19:25] LABS: IRON (FE) 25.0 UG/DL (50-170); PERCENT SATURATION 6.2 % (13.2-45.0)
== END ==
LOC: M LAB REF 17:31
PROVIDERS: ATTEND Student in an Organized Health Care Education/Training Program
DX: D50.9 Iron deficiency anemia, unspecified (principal)

== ENCOUNTER 2025-01-04 10:34 | Outpatient (CLI) | payer OTHER ==
[~2025-01-04] VITALS: Ht 157.5 cm; Wt 111.4 kg
[~2025-01-04 10:34] MED LIST changes: +ALBUTEROL SULFATE 2.5 MG/0.5 ML INH CONCENTRATE NEB SOLN INH PRN; +EPINEPHrine INJ 1 MG/ML 1ML AMP IM PRN; +diphenhydrAMINE 50 MG/ML VIAL IV PRN
[2025-01-04 10:50] VITALS: BP 176/87; O2SAT 100
[2025-01-04] MEDS: IRON SUCROSE 200 MG IVP IV ONE (11:12)
[2025-01-04 12:05] VITALS: BP 161/86; O2SAT 100
== END 2025-01-04 12:05 | disposition home or self-care (01) ==
LOC: M INFU 10:34
PROVIDERS: ATTEND Student in an Organized Health Care Education/Training Program
DX: D50.9 Iron deficiency anemia, unspecified (principal); Z88.6 Allergy status to analgesic agent
CPT/HCPCS: 96374; J1756

== ENCOUNTER 2025-01-11 10:34 | Outpatient (CLI) | payer OTHER ==
[~2025-01-11] VITALS: Ht 162.6 cm; Wt 109.0 kg
[2025-01-11 10:40] VITALS: BP 145/87; O2SAT 100
[2025-01-11] MEDS: IRON SUCROSE 200MG IVP IV ONE (10:50)
[2025-01-11 11:10] VITALS: BP 139/87; O2SAT 100
== END 2025-01-11 11:12 ==
LOC: M INFU 10:34
PROVIDERS: ATTEND Student in an Organized Health Care Education/Training Program
DX: D50.9 Iron deficiency anemia, unspecified (principal); Z88.6 Allergy status to analgesic agent
CPT/HCPCS: 96374; J1756